=== PATIENT | male | born 1955 | race Hispanic/Latino ===

== ENCOUNTER 2020-07-12 16:39 | Inpatient (IN) | payer OTHER ==
--- OUTSIDE RECORDS SUMMARY | 2020-07-12 16:43 | XMS REPORT | Continuity of Care Document ---
:1955 Author Organization [facility] t Address [address] [place] [address] Care Team Providers Name Role Phone Unavailable Unavailable Unavailable Payers Payer Name Policy Type Policy Number Effective Date Expiration Date S ource Problems This patient has no known problems. Allergies, Adverse Reactions, Alerts Allergy Allergy Status Severity Reaction(s) Onset Inactive Treating Comm ents Source Name Type Date Date Clinician No Known DA Active U [facility] All[facility]ie 01-20 [place] 00:00: [address] Medications This patient has no known medications. Procedures This patient has no known procedures. Results Test Description Test Time Test Comments Results Result Comments Source GLUCOSE BEDSIDE TESTING 2020-02-08 11:55:00 Test Item Value Reference Range Interpretation Comme nts GLUCOSE BEDSIDE TESTING (test code = GLUBED) 137 MG/DL 60-99 H GLUCOSE BEDSIDE [id number] 08:08:00 Test Item Value Reference Range Interpretation Comments GLUCOSE BEDSIDE TESTING (test code 165 MG/DL 60-99 H = GLUBED) BASIC METABOLIC [id number] 06:52:00 Test Item Value Reference Range Interpretation Comments SODIUM (test code = 133 MMOL/L 137-145 L NA) POTASSIUM (test code = 4.7 MMOL/L 3.5-5.1 N K) CHLORIDE (test code = 99 MMOL/L 98-107 N CL) CARBON DIOXIDE (test 26 MMOL/L 22-30 N code = CO2) ANION GAP (test code = 13 MMOL/L 14-24 L GAP) GLUCOSE (test code = 166 MG/DL 74-106 H GLU) BLOOD UREA NITROGEN 21 MG/DL 9-20 H (test code = BUN) GLOMERULAR FILTRATION > 60 Report ing units: RATE (test code = GFR) ml/mi n/1.73 m2 (Modified MDRD Formula)Referen ce Range: > or = 6 0 ml/min/1.73 m2 CREATININE (test code 1.10 MG/DL 0.66-1.25 N = CREAT) CALCIUM (test code = 8.6 MG/DL 8.4-10.2 N CA) BASIC METABOLIC [id number] 06:50:00 Test Item Value Reference Range Interpretation Comments SODIUM (test code = 133 MMOL/L 137-145 L NA) POTASSIUM (test code = 4.7 MMOL/L 3.5-5.1 N K) CHLORIDE (test code = 99 MMOL/L 98-107 N CL) CARBON DIOXIDE (test MMOL/L 22-30 code = CO2) GLUCOSE (test code = MG/DL 74-106 GLU) BLOOD UREA NITROGEN MG/DL 9-20 (test code = BUN) GLOMERULAR FILTRATION > 60 Report ing units: RATE (test code = GFR) ml/mi n/1.73 m2 (Modified MDRD Formula)Referen ce Range: > or = 6 0 ml/min/1.73 m2 CREATININE (test code 1.10 MG/DL 0.66-1.25 N = CREAT) CALCIUM (test code = MG/DL 8.7-9.7 CA) BASIC METABOLIC [id number] 06:50:00 Test Item Value Reference Range Interpretation Comments SODIUM (test code = 133 MMOL/L 137-145 L NA) POTASSIUM (test code = 4.7 MMOL/L 3.5-5.1 N K) CHLORIDE (test code = 99 MMOL/L 98-107 N CL) CARBON DIOXIDE (test 26 MMOL/L 22-30 N code = CO2) ANION GAP (test code = 13 MMOL/L 14-24 L GAP) GLUCOSE (test code = MG/DL 74-106 GLU) BLOOD UREA NITROGEN MG/DL 9-20 (test code = BUN) GLOMERULAR FILTRATION > 60 Report ing units: RATE (test code = GFR) ml/mi n/1.73 m2 (Modified MDRD Formula)Referen ce Range: > or = 6 0 ml/min/1.73 m2 CREATININE (test code 1.10 MG/DL 0.66-1.25 N = CREAT) CALCIUM (test code = MG/DL 8.7-9.7 CA) BASIC METABOLIC [id number] 06:47:00 Test Item Value Reference Range Interpretation Comments SODIUM (test code = NA) 133 MMOL/L 137-145 L POTASSIUM (test code = K) 4.7 MMOL/L 3.5-5.1 N CHLORIDE (test code = CL) 99 MMOL/L 98-107 N CARBON DIOXIDE (test code = CO2) MMOL/L 22-30 GLUCOSE (test code = GLU) MG/DL 74-106 BLOOD UREA NITROGEN (test code = MG/DL 9-20 BUN) GLOMERULAR FILTRATION RATE (test code = GFR) CREATININE (test code = CREAT) MG/DL 0.66-1.25 CALCIUM (test code = CA) MG/DL 8.7-9.7 CBC W/AUTO [id number] 06:29:00 Test Item Value Reference Range Interpretation Comments WHITE BLOOD CELL (test code = 10.2 K/MM3 3.8-9.8 H WBC) RED BLOOD CELL (test code = 2.83 M/MM3 3.95-5.67 L RBC) HEMOGLOBIN (test code = HGB) 8.6 G/DL 12.4-16.7 L HEMATOCRIT (test code = HCT) 26.3 % 35.9-49.5 L MEAN CELL VOLUME (test code = 93 fL 81.7-96.1 N MCV) MEAN CELL HGB (test code = MCH) 30.4 pg 27.6-33.2 N MEAN CELL HGB CONCETRATION 32.7 % 32.9-35.5 L (test code = MCHC) RED CELL DISTRIBUTION WIDTH 13.5 % 12.1-15.2 N (test code = RDW) PLATELET COUNT (test code = 281 K/MM3 129-368 PLT) MEAN PLATELET VOLUME (test code 10.0 fl 7.4-10.4 N = MPV) NEUTROPHIL % (test code = NT%) 73.6 % 43-75 N IMMATURE GRANULOCYTE % (test 1.5 % 0.0-2.0 N code = IG%) LYMPHOCYTE % (test code = LY%) 9.6 % 14-44 L MONOCYTE % (test code = MO%) 13.2 % 4-13 H EOSINOPHIL % (test code = EO%) 1.7 % 0-6 N BASOPHIL % (test code = BA%) 0.4 % 0-2 N NUCLEATED RBC % (test code = 0.5 % 0-1.0 N NRBC%) NEUTROPHIL # (test code = NT#) 7.50 K/mm3 2.0-7.6 N IMMATURE GRANULOCYTE # (test 0.15 x10 3/uL 0-0.03 H code = IG#) LYMPHOCYTE # (test code = LY#) 0.98 K/mm3 1.0-3.8 L MONOCYTE # (test code = MO#) 1.34 K/mm3 0.1-0.8 H EOSINOPHIL # (test code = EO#) 0.17 K/mm3 0.0-0.2 N BASOPHIL # (test code = BA#) 0.04 K/mm3 0.0-0.2 N NUCLEATED RBC # (test code = 0.05 K/mm3 0.0-0.1 N NRBC#) GLUCOSE BEDSIDE [id number] 20:18:00 Test Item Value Reference Range Interpretation Comments GLUCOSE BEDSIDE TESTING (test code 149 MG/DL 60-99 H = GLUBED) GLUCOSE BEDSIDE [id number] 16:48:00 Test Item Value Reference Range Interpretation Comments GLUCOSE BEDSIDE TESTING (test code 164 MG/DL 60-99 H = GLUBED) CBC W/AUTO [id number] 15:10:00 Test Item Value Reference Range Interpretation Comments WHITE BLOOD CELL (test code = 8.6 K/MM3 3.8-9.8 N WBC) RED BLOOD CELL (test code = 2.56 M/MM3 3.95-5.67 L RBC) HEMOGLOBIN (test code = HGB) 7.8 G/DL 12.4-16.7 L HEMATOCRIT (test code = HCT) 23.2 % 35.9-49.5 L MEAN CELL VOLUME (test code = 91 fL 81.7-96.1 N MCV) MEAN CELL HGB (test code = MCH) 30.5 pg 27.6-33.2 N MEAN CELL HGB CONCETRATION 33.6 % 32.9-35.5 N (test code = MCHC) RED CELL DISTRIBUTION WIDTH 13.4 % 12.1-15.2 N (test code = RDW) PLATELET COUNT (test code = 217 K/MM3 129-368 PLT) MEAN PLATELET VOLUME (test code 10.0 fl 7.4-10.4 N = MPV) NEUTROPHIL % (test code = NT%) 67.2 % 43-75 N IMMATURE GRANULOCYTE % (test 1.3 % 0.0-2.0 N code = IG%) LYMPHOCYTE % (test code = LY%) 14.1 % 14-44 N MONOCYTE % (test code = MO%) 16.3 % 4-13 H EOSINOPHIL % (test code = EO%) 0.8 % 0-6 N BASOPHIL % (test code = BA%) 0.3 % 0-2 N NUCLEATED RBC % (test code = 0.5 % 0-1.0 N NRBC%) NEUTROPHIL # (test code = NT#) 5.80 K/mm3 2.0-7.6 N IMMATURE GRANULOCYTE # (test 0.11 x10 3/uL 0-0.03 H code = IG#) LYMPHOCYTE # (test code = LY#) 1.22 K/mm3 1.0-3.8 N MONOCYTE # (test code = MO#) 1.41 K/mm3 0.1-0.8 H EOSINOPHIL # (test code = EO#) 0.07 K/mm3 0.0-0.2 N BASOPHIL # (test code = BA#) 0.03 K/mm3 0.0-0.2 N NUCLEATED RBC # (test code = 0.04 K/mm3 0.0-0.1 N NRBC#) BASIC METABOLIC [id number] 13:50:00 Test Item Value Reference Range Interpretation Comments SODIUM (test code = 132 MMOL/L 137-145 L NA) POTASSIUM (test code = 4.0 MMOL/L 3.5-5.1 N K) CHLORIDE (test code = 98 MMOL/L 98-107 N CL) CARBON DIOXIDE (test 25 MMOL/L 22-30 N code = CO2) ANION GAP (test code = 13 MMOL/L 14-24 L GAP) GLUCOSE (test code = 138 MG/DL 74-106 H GLU) BLOOD UREA NITROGEN 21 MG/DL 9-20 H (test code = BUN) GLOMERULAR FILTRATION > 60 Report ing units: RATE (test code = GFR) ml/mi n/1.73 m2 (Modified MDRD Formula)Referen ce Range: > or = 6 0 ml/min/1.73 m2 CREATININE (test code 1.00 MG/DL 0.66-1.25 N = CREAT) CALCIUM (test code = 8.2 MG/DL 8.4-10.2 L CA) BASIC METABOLIC [id number] 13:48:00 Test Item Value Reference Range Interpretation Comments SODIUM (test code = 132 MMOL/L 137-145 L NA) POTASSIUM (test code = 4.0 MMOL/L 3.5-5.1 N K) CHLORIDE (test code = 98 MMOL/L 98-107 N CL) CARBON DIOXIDE (test MMOL/L 22-30 code = CO2) GLUCOSE (test code = MG/DL 74-106 GLU) BLOOD UREA NITROGEN MG/DL 9-20 (test code = BUN) GLOMERULAR FILTRATION > 60 Report ing units: RATE (test code = GFR) ml/mi n/1.73 m2 (Modified MDRD Formula)Referen ce Range: > or = 6 0 ml/min/1.73 m2 CREATININE (test code 1.00 MG/DL 0.66-1.25 N = CREAT) CALCIUM (test code = MG/DL 8.7-9.7 CA) BASIC METABOLIC [id number] 13:46:00 Test Item Value Reference Range Interpretation Comments SODIUM (test code = NA) 132 MMOL/L 137-145 L POTASSIUM (test code = K) 4.0 MMOL/L 3.5-5.1 N CHLORIDE (test code = CL) 98 MMOL/L 98-107 N CARBON DIOXIDE (test code = CO2) MMOL/L 22-30 GLUCOSE (test code = GLU) MG/DL 74-106 BLOOD UREA NITROGEN (test code = MG/DL 9-20 BUN) GLOMERULAR FILTRATION RATE (test code = GFR) CREATININE (test code = CREAT) MG/DL 0.66-1.25 CALCIUM (test code = CA) MG/DL 8.7-9.7 GLUCOSE BEDSIDE [id number] 09:47:00 Test Item Value Reference Range Interpretation Comments GLUCOSE BEDSIDE TESTING (test code 237 MG/DL 60-99 H = GLUBED) - XR CHEST [id number] 08:13:00 Patient Name: AKILAH ANDRES Unit No: [id number] EXAMS: CPT CODE: [id number] XR CHEST 1V [id number] EXAM: XR Chest 1 View INDICATION: S/P CABG LOCATION CODE: B2 COMPARISON: Chest radiograph dated 02/06/2020 TECHNIQUE: Frontal view of the chest was obtained. FINDINGS: Right subclavian central venous catheter has its tip at the mid superior vena cava. Pulmonary vascular congestion is unchanged from prior. There is no pleural effusion or pneumothorax. The cardiomediastinal silhouette is enlarged, but unchanged. No acute osseous abnormality is identified. IMPRESSION: No interval change from prior radiograph. at 08 Reported and signed by: Gloria Goss MD CC: Case Castellanos MD Technologist: Baylee Diego RT(R) Transcrpt Date/Tm/Trnsp: 02/07/2020 (812) [id number].[email or web address].[id number] Orig Print D/T: S: 02/07/2020 (817) [facility] NAME: AKILAH ANDRES [id number] PHYS: [place] [address] : 1955 AGE: 64 SEX: M LOC: Z.364 A PHONE #: [phone] EXAM DATE: 02/07/2020 STATUS: ADM IN FAX #: [phone] RADIOLOGY NO: PAGE 1 Signed ReportGLUCOSE BEDSIDE [id number] 08:07:00 Test Item Value Reference Range Interpretation Comments GLUCOSE BEDSIDE TESTING (test code 292 MG/DL 60-99 H = GLUBED) GLUCOSE BEDSIDE [id number] 03:04:00 Test Item Value Reference Range Interpretation Comments GLUCOSE BEDSIDE TESTING (test code 187 MG/DL 60-99 H = GLUBED) GLUCOSE BEDSIDE [id number] 19:58:00 Test Item Value Reference Range Interpretation Comments GLUCOSE BEDSIDE TESTING (test code 233 MG/DL 60-99 H = GLUBED) GLUCOSE BEDSIDE [id number] 14:17:00 Test Item Value Reference Range Interpretation Comments GLUCOSE BEDSIDE TESTING (test code 256 MG/DL 60-99 H = GLUBED) - XR CHEST [id number] 10:51:00 Patient Name: AKILAH ANDRES Unit No: [id number] EXAMS: CPT CODE: [id number] XR CHEST 1V [id number] Dictation location: U19. CHEST, FRONTAL VIEW HI STORY: post chest tube removal FINDINGS: Since 02/06/20, the left chest tubes and likely mediastinal drains have been removed. No pneumothorax. Continued cardiomegaly with mild central vascular congestion. Aorta is partially calcified. Sternotomy wires. Right subclavian line within the SVC. Degenerative changes affect the thoracic spine. IMPRESSION: Removal of the chest tubes. No pneumothorax. at 1051 Reported and signed by: Yina Barrios MD CC: Case Castellanos MD; Sara Dillon FLATBED DRIVER Technologist: [facility] STUDENT ; RT Carla(R) Transcrpt Date/Tm/Trnsp: 02/06/2020 (1051) [id number].SDR.SP17 Orig Print D/T: S: 02/06/2020 (2193) [facility] NAME: ANDRESAKILAH [address] PHYS: GABRIELE.Anjali [place] [address] : 1955 AGE: 64 SEX: M [facility] NO: [id number] LOC: Z.SI02 A PHONE #: [phone] EXAMDATE: 02/06/2020 STATUS: ADM IN FAX #: [phone] RADIOLOGY NO: PAGE1 Signed ReportGLUCOSE BEDSIDE [id number] 09:54:00 Test Item Value Reference Range Interpretation Comments GLUCOSE BEDSIDE TESTING (test code 222 MG/DL 60-99 H = GLUBED) GLUCOSE BEDSIDE [id number] 09:53:00 Test Item Value Reference Range Interpretation Comments GLUCOSE BEDSIDE TESTING (test code 162 MG/DL 60-99 H = GLUBED) GLUCOSE BEDSIDE [id number] 09:50:00 Test Item Value Reference Range Interpretation Comments GLUCOSE BEDSIDE TESTING (test code 135 MG/DL 60-99 H = GLUBED) GLUCOSE BEDSIDE [id number] 09:49:00 Test Item Value Reference Range Interpretation Comments GLUCOSE BEDSIDE TESTING (test code 180 MG/DL 60-99 H = GLUBED) GLUCOSE BEDSIDE [id number] 09:35:00 Test Item Value Reference Range Interpretation Comments GLUCOSE BEDSIDE TESTING (test code 231 MG/DL 60-99 H = GLUBED) - XR CHEST [id number] 07:52:00 Patient Name: AKILAH ANDRES Unit No: [id number] EXAMS: CPT CODE: [id number] XR CHEST 1V [id number] EXAM: XR Chest 1 View INDICATION: S/P CABG LOCATION CODE: B2 COMPARISON: Chest radiograph dated 02/05/2020 TECHNIQUE: Frontal view of the chest was obtained. FINDINGS: Life support lines and tubesare in unchanged position. Mild pulmonary vascular congestion is unchanged from prior. Thereis no pleural effusion or pneumothorax. The cardiomediastinal silhouette is enlarged, but unchanged. No acute osseous abnormality is identified. IMPRESSION: No interval change from prior radiograph. at 0752 Reported and signed by: Gloria Goss MD CC: Case Castellanos MD Technologist: Westley Granger, RT(R) Transcrpt Date/Tm/Trnsp: 02/06/2020 (075) [id number].[email or web address].[id number] Orig Print D/T: S: 02/06/2020 (0757) [facility] NAME: AKILAH ANDRES [address] PHYS: [place] [address] : 1955 AGE: 64 SEX: M LOC: Z.SI02 A PHONE #: [phone] EXAM DATE: 02/06/2020 STATUS: ADM IN FAX #: [phone] RADIOLOGY NO: PAGE 1 Signed ReportBASIC METABOLIC PANEL 2020-02-06 05:16:00 Test Item Value Reference Range Interpretation Comments SODIUM (test code = 132 MMOL/L 137-145 L NA) POTASSIUM (test code = 4.1 MMOL/L 3.5-5.1 N K) CHLORIDE (test code = 96 MMOL/L 98-107 L CL) CARBON DIOXIDE (test 26 MMOL/L 22-30 N code = CO2) GLUCOSE (test code = 256 MG/DL 74-106 H GLU) BLOOD UREA NITROGEN 25 MG/DL 9-20 H (test code = BUN) GLOMERULAR FILTRATION > 60 Report ing units: RATE (test code = GFR) ml/mi n/1.73 m2 (Modified MDRD Formula)Referen ce Range: > or = 6 0 ml/min/1.73 m2 CREATININE (test code 1.00 MG/DL 0.66-1.25 N = CREAT) CALCIUM (test code = 8.4 MG/DL 8.4-10.2 N CA) [id number] 05:16:00 Test Item Value Reference Range Interpretation Comments MAGNESIUM (test code = MAG) 1.9 MG/DL 1.6-2.3 N BASIC METABOLIC [id number] 05:14:00 Test Item Value Reference Range Interpretation Comments SODIUM (test code = 132 MMOL/L 137-145 L NA) POTASSIUM (test code = 4.1 MMOL/L 3.5-5.1 N K) CHLORIDE (test code = 96 MMOL/L 98-107 L CL) CARBON DIOXIDE (test MMOL/L 22-30 code = CO2) GLUCOSE (test code = MG/DL 74-106 GLU) BLOOD UREA NITROGEN MG/DL 9-20 (test code = BUN) GLOMERULAR FILTRATION > 60 Report ing units: RATE (test code = GFR) ml/mi n/1.73 m2 (Modified MDRD Formula)Referen ce Range: > or = 6 0 ml/min/1.73 m2 CREATININE (test code 1.00 MG/DL 0.66-1.25 N = CREAT) CALCIUM (test code = MG/DL 8.7-9.7 CA) [id number] 05:14:00 Test Item Value Reference Range Interpretation Comments MAGNESIUM (test code = MAG) MG/DL 1.6-2.3 BASIC METABOLIC [id number] 05:13:00 Test Item Value Reference Range Interpretation Comments SODIUM (test code = NA) 132 MMOL/L 137-145 L POTASSIUM (test code = K) 4.1 MMOL/L 3.5-5.1 N CHLORIDE (test code = CL) 96 MMOL/L 98-107 L CARBON DIOXIDE (test code = CO2) MMOL/L 22-30 GLUCOSE (test code = GLU) MG/DL 74-106 BLOOD UREA NITROGEN (test code = MG/DL 9-20 BUN) GLOMERULAR FILTRATION RATE (test code = GFR) CREATININE (test code = CREAT) MG/DL 0.66-1.25 CALCIUM (test code = CA) MG/DL 8.7-9.7 [id number] 05:13:00 Test Item Value Reference Range Interpretation Comments MAGNESIUM (test code = MAG) MG/DL 1.6-2.3 BASIC METABOLIC [id number] 05:12:00 Test Item Value Reference Range Interpretation Comments SODIUM (test code = NA) 132 MMOL/L 137-145 L POTASSIUM (test code = K) MMOL/L 3.5-5.1 CHLORIDE (test code = CL) 96 MMOL/L 98-107 L CARBON DIOXIDE (test code = CO2) MMOL/L 22-30 GLUCOSE (test code = GLU) MG/DL 74-106 BLOOD UREA NITROGEN (test code = MG/DL 9-20 BUN) GLOMERULAR FILTRATION RATE (test code = GFR) CREATININE (test code = CREAT) MG/DL 0.66-1.25 CALCIUM (test code = CA) MG/DL 8.7-9.7 [id number] 05:12:00 Test Item Value Reference Range Interpretation Comments MAGNESIUM (test code = MAG) MG/DL 1.6-2.3 PROTHROMBIN [id number] 05:04:00 Test Item Value Reference Range Interpretation Comments PROTHROMBIN TIME 13.0 SECONDS 9.4-12.5 H PATIENT (test code = PTP) INTERNATIONAL NORMAL 1.2 The INR is to be RATIO (test code = used only for INR) monitoring oral anticoagulantth erap y. INDICATION I NR VALUE ---- ---- ---- -------1. Prophylaxis, de ep venous thrombos is, including hig h risk surgery. 2.0 - 3.0 2. Prophylaxis, de ep venous thrombos is, hip surgery, treatment for d eep venous thrombosis or pulmonary prevention of systemic emboli sm in patients wit h valvular heart disease, atrial fibrillation, tissue heart va lve, or acute myocar dial infarction. 2.0 - 3 .0 3. Mechanical prosthesis hear t valves, recurrent syste agustin embolism. 3.0 - 4.5 PTT [id number] 05:04:00 Test Item Value Reference Range Interpretation Comments PTT ACTIVATED (test code = APTT) 23.7 SECONDS 25.1-36.5 L CBC W/AUTO [id number] 04:58:00 Test Item Value Reference Range Interpretation Comments WHITE BLOOD CELL (test code = 10.8 K/MM3 3.8-9.8 H WBC) RED BLOOD CELL (test code = 2.68 M/MM3 3.95-5.67 L RBC) HEMOGLOBIN (test code = HGB) 8.3 G/DL 12.4-16.7 L HEMATOCRIT (test code = HCT) 24.3 % 35.9-49.5 L MEAN CELL VOLUME (test code = 91 fL 81.7-96.1 N MCV) MEAN CELL HGB (test code = MCH) 31.0 pg 27.6-33.2 N MEAN CELL HGB CONCETRATION 34.2 % 32.9-35.5 N (test code = MCHC) RED CELL DISTRIBUTION WIDTH 13.4 % 12.1-15.2 N (test code = RDW) PLATELET COUNT (test code = 166 K/MM3 129-368 PLT) MEAN PLATELET VOLUME (test code 9.6 fl 7.4-10.4 N = MPV) NEUTROPHIL % (test code = NT%) 74.6 % 43-75 N IMMATURE GRANULOCYTE % (test 1.2 % 0.0-2.0 N code = IG%) LYMPHOCYTE % (test code = LY%) 12.6 % 14-44 L MONOCYTE % (test code = MO%) 10.8 % 4-13 N EOSINOPHIL % (test code = EO%) 0.5 % 0-6 N BASOPHIL % (test code = BA%) 0.3 % 0-2 N NUCLEATED RBC % (test code = 0.0 % 0-1.0 N NRBC%) NEUTROPHIL # (test code = NT#) 8.09 K/mm3 2.0-7.6 H IMMATURE GRANULOCYTE # (test 0.13 x10 3/uL 0-0.03 H code = IG#) LYMPHOCYTE # (test code = LY#) 1.37 K/mm3 1.0-3.8 N MONOCYTE # (test code = MO#) 1.17 K/mm3 0.1-0.8 H EOSINOPHIL # (test code = EO#) 0.05 K/mm3 0.0-0.2 N BASOPHIL # (test code = BA#) 0.03 K/mm3 0.0-0.2 N NUCLEATED RBC # (test code = 0.00 K/mm3 0.0-0.1 N NRBC#) GLUCOSE BEDSIDE [id number] 17:06:00 Test Item Value Reference Range Interpretation Comments GLUCOSE BEDSIDE TESTING 385 MG/DL 60-99 HH Noti fied Physician~ (test code = GLUBED) GLUCOSE BEDSIDE [id number] 12:54:00 Test Item Value Reference Range Interpretation Comments GLUCOSE BEDSIDE TESTING 357 MG/DL 60-99 HH Noti fied Physician~ (test code = GLUBED) - XR CHEST [id number] 08:06:00 Patient Name: AKILAH ANDRES Unit No: [id number] EXAMS: CPT CODE: [id number] XR CHEST 1V [id number] EXAM: CHEST ONE VIEW INDICATION: S/P CABG LOCATION: B2 COMPARISON: February 04, 2020 TECHNIQUE: AP view of the chest FINDINGS: Right central venous catheter tip overlies the atriocaval junction. The heart size is enlarged. There is evidence of prior thoracic surgery. Mild congestive changes bilaterally. No pneumothorax or pleural effusion is identified. The osseous structures are normal. IMPRESSION: Cardiomegaly with mild congestive changes. at 0806 Reported and signed by: Flakita Zamora MD CC: Case Castellanos MDTechnologist: Westley Granger, RT(R) Transcrpt Date/Tm/Trnsp: 02/05/2020 (805) 16 Orig Print D/T: S: 02/05/2020 (808) [facility] NAME: AKILAH ANDRES [address] PHYS: [place] [address] : 1955 AGE: 64 SEX: M LOC: [id number].[id number] APHONE #: [phone] EXAM DATE: 02/05/2020 STATUS: ADM IN FAX #: [phone] RADIOLOGY NO: PAGE 1 Signed ReportBASIC METABOLIC [id number] 05:34:00 Test Item Value Reference Range Interpretation Comments SODIUM (test code = 134 MMOL/L 137-145 L NA) POTASSIUM (test code = 4.6 MMOL/L 3.5-5.1 N K) CHLORIDE (test code = 97 MMOL/L 98-107 L CL) CARBON DIOXIDE (test 26 MMOL/L 22-30 N code = CO2) GLUCOSE (test code = 253 MG/DL 74-106 H GLU) BLOOD UREA NITROGEN 23 MG/DL 9-20 H (test code = BUN) GLOMERULAR FILTRATION > 60 Report ing units: RATE (test code = GFR) ml/mi n/1.73 m2 (Modified MDRD Formula)Referen ce Range: > or = 6 0 ml/min/1.73 m2 CREATININE (test code 1.10 MG/DL 0.66-1.25 N = CREAT) CALCIUM (test code = 8.1 MG/DL 8.4-10.2 L CA) [id number] 05:34:00 Test Item Value Reference Range Interpretation Comments MAGNESIUM (test code = MAG) 1.9 MG/DL 1.6-2.3 N BASIC METABOLIC [id number] 05:33:00 Test Item Value Reference Range Interpretation Comments SODIUM (test code = 134 MMOL/L 137-145 L NA) POTASSIUM (test code = 4.6 MMOL/L 3.5-5.1 N K) CHLORIDE (test code = 97 MMOL/L 98-107 L CL) CARBON DIOXIDE (test 26 MMOL/L 22-30 N code = CO2) GLUCOSE (test code = 253 MG/DL 74-106 H GLU) BLOOD UREA NITROGEN 23 MG/DL 9-20 H (test code = BUN) GLOMERULAR FILTRATION > 60 Report ing units: RATE (test code = GFR) ml/mi n/1.73 m2 (Modified MDRD Formula)Referen ce Range: > or = 6 0 ml/min/1.73 m2 CREATININE (test code 1.10 MG/DL 0.66-1.25 N = CREAT) CALCIUM (test code = 8.1 MG/DL 8.4-10.2 L CA) [id number] 05:33:00 Test Item Value Reference Range Interpretation Comments MAGNESIUM (test code = MAG) MG/DL 1.6-2.3 BASIC METABOLIC [id number] 05:32:00 Test Item Value Reference Range Interpretation Comments SODIUM (test code = 134 MMOL/L 137-145 L NA) POTASSIUM (test code = 4.6 MMOL/L 3.5-5.1 N K) CHLORIDE (test code = 97 MMOL/L 98-107 L CL) CARBON DIOXIDE (test MMOL/L 22-30 code = CO2) GLUCOSE (test code = MG/DL 74-106 GLU) BLOOD UREA NITROGEN MG/DL 9-20 (test code = BUN) GLOMERULAR FILTRATION > 60 Report ing units: RATE (test code = GFR) ml/mi n/1.73 m2 (Modified MDRD Formula)Referen ce Range: > or = 6 0 ml/min/1.73 m2 CREATININE (test code 1.10 MG/DL 0.66-1.25 N = CREAT) CALCIUM (test code = MG/DL 8.7-9.7 CA) [id number] 05:32:00 Test Item Value Reference Range Interpretation Comments MAGNESIUM (test code = MAG) MG/DL 1.6-2.3 BASIC METABOLIC [id number] 05:30:00 Test Item Value Reference Range Interpretation Comments SODIUM (test code = NA) 134 MMOL/L 137-145 L POTASSIUM (test code = K) 4.6 MMOL/L 3.5-5.1 N CHLORIDE (test code = CL) 97 MMOL/L 98-107 L CARBON DIOXIDE (test code = CO2) MMOL/L 22-30 GLUCOSE (test code = GLU) MG/DL 74-106 BLOOD UREA NITROGEN (test code = MG/DL 9-20 BUN) GLOMERULAR FILTRATION RATE (test code = GFR) CREATININE (test code = CREAT) MG/DL 0.66-1.25 CALCIUM (test code = CA) MG/DL 8.7-9.7 [id number] 05:30:00 Test Item Value Reference Range Interpretation Comments MAGNESIUM (test code = MAG) MG/DL 1.6-2.3 PROTHROMBIN [id number] 05:25:00 Test Item Value Reference Range Interpretation Comments PROTHROMBIN TIME 13.0 SECONDS 9.4-12.5 H PATIENT (test code = PTP) INTERNATIONAL NORMAL 1.2 The INR is to be RATIO (test code = used only for INR) monitoring oral anticoagulantth erap y. INDICATION I NR VALUE ---- ---- ---- -------1. Prophylaxis, de ep venous thrombos is, including hig h risk surgery. 2.0 - 3.0 2. Prophylaxis, de ep venous thrombos is, hip surgery, treatment for d eep venous thrombosis or pulmonary prevention of systemic emboli sm in patients wit h valvular heart disease, atrial fibrillation, tissue heart va lve, or acute myocar dial infarction. 2.0 - 3 .0 3. Mechanical prosthesis hear t valves, recurrent syste agustin embolism. 3.0 - 4.5 PTT [id number] 05:25:00 Test Item Value Reference Range Interpretation Comments PTT ACTIVATED (test code = APTT) 23.5 SECONDS 25.1-36.5 L CBC W/AUTO [id number] 05:12:00 Test Item Value Reference Range Interpretation Comments WHITE BLOOD CELL (test code = 12.7 K/MM3 3.8-9.8 H WBC) RED BLOOD CELL (test code = 2.42 M/MM3 3.95-5.67 L RBC) HEMOGLOBIN (test code = HGB) 7.4 G/DL 12.4-16.7 L HEMATOCRIT (test code = HCT) 22.1 % 35.9-49.5 L MEAN CELL VOLUME (test code = 91 fL 81.7-96.1 N MCV) MEAN CELL HGB (test code = MCH) 30.6 pg 27.6-33.2 N MEAN CELL HGB CONCETRATION 33.5 % 32.9-35.5 N (test code = MCHC) RED CELL DISTRIBUTION WIDTH 13.2 % 12.1-15.2 N (test code = RDW) PLATELET COUNT (test code = 128 K/MM3 129-368 L PLT) MEAN PLATELET VOLUME (test code 9.6 fl 7.4-10.4 N = MPV) NEUTROPHIL % (test code = NT%) 80.7 % 43-75 H IMMATURE GRANULOCYTE % (test 0.8 % 0.0-2.0 N code = IG%) LYMPHOCYTE % (test code = LY%) 9.1 % 14-44 L MONOCYTE % (test code = MO%) 9.1 % 4-13 N EOSINOPHIL % (test code = EO%) 0.1 % 0-6 N BASOPHIL % (test code = BA%) 0.2 % 0-2 N NUCLEATED RBC % (test code = 0.0 % 0-1.0 N NRBC%) NEUTROPHIL # (test code = NT#) 10.24 K/mm3 2.0-7.6 H IMMATURE GRANULOCYTE # (test 0.10 x10 3/uL 0-0.03 H code = IG#) LYMPHOCYTE # (test code = LY#) 1.16 K/mm3 1.0-3.8 N MONOCYTE # (test code = MO#) 1.15 K/mm3 0.1-0.8 H EOSINOPHIL # (test code = EO#) 0.01 K/mm3 0.0-0.2 N BASOPHIL # (test code = BA#) 0.03 K/mm3 0.0-0.2 N NUCLEATED RBC # (test code = 0.00 K/mm3 0.0-0.1 N NRBC#) GLUCOSE BEDSIDE [id number] 21:57:00 Test Item Value Reference Range Interpretation Comments GLUCOSE BEDSIDE TESTING (test code 169 MG/DL 60-99 H = GLUBED) GLUCOSE BEDSIDE [id number] 19:33:00 Test Item Value Reference Range Interpretation Comments GLUCOSE BEDSIDE TESTING (test code 109 MG/DL 60-99 H = GLUBED) GLUCOSE BEDSIDE [id number] 18:09:00 Test Item Value Reference Range Interpretation Comments GLUCOSE BEDSIDE TESTING (test code 159 MG/DL 60-99 H = GLUBED) GLUCOSE BEDSIDE [id number] 17:26:00 Test Item Value Reference Range Interpretation Comments GLUCOSE BEDSIDE TESTING (test code 187 MG/DL 60-99 H = GLUBED) GLUCOSE BEDSIDE [id number] 17:26:00 Test Item Value Reference Range Interpretation Comments GLUCOSE BEDSIDE TESTING (test code 182 MG/DL 60-99 H = GLUBED) GLUCOSE BEDSIDE [id number] 15:47:00 Test Item Value Reference Range Interpretation Comments GLUCOSE BEDSIDE TESTING (test code 202 MG/DL 60-99 H = GLUBED) GLUCOSE BEDSIDE [id number] 14:50:00 Test Item Value Reference Range Interpretation Comments GLUCOSE BEDSIDE TESTING (test code 219 MG/DL 60-99 H = GLUBED) GLUCOSE BEDSIDE [id number] 14:50:00 Test Item Value Reference Range Interpretation Comments GLUCOSE BEDSIDE TESTING (test code 206 MG/DL 60-99 H = GLUBED) GLUCOSE BEDSIDE [id number] 12:30:00 Test Item Value Reference Range Interpretation Comments GLUCOSE BEDSIDE TESTING (test code 228 MG/DL 60-99 H = GLUBED) GLUCOSE BEDSIDE [id number] 10:07:00 Test Item Value Reference Range Interpretation Comments GLUCOSE BEDSIDE TESTING (test code 155 MG/DL 60-99 H = GLUBED) GLUCOSE BEDSIDE [id number] 09:10:00 Test Item Value Reference Range Interpretation Comments GLUCOSE BEDSIDE TESTING (test code 173 MG/DL 60-99 H = GLUBED) GLUCOSE BEDSIDE [id number] 07:43:00 Test Item Value Reference Range Interpretation Comments GLUCOSE BEDSIDE TESTING (test code 162 MG/DL 60-99 H = GLUBED) - XR CHEST [id number] 07:38:00 Patient Name: AKILAH ANDRES Unit No: [id number] EXAMS: CPT CODE: [id number] XR CHEST 1V 46631 R16 EXAM: - XR CHEST 1V HISTORY: S/P CABG COMPARISON: 02/03/2020 FINDINGS: Interval removal of endotracheal tube. [place] catheter and right subclavian central line in unchanged position. Pleural and pericardial drains are also unchanged. Median sternotomy wires again noted. Patchy bibasilar airspace opacities are decreased compared to the prior exam. No pleural effusion or pneumothorax. The cardiac silhouette is within normal limits. No acute osseous abnormalities. IMPRESSION: Improved aeration with decreased bibasilar atelectasis and/or pulmonary edema. at 0738 Reported and signed by: Luis Alfredo Atkins MD CC: Case Castellanos MD Technologist: Westley Granger, RT(R) Transcrpt Date/Tm/Trnsp: 02/04/2020 (737) [id number] Orig Print D/T: S: 02/04/2020 (740) [facility] NAME: AKILAH ANDRES [id number] PHYS: [place] [address] : 1955 AGE: 64 SEX: M LOC: [id number].[id number] PHONE #: [phone] EXAM DATE: 02/04/2020 STATUS: ADM IN FAX #: [phone] RADIOLOGY NO: PAGE 1 Signed ReportGLUCOSE BEDSIDE [id number] 06:44:00 Test Item Value Reference Range Interpretation Comments GLUCOSE BEDSIDE TESTING (test code 160 MG/DL 60-99 H = GLUBED) GLUCOSE BEDSIDE [id number] 06:44:00 Test Item Value Reference Range Interpretation Comments GLUCOSE BEDSIDE TESTING (test code 151 MG/DL 60-99 H = GLUBED) GLUCOSE BEDSIDE [id number] 06:44:00 Test Item Value Reference Range Interpretation Comments GLUCOSE BEDSIDE TESTING (test code 162 MG/DL 60-99 H = GLUBED) GLUCOSE BEDSIDE [id number] 06:44:00 Test Item Value Reference Range Interpretation Comments GLUCOSE BEDSIDE TESTING (test code 201 MG/DL 60-99 H = GLUBED) GLUCOSE BEDSIDE [id number] 06:44:00 Test Item Value Reference Range Interpretation Comments GLUCOSE BEDSIDE TESTING (test code 212 MG/DL 60-99 H = GLUBED) GLUCOSE BEDSIDE [id number] 06:44:00 Test Item Value Reference Range Interpretation Comments GLUCOSE BEDSIDE TESTING (test code 168 MG/DL 60-99 H = GLUBED) GLUCOSE BEDSIDE [id number] 06:44:00 Test Item Value Reference Range Interpretation Comments GLUCOSE BEDSIDE TESTING (test code 161 MG/DL 60-99 H = GLUBED) BASIC METABOLIC [id number] 04:38:00 Test Item Value Reference Range Interpretation Comments SODIUM (test code = 140 MMOL/L 137-145 N NA) POTASSIUM (test code = 4.1 MMOL/L 3.5-5.1 N K) CHLORIDE (test code = 103 MMOL/L 98-107 N CL) CARBON DIOXIDE (test 31 MMOL/L 22-30 H code = CO2) ANION GAP (test code = 10 MMOL/L 14-24 L GAP) GLUCOSE (test code = 181 MG/DL 74-106 H GLU) BLOOD UREA NITROGEN 23 MG/DL 9-20 H (test code = BUN) GLOMERULAR FILTRATION > 60 Report ing units: RATE (test code = GFR) ml/mi n/1.73 m2 (Modified MDRD Formula)Referen ce Range: > or = 6 0 ml/min/1.73 m2 CREATININE (test code 1.20 MG/DL 0.66-1.25 N = CREAT) CALCIUM (test code = 8.6 MG/DL 8.4-10.2 N CA) [id number] 04:38:00 Test Item Value Reference Range Interpretation Comments MAGNESIUM (test code = MAG) 2.1 MG/DL 1.6-2.3 PROTHROMBIN [id number] 04:34:00 Test Item Value Reference Range Interpretation Comments PROTHROMBIN TIME 13.2 SECONDS 9.4-12.5 H PATIENT (test code = PTP) INTERNATIONAL NORMAL 1.2 The INR is to be RATIO (test code = used only for INR) monitoring oral anticoagulantth erap y. INDICATION I NR VALUE ---- ---- ---- -------1. Prophylaxis, de ep venous thrombos is, including hig h risk surgery. 2.0 - 3.0 2. Prophylaxis, de ep venous thrombos is, hip surgery, treatment for d eep venous thrombosis or pulmonary prevention of systemic emboli sm in patients wit h valvular heart disease, atrial fibrillation, tissue heart va lve, or acute myocar dial infarction. 2.0 - 3 .0 3. Mechanical prosthesis hear t valves, recurrent syste agustin embolism. 3.0 - 4.5 PTT [id number] 04:34:00 Test Item Value Reference Range Interpretation Comments PTT ACTIVATED (test code = APTT) 23.3 SECONDS 25.1-36.5 L BASIC METABOLIC [id number] 04:34:00 Test Item Value Reference Range Interpretation Comments SODIUM (test code = NA) 140 MMOL/L 137-145 N POTASSIUM (test code = K) 4.1 MMOL/L 3.5-5.1 N CHLORIDE (test code = CL) 103 MMOL/L 98-107 N CARBON DIOXIDE (test code = CO2) MMOL/L 22-30 GLUCOSE (test code = GLU) MG/DL 74-106 BLOOD UREA NITROGEN (test code = MG/DL 9-20 BUN) GLOMERULAR FILTRATION RATE (test code = GFR) CREATININE (test code = CREAT) MG/DL 0.66-1.25 CALCIUM (test code = CA) MG/DL 8.7-9.7 [id number] 04:34:00 Test Item Value Reference Range Interpretation Comments MAGNESIUM (test code = MAG) MG/DL 1.6-2.3 CBC W/AUTO [id number] 04:22:00 Test Item Value Reference Range Interpretation Comments WHITE BLOOD CELL (test code = 10.1 K/MM3 3.8-9.8 H WBC) RED BLOOD CELL (test code = 2.76 M/MM3 3.95-5.67 L RBC) HEMOGLOBIN (test code = HGB) 8.4 G/DL 12.4-16.7 L HEMATOCRIT (test code = HCT) 24.9 % 35.9-49.5 L MEAN CELL VOLUME (test code = 90 fL 81.7-96.1 N MCV) MEAN CELL HGB (test code = MCH) 30.4 pg 27.6-33.2 N MEAN CELL HGB CONCETRATION 33.7 % 32.9-35.5 N (test code = MCHC) RED CELL DISTRIBUTION WIDTH 13.2 % 12.1-15.2 N (test code = RDW) PLATELET COUNT (test code = 150 K/MM3 129-368 N PLT) MEAN PLATELET VOLUME (test code 9.4 fl 7.4-10.4 N = MPV) NEUTROPHIL % (test code = NT%) 82.6 % 43-75 H IMMATURE GRANULOCYTE % (test 0.5 % 0.0-2.0 N code = IG%) LYMPHOCYTE % (test code = LY%) 8.4 % 14-44 L MONOCYTE % (test code = MO%) 8.4 % 4-13 N EOSINOPHIL % (test code = EO%) 0.0 % 0-6 N BASOPHIL % (test code = BA%) 0.1 % 0-2 N NUCLEATED RBC % (test code = 0.0 % 0-1.0 N NRBC%) NEUTROPHIL # (test code = NT#) 8.31 K/mm3 2.0-7.6 H IMMATURE GRANULOCYTE # (test 0.05 x10 3/uL 0-0.03 H code = IG#) LYMPHOCYTE # (test code = LY#) 0.85 K/mm3 1.0-3.8 L MONOCYTE # (test code = MO#) 0.85 K/mm3 0.1-0.8 H EOSINOPHIL # (test code = EO#) 0.00 K/mm3 0.0-0.2 N BASOPHIL # (test code = BA#) 0.01 K/mm3 0.0-0.2 N NUCLEATED RBC # (test code = 0.00 K/mm3 0.0-0.1 N NRBC#) - XR CHEST [id number] 18:08:00 Patient Name: AKILAH ANDRES Unit No: [id number] EXAMS: CPT CODE: [id number] XR CHEST 1V 07114 Site ID: [id number] HISTORY: Status post CABG COMPARISON: Chest x-ray of the prior day FINDINGS: Endotracheal tube terminates appropriately, approximately 4.5 cm above the michelle. Right subclavian line is at the SVC, [place] at the right main pulmonary artery. The cardiomediastinal silhouette is moderately enlarged, with mediastinal drains in place. Central pulmonary vascular engorgement and mild basilar atelectasis are demonstrated, with small left pleural effusion. No pneumothorax. IMPRESSION: Various lines and tubes are appropriately positioned. Central pulmonary vascular engorgement and mild basilar atelectasis are demonstrated, with small left pleural effusion. No pneumothorax. at 1808 Reported and signed by: Cedrick Brandt MD CC: Case Castellanos MD Technologist: Sugar Anders, RT(R) Transcrpt Date/Tm/Trnsp: 02/03/2020 (1808) [email or web address] [facility] NAME: AKILAH ANDRES [id number] PHYS: [place] [address] : 1955 AGE: 64 SEX: M LOC: [id number].[id number] A PHONE #: [phone] EXAM DATE: 02/03/2020 STATUS: ADM IN FAX #: [phone] RADIOLOGY NO: PAGE 1 Signed ReportBASIC METABOLIC [id number] 17:14:00 Test Item Value Reference Range Interpretation Comments SODIUM (test code = 142 MMOL/L 137-145 N NA) POTASSIUM (test code = 4.3 MMOL/L 3.5-5.1 N K) CHLORIDE (test code = 105 MMOL/L 98-107 N CL) CARBON DIOXIDE (test 29 MMOL/L 22-30 N code = CO2) GLUCOSE (test code = 225 MG/DL 74-106 H GLU) BLOOD UREA NITROGEN 26 MG/DL 9-20 H (test code = BUN) GLOMERULAR FILTRATION > 60 Report ing units: RATE (test code = GFR) ml/mi n/1.73 m2 (Modified MDRD Formula)Referen ce Range: > or = 6 0 ml/min/1.73 m2 CREATININE (test code 1.20 MG/DL 0.66-1.25 N = CREAT) CALCIUM (test code = 8.6 MG/DL 8.4-10.2 N CA) [id number] 17:14:00 Test Item Value Reference Range Interpretation Comments MAGNESIUM (test code = MAG) 2.7 MG/DL 1.6-2.3 H BASIC METABOLIC [id number] 17:11:00 Test Item Value Reference Range Interpretation Comments SODIUM (test code = 142 MMOL/L 137-145 N NA) POTASSIUM (test code = 4.3 MMOL/L 3.5-5.1 N K) CHLORIDE (test code = 105 MMOL/L 98-107 N CL) CARBON DIOXIDE (test 29 MMOL/L 22-30 N code = CO2) GLUCOSE (test code = MG/DL 74-106 GLU) BLOOD UREA NITROGEN 26 MG/DL 9-20 H (test code = BUN) GLOMERULAR FILTRATION > 60 Report ing units: RATE (test code = GFR) ml/mi n/1.73 m2 (Modified MDRD Formula)Referen ce Range: > or = 6 0 ml/min/1.73 m2 CREATININE (test code 1.20 MG/DL 0.66-1.25 N = CREAT) CALCIUM (test code = MG/DL 8.7-9.7 CA) [id number] 17:11:00 Test Item Value Reference Range Interpretation Comments MAGNESIUM (test code = MAG) MG/DL 1.6-2.3 BASIC METABOLIC [id number] 17:08:00 Test Item Value Reference Range Interpretation Comments SODIUM (test code = NA) 142 MMOL/L 137-145 N POTASSIUM (test code = K) 4.3 MMOL/L 3.5-5.1 N CHLORIDE (test code = CL) 105 MMOL/L 98-107 N CARBON DIOXIDE (test code = CO2) MMOL/L 22-30 GLUCOSE (test code = GLU) MG/DL 74-106 BLOOD UREA NITROGEN (test code = MG/DL 9-20 BUN) GLOMERULAR FILTRATION RATE (test code = GFR) CREATININE (test code = CREAT) MG/DL 0.66-1.25 CALCIUM (test code = CA) MG/DL 8.7-9.7 [id number] 17:08:00 Test Item Value Reference Range Interpretation Comments MAGNESIUM (test code = MAG) MG/DL 1.6-2.3 PROTHROMBIN [id number] 17:05:00 Test Item Value Reference Range Interpretation Comments PROTHROMBIN TIME 15.8 SECONDS 9.4-12.5 H PATIENT (test code = PTP) INTERNATIONAL NORMAL 1.4 The INR is to be RATIO (test code = used only for INR) monitoring oral anticoagulantth erap y. INDICATION I NR VALUE ---- ---- ---- -------1. Prophylaxis, de ep venous thrombos is, including hig h risk surgery. 2.0 - 3.0 2. Prophylaxis, de ep venous thrombos is, hip surgery, treatment for d eep venous thrombosis or pulmonary prevention of systemic emboli sm in patients wit h valvular heart disease, atrial fibrillation, tissue heart va lve, or acute myocar dial infarction. 2.0 - 3 .0 3. Mechanical prosthesis hear t valves, recurrent syste agustin embolism. 3.0 - 4.5 PTT [id number] 17:05:00 Test Item Value Reference Range Interpretation Comments PTT ACTIVATED (test code = APTT) 28.8 SECONDS 25.1-36.5 N CBC W/AUTO [id number] 16:58:00 Test Item Value Reference Range Interpretation Comments WHITE BLOOD CELL (test code = 12.9 K/MM3 3.8-9.8 H WBC) RED BLOOD CELL (test code = 2.87 M/MM3 3.95-5.67 L RBC) HEMOGLOBIN (test code = HGB) 8.8 G/DL 12.4-16.7 L HEMATOCRIT (test code = HCT) 25.7 % 35.9-49.5 L MEAN CELL VOLUME (test code = 90 fL 81.7-96.1 N MCV) MEAN CELL HGB (test code = MCH) 30.7 pg 27.6-33.2 N MEAN CELL HGB CONCETRATION 34.2 % 32.9-35.5 N (test code = MCHC) RED CELL DISTRIBUTION WIDTH 12.8 % 12.1-15.2 N (test code = RDW) PLATELET COUNT (test code = 147 K/MM3 129-368 N PLT) MEAN PLATELET VOLUME (test code 9.0 fl 7.4-10.4 N = MPV) NEUTROPHIL % (test code = NT%) 86.8 % 43-75 H IMMATURE GRANULOCYTE % (test 0.7 % 0.0-2.0 N code = IG%) LYMPHOCYTE % (test code = LY%) 7.5 % 14-44 L MONOCYTE % (test code = MO%) 4.4 % 4-13 N EOSINOPHIL % (test code = EO%) 0.3 % 0-6 N BASOPHIL % (test code = BA%) 0.3 % 0-2 N NUCLEATED RBC % (test code = 0.0 % 0-1.0 N NRBC%) NEUTROPHIL # (test code = NT#) 11.15 K/mm3 2.0-7.6 H IMMATURE GRANULOCYTE # (test 0.09 x10 3/uL 0-0.03 H code = IG#) LYMPHOCYTE # (test code = LY#) 0.97 K/mm3 1.0-3.8 L MONOCYTE # (test code = MO#) 0.56 K/mm3 0.1-0.8 N EOSINOPHIL # (test code = EO#) 0.04 K/mm3 0.0-0.2 N BASOPHIL # (test code = BA#) 0.04 K/mm3 0.0-0.2 N NUCLEATED RBC # (test code = 0.00 K/mm3 0.0-0.1 N NRBC#) ARTERIAL BLOOD [id number] 16:54:00 Test Item Value Reference Range Interpretation Comments ARTERIAL BLOOD GAS PH (test code 7.34 mmHg 7.35-7.45 L = PHA) ARTERIAL BLOOD GAS PCO2 (test 41.1 mmHg 35.0-45.0 N code = PCO2A) ARTERIAL BLOOD GAS PO2 (test 172.9 mmol/L 80.0-100.0 H code = PO2A) BICARBONATE TOTAL HCO3 (test 21.6 mmol/L 20.0-26.0 N code = HCO3) BASE EXCESS (test code = CODEY) -3.9 mmol/L -3.0-3.0 L ABG O2 SATURATION (test code = 99.1 % 95.0-100.0 N SATA) ABG DELIVERY (test code = ZEB) VENT ABG VENT MODE (test code = A/C MODEA) ABG VENT RESP RATE (test code = 12.0 /MIN RRA) ABG TIDAL VOLUME (test code = 500 ml TVA) ABG PEEP (test code = PEEPA) 5.0 cmH2O ABG TEMPERATURE (test code = 37.0 C >37 TEMPA) ABG SITE (test code = SITEA) AL ALLENS TEST (test code = ALLENS) NA CHECK FIO2 (test code = COHBGFFIO2) 100 % GLUCOSE BEDSIDE [id number] 16:50:00 Test Item Value Reference Range Interpretation Comments GLUCOSE BEDSIDE TESTING (test code 198 MG/DL 60-99 H = GLUBED) BASIC METABOLIC [id number] 15:44:00 Test Item Value Reference Range Interpretation Comments SODIUM (test code = 137 MMOL/L 137-145 N NA) POTASSIUM (test code = 4.6 MMOL/L 3.5-5.1 N K) CHLORIDE (test code = 107 MMOL/L 98-107 N CL) CARBON DIOXIDE (test 24 MMOL/L 22-30 N code = CO2) GLUCOSE (test code = 263 MG/DL 74-106 H GLU) BLOOD UREA NITROGEN 27 MG/DL 9-20 H (test code = BUN) GLOMERULAR FILTRATION > 60 Report ing units: RATE (test code = GFR) ml/mi n/1.73 m2 (Modified MDRD Formula)Referen ce Range: > or = 6 0 ml/min/1.73 m2 CREATININE (test code 1.10 MG/DL 0.66-1.25 N = CREAT) CALCIUM (test code = 9.1 MG/DL 8.4-10.2 CA) BASIC METABOLIC [id number] 15:42:00 Test Item Value Reference Range Interpretation Comments SODIUM (test code = 137 MMOL/L 137-145 N NA) POTASSIUM (test code = 4.6 MMOL/L 3.5-5.1 N K) CHLORIDE (test code = 107 MMOL/L 98-107 N CL) CARBON DIOXIDE (test 24 MMOL/L 22-30 N code = CO2) GLUCOSE (test code = MG/DL 74-106 GLU) BLOOD UREA NITROGEN 27 MG/DL 9-20 H (test code = BUN) GLOMERULAR FILTRATION > 60 Report ing units: RATE (test code = GFR) ml/mi n/1.73 m2 (Modified MDRD Formula)Referen ce Range: > or = 6 0 ml/min/1.73 m2 CREATININE (test code 1.10 MG/DL 0.66-1.25 N = CREAT) CALCIUM (test code = MG/DL 8.7-9.7 CA) PROTHROMBIN [id number] 15:40:00 Test Item Value Reference Range Interpretation Comments PROTHROMBIN TIME 15.6 SECONDS 9.4-12.5 H PATIENT (test code = PTP) INTERNATIONAL NORMAL 1.4 The INR is to be RATIO (test code = used only for INR) monitoring oral anticoagulantth erap y. INDICATION I NR VALUE ---- ---- ---- -------1. Prophylaxis, de ep venous thrombos is, including hig h risk surgery. 2.0 - 3.0 2. Prophylaxis, de ep venous thrombos is, hip surgery, treatment for d eep venous thrombosis or pulmonary prevention of systemic emboli sm in patients wit h valvular heart disease, atrial fibrillation, tissue heart va lve, or acute myocar dial infarction. 2.0 - 3 .0 3. Mechanical prosthesis hear t valves, recurrent syste agustin embolism. 3.0 - 4.5 PTT [id number] 15:40:00 Test Item Value Reference Range Interpretation Comments PTT ACTIVATED (test code = APTT) 27.0 SECONDS 25.1-36.5 N BASIC METABOLIC [id number] 15:39:00 Test Item Value Reference Range Interpretation Comments SODIUM (test code = NA) MMOL/L 137-145 POTASSIUM (test code = K) MMOL/L 3.5-5.1 CHLORIDE (test code = CL) 107 MMOL/L 98-107 N CARBON DIOXIDE (test code = CO2) MMOL/L 22-30 GLUCOSE (test code = GLU) MG/DL 74-106 BLOOD UREA NITROGEN (test code = MG/DL 9-20 BUN) GLOMERULAR FILTRATION RATE (test code = GFR) CREATININE (test code = CREAT) MG/DL 0.66-1.25 CALCIUM (test code = CA) MG/DL 8.7-9.7 BASIC METABOLIC [id number] 15:39:00 Test Item Value Reference Range Interpretation Comments SODIUM (test code = NA) 137 MMOL/L 137-145 N POTASSIUM (test code = K) MMOL/L 3.5-5.1 CHLORIDE (test code = CL) 107 MMOL/L 98-107 N CARBON DIOXIDE (test code = CO2) MMOL/L 22-30 GLUCOSE (test code = GLU) MG/DL 74-106 BLOOD UREA NITROGEN (test code = MG/DL 9-20 BUN) GLOMERULAR FILTRATION RATE (test code = GFR) CREATININE (test code = CREAT) MG/DL 0.66-1.25 CALCIUM (test code = CA) MG/DL 8.7-9.7 BASIC METABOLIC [id number] 15:39:00 Test Item Value Reference Range Interpretation Comments SODIUM (test code = NA) 137 MMOL/L 137-145 N POTASSIUM (test code = K) 4.6 MMOL/L 3.5-5.1 N CHLORIDE (test code = CL) 107 MMOL/L 98-107 N CARBON DIOXIDE (test code = CO2) MMOL/L 22-30 GLUCOSE (test code = GLU) MG/DL 74-106 BLOOD UREA NITROGEN (test code = MG/DL 9-20 BUN) GLOMERULAR FILTRATION RATE (test code = GFR) CREATININE (test code = CREAT) MG/DL 0.66-1.25 CALCIUM (test code = CA) MG/DL 8.7-9.7 CBC W/AUTO [id number] 15:33:00 Test Item Value Reference Range Interpretation Comments WHITE BLOOD CELL (test code = 17.2 K/MM3 3.8-9.8 H WBC) RED BLOOD CELL (test code = 3.34 M/MM3 3.95-5.67 L RBC) HEMOGLOBIN (test code = HGB) 10.3 G/DL 12.4-16.7 L HEMATOCRIT (test code = HCT) 29.8 % 35.9-49.5 L MEAN CELL VOLUME (test code = 89 fL 81.7-96.1 N MCV) MEAN CELL HGB (test code = MCH) 30.8 pg 27.6-33.2 N MEAN CELL HGB CONCETRATION 34.6 % 32.9-35.5 N (test code = MCHC) RED CELL DISTRIBUTION WIDTH 12.7 % 12.1-15.2 N (test code = RDW) PLATELET COUNT (test code = 158 K/MM3 129-368 PLT) MEAN PLATELET VOLUME (test code 9.6 fl 7.4-10.4 N = MPV) NEUTROPHIL % (test code = NT%) 82.3 % 43-75 H IMMATURE GRANULOCYTE % (test 1.0 % 0.0-2.0 N code = IG%) LYMPHOCYTE % (test code = LY%) 13.2 % 14-44 L MONOCYTE % (test code = MO%) 2.4 % 4-13 L EOSINOPHIL % (test code = EO%) 0.8 % 0-6 N BASOPHIL % (test code = BA%) 0.3 % 0-2 N NUCLEATED RBC % (test code = 0.0 % 0-1.0 N NRBC%) NEUTROPHIL # (test code = NT#) 14.14 K/mm3 2.0-7.6 H IMMATURE GRANULOCYTE # (test 0.18 x10 3/uL 0-0.03 H code = IG#) LYMPHOCYTE # (test code = LY#) 2.28 K/mm3 1.0-3.8 N MONOCYTE # (test code = MO#) 0.42 K/mm3 0.1-0.8 N EOSINOPHIL # (test code = EO#) 0.14 K/mm3 0.0-0.2 N BASOPHIL # (test code = BA#) 0.06 K/mm3 0.0-0.2 N NUCLEATED RBC # (test code = 0.00 K/mm3 0.0-0.1 N NRBC#) BASIC METABOLIC [id number] 14:44:00 Test Item Value Reference Range Interpretation Comments SODIUM (test code = 137 MMOL/L 137-145 N NA) POTASSIUM (test code = 5.6 MMOL/L 3.5-5.1 H K) CHLORIDE (test code = 107 MMOL/L 98-107 N CL) CARBON DIOXIDE (test 21 MMOL/L 22-30 L code = CO2) ANION GAP (test code = 15 MMOL/L 14-24 N GAP) GLUCOSE (test code = 300 MG/DL 74-106 HH CALLED TO ROBBIN.D& GLU) READBACK ON 05/19 AT 1443 BY Delmar Moreno BLOOD UREA NITROGEN 30 MG/DL 9-20 H (test code = BUN) GLOMERULAR FILTRATION > 60 Report ing units: RATE (test code = GFR) ml/mi n/1.73 m2 (Modified MDRD Formula)Referen ce Range: > or = 6 0 ml/min/1.73 m2 CREATININE (test code 1.20 MG/DL 0.66-1.25 = CREAT) CALCIUM (test code = 7.1 MG/DL 8.4-10.2 L CA) OR 5BASIC METABOLIC [id number] 14:40:00 Test Item Value Reference Range Interpretation Comments SODIUM (test code = NA) 137 MMOL/L 137-145 N POTASSIUM (test code = K) 5.6 MMOL/L 3.5-5.1 H CHLORIDE (test code = CL) 107 MMOL/L 98-107 N CARBON DIOXIDE (test code = CO2) MMOL/L 22-30 GLUCOSE (test code = GLU) MG/DL 74-106 BLOOD UREA NITROGEN (test code = MG/DL 9-20 BUN) GLOMERULAR FILTRATION RATE (test code = GFR) CREATININE (test code = CREAT) MG/DL 0.66-1.25 CALCIUM (test code = CA) MG/DL 8.7-9.7 OR 5BASIC METABOLIC [id number] 14:39:00 Test Item Value Reference Range Interpretation Comments SODIUM (test code = NA) MMOL/L 137-145 POTASSIUM (test code = K) MMOL/L 3.5-5.1 CHLORIDE (test code = CL) 107 MMOL/L 98-107 N CARBON DIOXIDE (test code = CO2) MMOL/L 22-30 GLUCOSE (test code = GLU) MG/DL 74-106 BLOOD UREA NITROGEN (test code = MG/DL 9-20 BUN) GLOMERULAR FILTRATION RATE (test code = GFR) CREATININE (test code = CREAT) MG/DL 0.66-1.25 CALCIUM (test code = CA) MG/DL 8.7-9.7 OR 5CBC W/AUTO [id number] 14:23:00 Test Item Value Reference Range Interpretation Comments WHITE BLOOD CELL (test code = 11.0 K/MM3 3.8-9.8 H WBC) RED BLOOD CELL (test code = 2.90 M/MM3 3.95-5.67 L RBC) HEMOGLOBIN (test code = HGB) 8.8 G/DL 12.4-16.7 L HEMATOCRIT (test code = HCT) 26.0 % 35.9-49.5 L MEAN CELL VOLUME (test code = 90 fL 81.7-96.1 N MCV) MEAN CELL HGB (test code = MCH) 30.3 pg 27.6-33.2 N MEAN CELL HGB CONCETRATION 33.8 % 32.9-35.5 N (test code = MCHC) RED CELL DISTRIBUTION WIDTH 12.8 % 12.1-15.2 N (test code = RDW) PLATELET COUNT (test code = 214 K/MM3 129-368 N PLT) MEAN PLATELET VOLUME (test code 9.5 fl 7.4-10.4 N = MPV) NEUTROPHIL % (test code = NT%) 76.1 % 43-75 H IMMATURE GRANULOCYTE % (test 0.8 % 0.0-2.0 N code = IG%) LYMPHOCYTE % (test code = LY%) 16.9 % 14-44 N MONOCYTE % (test code = MO%) 4.2 % 4-13 N EOSINOPHIL % (test code = EO%) 1.5 % 0-6 N BASOPHIL % (test code = BA%) 0.5 % 0-2 N NUCLEATED RBC % (test code = 0.0 % 0-1.0 N NRBC%) NEUTROPHIL # (test code = NT#) 8.35 K/mm3 2.0-7.6 H IMMATURE GRANULOCYTE # (test 0.09 x10 3/uL 0-0.03 H code = IG#) LYMPHOCYTE # (test code = LY#) 1.85 K/mm3 1.0-3.8 N MONOCYTE # (test code = MO#) 0.46 K/mm3 0.1-0.8 N EOSINOPHIL # (test code = EO#) 0.17 K/mm3 0.0-0.2 N BASOPHIL # (test code = BA#) 0.05 K/mm3 0.0-0.2 N NUCLEATED RBC # (test code = 0.00 K/mm3 0.0-0.1 N NRBC#) OR [id number] 12:48:00 Test Item Value Reference Range Interpretation Comments POTASSIUM (test code = K) 4.6 MMOL/L 3.5-5.1 N CALL RESULTS TO EXT 8482 [id number] 12:48:00 Test Item Value Reference Range Interpretation Comments GLUCOSE (test code = 334 MG/DL 74-106 HH CALLED TO ROBBIN.D& GLU) READBACK ON 05/19 AT 1248 BY Delmar Moreno CALL RESULTS TO EXT 8482 [id number] 12:41:00 Test Item Value Reference Range Interpretation Comments POTASSIUM (test code = K) 4.6 MMOL/L 3.5-5.1 N CALL RESULTS TO EXT 8482 [id number] 12:41:00 Test Item Value Reference Range Interpretation Comments GLUCOSE (test code = GLU) MG/DL 74-106 CALL RESULTS TO EXT 8482 HGB [id number] 12:27:00 Test Item Value Reference Range Interpretation Comments HEMOGLOBIN (test code = HGB) 11.5 G/DL 12.4-16.7 L HEMATOCRIT (test code = HCT) 32.1 % 35.9-49.5 L CBC W/AUTO [id number] 10:47:00 Test Item Value Reference Range Interpretation Comments WHITE BLOOD CELL (test code = 7.6 K/MM3 3.8-9.8 N WBC) RED BLOOD CELL (test code = 3.83 M/MM3 3.95-5.67 L RBC) HEMOGLOBIN (test code = HGB) 11.7 G/DL 12.4-16.7 L HEMATOCRIT (test code = HCT) 34.0 % 35.9-49.5 L MEAN CELL VOLUME (test code = 89 fL 81.7-96.1 N MCV) MEAN CELL HGB (test code = MCH) 30.5 pg 27.6-33.2 N MEAN CELL HGB CONCETRATION 34.4 % 32.9-35.5 N (test code = MCHC) RED CELL DISTRIBUTION WIDTH 12.7 % 12.1-15.2 N (test code = RDW) PLATELET COUNT (test code = 223 K/MM3 129-368 PLT) MEAN PLATELET VOLUME (test code 9.3 fl 7.4-10.4 N = MPV) NEUTROPHIL % (test code = NT%) 58.2 % 43-75 N IMMATURE GRANULOCYTE % (test 0.5 % 0.0-2.0 N code = IG%) LYMPHOCYTE % (test code = LY%) 29.5 % 14-44 N MONOCYTE % (test code = MO%) 8.5 % 4-13 N EOSINOPHIL % (test code = EO%) 2.8 % 0-6 N BASOPHIL % (test code = BA%) 0.5 % 0-2 N NUCLEATED RBC % (test code = 0.0 % 0-1.0 N NRBC%) NEUTROPHIL # (test code = NT#) 4.43 K/mm3 2.0-7.6 N IMMATURE GRANULOCYTE # (test 0.04 x10 3/uL 0-0.03 H code = IG#) LYMPHOCYTE # (test code = LY#) 2.25 K/mm3 1.0-3.8 N MONOCYTE # (test code = MO#) 0.65 K/mm3 0.1-0.8 N EOSINOPHIL # (test code = EO#) 0.21 K/mm3 0.0-0.2 H BASOPHIL # (test code = BA#) 0.04 K/mm3 0.0-0.2 N NUCLEATED RBC # (test code = 0.00 K/mm3 0.0-0.1 N NRBC#) CALL *[id number] METABOLIC [id number] 10:47:00 Test Item Value Reference Range Interpretation Comments SODIUM (test code = 136 MMOL/L 137-145 L NA) POTASSIUM (test code = 4.4 MMOL/L 3.5-5.1 N K) CHLORIDE (test code = 103 MMOL/L 98-107 N CL) CARBON DIOXIDE (test 23 MMOL/L 22-30 N code = CO2) ANION GAP (test code = 14 MMOL/L 14-24 N GAP) GLUCOSE (test code = 266 MG/DL 74-106 H GLU) BLOOD UREA NITROGEN 37 MG/DL 9-20 H (test code = BUN) GLOMERULAR FILTRATION 47 Report ing units: RATE (test code = GFR) ml/mi n/1.73 m2 (Modified MDRD Formula)Referen ce Range: > or = 6 0 ml/min/1.73 m2 CREATININE (test code 1.50 MG/DL 0.66-1.25 H = CREAT) CALCIUM (test code = 8.5 MG/DL 8.4-10.2 N CA) GLUCOSE BEDSIDE [id number] 09:17:00 Test Item Value Reference Range Interpretation Comments GLUCOSE BEDSIDE TESTING (test code 279 MG/DL 60-99 H = GLUBED) BASIC METABOLIC [id number] 08:14:00 Test Item Value Reference Range Interpretation Comments SODIUM (test code = 136 MMOL/L 137-145 L NA) POTASSIUM (test code = 4.5 MMOL/L 3.5-5.1 N K) CHLORIDE (test code = 101 MMOL/L 98-107 N CL) CARBON DIOXIDE (test 22 MMOL/L 22-30 N code = CO2) ANION GAP (test code = 18 MMOL/L 14-24 N GAP) GLUCOSE (test code = 339 MG/DL 74-106 HH CALLED TO GERARDO.L& GLU) READBACK ON 05/19 AT 0814 BY Delmar Moreno BLOOD UREA NITROGEN 40 MG/DL 9-20 H (test code = BUN) GLOMERULAR FILTRATION 38 Report ing units: RATE (test code = GFR) ml/mi n/1.73 m2 (Modified MDRD Formula)Referen ce Range: > or = 6 0 ml/min/1.73 m2 CREATININE (test code 1.80 MG/DL 0.66-1.25 H = CREAT) CALCIUM (test code = 9.5 MG/DL 8.4-10.2 N CA) ARTERIAL BLOOD [id number] 08:08:00 Test Item Value Reference Range Interpretation Comments ARTERIAL BLOOD GAS PH (test code 7.41 mmHg 7.35-7.45 N = PHA) ARTERIAL BLOOD GAS PCO2 (test 33.3 mmHg 35.0-45.0 L code = PCO2A) ARTERIAL BLOOD GAS PO2 (test code 85.5 mmol/L 80.0-100.0 N = PO2A) BICARBONATE TOTAL HCO3 (test code 20.5 mmol/L 20.0-26.0 N = HCO3) BASE EXCESS (test code = CODEY) -3.2 mmol/L -3.0-3.0 L ABG O2 SATURATION (test code = 96.6 % 95.0-100.0 N SATA) ABG DELIVERY (test code = ZEB) RM AIR ABG TEMPERATURE (test code = 37.0 C >37 TEMPA) ABG SITE (test code = SITEA) AL ALLENS TEST (test code = ALLENS) N CHECK FIO2 (test code = COHBGFFIO2) 21 % BASIC METABOLIC [id number] 08:01:00 Test Item Value Reference Range Interpretation Comments SODIUM (test code = 136 MMOL/L 137-145 L NA) POTASSIUM (test code = 4.5 MMOL/L 3.5-5.1 N K) CHLORIDE (test code = 101 MMOL/L 98-107 N CL) CARBON DIOXIDE (test MMOL/L 22-30 code = CO2) GLUCOSE (test code = MG/DL 74-106 GLU) BLOOD UREA NITROGEN MG/DL 9-20 (test code = BUN) GLOMERULAR FILTRATION 38 Report ing units: RATE (test code = GFR) ml/mi n/1.73 m2 (Modified MDRD Formula)Referen ce Range: > or = 6 0 ml/min/1.73 m2 CREATININE (test code 1.80 MG/DL 0.66-1.25 H = CREAT) CALCIUM (test code = MG/DL 8.7-9.7 CA) BASIC METABOLIC [id number] 07:59:00 Test Item Value Reference Range Interpretation Comments SODIUM (test code = NA) 136 MMOL/L 137-145 L POTASSIUM (test code = K) 4.5 MMOL/L 3.5-5.1 N CHLORIDE (test code = CL) 101 MMOL/L 98-107 N CARBON DIOXIDE (test code = CO2) MMOL/L 22-30 GLUCOSE (test code = GLU) MG/DL 74-106 BLOOD UREA NITROGEN (test code = MG/DL 9-20 BUN) GLOMERULAR FILTRATION RATE (test code = GFR) CREATININE (test code = CREAT) MG/DL 0.66-1.25 CALCIUM (test code = CA) MG/DL 8.7-9.7 BASIC METABOLIC [id number] 07:58:00 Test Item Value Reference Range Interpretation Comments SODIUM (test code = NA) MMOL/L 137-145 POTASSIUM (test code = K) MMOL/L 3.5-5.1 CHLORIDE (test code = CL) 101 MMOL/L 98-107 N CARBON DIOXIDE (test code = CO2) MMOL/L 22-30 GLUCOSE (test code = GLU) MG/DL 74-106 BLOOD UREA NITROGEN (test code = MG/DL 9-20 BUN) GLOMERULAR FILTRATION RATE (test code = GFR) CREATININE (test code = CREAT) MG/DL 0.66-1.25 CALCIUM (test code = CA) MG/DL 8.7-9.7 GLYCOSYLATED HEMOGLOBIN [id number] 17:47:00 Test Item Value Reference Range Interpretation Comments GLYCOSYLATED 9.3 % 4.8-5.9 H Any condition t hat HEMOGLOBIN (HA1C) shortens e rythocyte (test code = survival or dec reasesmean GLYHGB) erythrocyte age (e.g., recovery from a cute blood loss,hemolytic anemia) will falsely lo wer HGBA1c resultsregardle ss of the method used. H GBA1c results from makayla katz HbSS, HbCC, and HbSc must be interpreted with cautiongiven th e pathological pr ocesses, including anemia,increase d red cell turnover, trans fusion requirements, thatadversely i mpact HGBA1c as a mar ker of long-term glycemiccontrol . Alternative for ms of testing such as fructosaminesho uld be considered for these patients. MEAN BLOOD GLUCOSE 220 MG/DL 70-110 H (test code = MBG) HIV 12 AB [id number] 17:35:00 Test Item Value Reference Range Interpretation Comments HIV 1 2 COMBO AG/AB SCREEN AB/AG NON REACTIVE NONREACTIVE (test code = [id number]) - CT CHEST W/O [id number] 17:16:00 Patient Name: AKILAH ANDRES Unit No: [id number] EXAMS: CPT CODE: [id number] CT CHEST W/O CONTRAST 11933 EXAM: - CT CHEST W/O CONTRAST HISTORY: CAD Location code:B2 TECHNIQUE: Axial tomograms through the chest were obtained without intravenous contrast. Coronal and sagittal reformatted images are provided. Automated exposure reduction (Auto mA/Smart mA) was utilized in compliance with ACR Image [employer] with DLP of 535 mGy-cm. COMPARISON: Same day chest radiograph. FINDINGS: LUNGS: 5 mm nodule present in the right upper lobe (image 27, series 4) near the fissure, either pulmonary nodule or interfissural node. No other focal pulmonary nodules or masses seen. No focal consolidation. PLEURA: No pleural effusion or pneumothorax. CARDIAC: Normal cardiac size. No pericardial effusion. Severe, triple-vessel coronary artery calcifications and/or stents are present, most pronounced along the LAD. Scattered mitral and aortic valve calcifications are also present. VASCULATURE: Vascular calcifications involve theaortic arch without thoracic aortic aneurysm. TRACHEOBRONCHIAL TREE: The trach ea and lobar bronchi are unremarkable. LYMPHATICS: There is no gross adenopathy accounting for lack of intravenous contrast. VISUALIZED ABDOMEN: Diffuse hepatic steatosis. Small hiatal hernia. Otherwise, the visualized upper abdominal organs are unremarkable BONES: No acute osseous findings. Multilevel degenerative changes of the spine. No destructive osseous lesion. SOFT TISSUES: Median sternotomy wires noted along the anterior chest wall IMPRESSION: 1. Status post prior CABG with marked triple- vessel calcifications and/or stents present. The heart is normal in size. There is no pericardial effusion. 2. 5 mm right upper lobe pulmonary nodule or prominent fissural node. Fleischner Criteria for Pulmonary Nodule Follow-up "Guidelines for Management of Incidental Pulmonary Nodules Detected on [facility] NAME: AKILAH ANDRES [id number] PHYS: [place] [address] : 1955 AGE: 64 SEX: M [facility] [id number] LOC: Z.NVL PHONE #: [phone] EXAM DATE: 02/02/2020 STATUS: REG CLI FAX #: [phone] RAD #: D/C DT PAGE 1 Signed Report (CONTINUED) Patient Name: AKILAH ANDRES Unit No: [id number] EXAMS: CPT CODE: [id number] CT CHEST W/O CONTRAST 15117 <Continued> CT Images: From the Fleischner Society 2017." Radiology 2017. Note: Low Risk Patient: minimal or absent history of smoking and/or other risk factors High Risk Patient: history of smoking or of other known risk factors (e.g. first degree relative with lung cancer, or exposure to asbestos, radon, uranium) Low Risk No follow-up needed. High Risk Optional CT at 12 months Part solid < 6mm No routine follow up at 1716 Reported and signed by: Mechelle Geronimo MD CC: Technologist: Virginie CC STUDENT ; Haroldo RITCHIE CTDI: DLP: Trnscrpt: 02/02/2020 (171) [email or web address] [facility] [place] NAME: AKILAH ANDRES [id number] PHYS: Tarun Prasad MD [place] [id number] : 1955 AGE: 64 SEX: M LOC: [employer] PHONE #: [phone] EXAM DATE: 02/02/2020 STATUS: REG CLI FAX#: [phone] RAD #: D/C DT PAGE 2Signed Report Patient Name: AKILAH ANDRES Unit No: [id number] EXAMS: CPT CODE: [id number] CT CHEST W/O CONTRAST 54839 <Continued> Orig Print D/T: S: 02/02/2020 (1718) [facility] [place] NAME: AKILAH ANDRES [address] PHYS: Tarun Prasad MD [place] [id number] : 1955 AGE: 64 SEX: M LOC: [employer] PHONE #: [phone] EXAM DATE: 02/02/2020 STATUS: REG CLI FAX #: [phone] RAD #: D/C DT PAGE 3 Signed Report PROTHROMBIN [id number] 16:33:00 Test Item Value Reference Range Interpretation Comments PROTHROMBIN TIME 12.2 SECONDS 9.4-12.5 N PATIENT (test code = PTP) INTERNATIONAL NORMAL 1.1 The INR is to be RATIO (test code = used only for INR) monitoring oral anticoagulantth erap y. INDICATION I NR VALUE ---- ---- ---- -------1. Prophylaxis, de ep venous thrombos is, including hig h risk surgery. 2.0 - 3.0 2. Prophylaxis, de ep venous thrombos is, hip surgery, treatment for d eep venous thrombosis or pulmonary prevention of systemic emboli sm in patients wit h valvular heart disease, atrial fibrillation, tissue heart va lve, or acute myocar dial infarction. 2.0 - 3 .0 3. Mechanical prosthesis hear t valves, recurrent syste agustin embolism. 3.0 - 4.5 IS PATIENT ON ANTICOAGULANTS: YLIST ANTICOAGULANTS: PlavixPTT ACTIVATED 2020-02-02 16:33:00 Test Item Value Reference Range Interpretation Comments PTT ACTIVATED (test code = APTT) 31.5 SECONDS 25.1-36.5 N IS PATIENT ON ANTICOAGULANTS: YLIST ANTICOAGULANTS: PlavixPLT RESPONSE TO PLAVIX 2020-02-02 16:33:00 Test Item Value Reference Range Interpretation Comments PLT RESPONSE TO 229 PRU 194-418 N P2Y12 Result s PLAVIX (test code = Interpre tation: Test PLAVRES) results are in P2Y12 Reaction Units (PRU). Pre-Drug Refe rence Range is 194-41 8. Pre-drug platel et function estima lilian the total possible platelet aggregation independent of P2Y12 inhibitor drugs . Values <194 cou ld be due to low HCT, low platelet count, or p resence of IIb/IIIa inhibi tors. Post-Drug Resu lts: Lower PRU levels are associated with expec aguila antiplatelet ef fect. Values may be b elow the stated refe rence range. Studies show that patients wi th <230 PRU had fewer a dverse events. IS PATIENT ON ANTICOAGULANTS: YLIST ANTICOAGULANTS: PlavixCOMPREHENSIVE METABOLIC [id number] 16:32:00 Test Item Value Reference Range Interpretation Comments SODIUM (test code = NA) 136 MMOL/L 137-145 L POTASSIUM (test code = 5.5 MMOL/L 3.5-5.1 H K) CHLORIDE (test code = 101 MMOL/L 98-107 N CL) CARBON DIOXIDE (test 16 MMOL/L 22-30 L code = CO2) GLUCOSE (test code = 355 MG/DL 74-106 HH CALLED TO MAGALYS Siegel& GLU) READBACK ON 04/18 AT 1632 BY Garima Gomez BLOOD UREA NITROGEN 28 MG/DL 9-20 H (test code = BUN) GLOMERULAR FILTRATION 38 Report ing units: RATE (test code = GFR) ml/mi n/1.73 m2 (Modified MDRD Formula)Referen ce Range: > or = 6 0 ml/min/1.73 m2 CREATININE (test code = 1.80 MG/DL 0.66-1.25 H CREAT) TOTAL PROTEIN (test 9.2 G/DL 6.2-7.6 H code = PROT) ALBUMIN (test code = 4.6 G/DL 3.5-5.0 N ALB) CALCIUM (test code = 9.6 MG/DL 8.4-10.2 N CA) BILIRUBIN TOTAL (test 1.2 MG/DL 0.2-1.3 N code = BILT) SGOT/AST (test code = 70 UNITS/L 17-59 H AST) SGPT/ALT (test code = 51 UNITS/L <50 ALT) ALKALINE PHOSPHATASE 81 UNITS/L 38-126 N (test code = ALKP) COMPREHENSIVE METABOLIC [id number] 16:10:00 Test Item Value Reference Range Interpretation Comments SODIUM (test code = NA) 136 MMOL/L 137-145 L POTASSIUM (test code = 5.5 MMOL/L 3.5-5.1 H K) CHLORIDE (test code = 101 MMOL/L 98-107 N CL) CARBON DIOXIDE (test 16 MMOL/L 22-30 L code = CO2) GLUCOSE (test code = MG/DL 74-106 GLU) BLOOD UREA NITROGEN MG/DL 9-20 (test code = BUN) GLOMERULAR FILTRATION 38 Report ing units: RATE (test code = GFR) ml/mi n/1.73 m2 (Modified MDRD Formula)Referen ce Range: > or = 6 0 ml/min/1.73 m2 CREATININE (test code = 1.80 MG/DL 0.66-1.25 H CREAT) TOTAL PROTEIN (test 9.2 G/DL 6.2-7.6 H code = PROT) ALBUMIN (test code = 4.6 G/DL 3.5-5.0 N ALB) CALCIUM (test code = MG/DL 8.7-9.7 CA) BILIRUBIN TOTAL (test 1.2 MG/DL 0.2-1.3 N code = BILT) SGOT/AST (test code = 70 UNITS/L 17-59 H AST) SGPT/ALT (test code = UNITS/L <50 ALT) ALKALINE PHOSPHATASE UNITS/L 38-126 (test code = ALKP) - XR CHEST 2 [id number] 16:10:00 Patient Name: AKILAH ANDRES Unit No: [id number] EXAMS: CPT CODE: [id number] XR CHEST 2 V 94855 LOCATION: T18 EXAM: CHEST 2 VIEWS INDICATION: , SD EOP COMPARISON: None. TECHNIQUE: PA and lateral chest radiographs. FINDINGS: Lungs are clear bilaterally without effusion. Heart and mediastinum are normal in size and contour. Patient status post median sternotomy. Bones and peripheral soft tissues are unremarkable. IMPRESSION: Lungs are clear. No acute abnormality. at 1610 Reported and signed by: Dane Metzger MD CC: Case Castellanos MD Technologist: Socorro Page RT(R) Transcrpt Date/Tm/Trnsp: 02/02/2020(1610) [id number] Orig Print D/T: S: 02/02/2020 (1613) [facility] NAME: AKILAH ANDRES [id number] PHYS: [place] [address] : 1955 AGE: 64 SEX: M LOC: Z.SRG PHONE #: [phone] EXAM DATE: 02/02/2020 STATUS: PRE [facility] [place] #: [phone] RADIOLOGY NO: PAGE 1 Signed ReportPROTHROMBIN [id number] 16:09:00 Test Item Value Reference Range Interpretation Comments PROTHROMBIN TIME 12.2 SECONDS 9.4-12.5 N PATIENT (test code = PTP) INTERNATIONAL NORMAL 1.1 The INR is to be RATIO (test code = used only for INR) monitoring oral anticoagulantth erap y. INDICATION I NR VALUE ---- ---- ---- -------1. Prophylaxis, de ep venous thrombos is, including hig h risk surgery. 2.0 - 3.0 2. Prophylaxis, de ep venous thrombos is, hip surgery, treatment for d eep venous thrombosis or pulmonary prevention of systemic emboli sm in patients wit h valvular heart disease, atrial fibrillation, tissue heart va lve, or acute myocar dial infarction. 2.0 - 3 .0 3. Mechanical prosthesis hear t valves, recurrent syste agustin embolism. 3.0 - 4.5 IS PATIENT ON ANTICOAGULANTS: IST ANTICOAGULANTS: PlavixPTT ACTIVATED 2020-02-02 16:09:00 Test Item Value Reference Range Interpretation Comments PTT ACTIVATED (test code = APTT) 31.5 SECONDS 25.1-36.5 N IS PATIENT ON ANTICOAGULANTS: [facility] ANTICOAGULANTS: PlavixPLT RESPONSE TO PLAVIX 2020-02-02 16:09:00 Test Item Value Reference Range Interpretation Comments PLT RESPONSE TO PLAVIX (test code = PRU 194-418 PLAVRES) IS PATIENT ON ANTICOAGULANTS: IST ANTICOAGULANTS: PlavixCOMPREHENSIVE METABOLIC [id number] 16:08:00 Test Item Value Reference Range Interpretation Comments SODIUM (test code = NA) 136 MMOL/L 137-145 L POTASSIUM (test code = K) 5.5 MMOL/L 3.5-5.1 H CHLORIDE (test code = CL) 101 MMOL/L 98-107 N CARBON DIOXIDE (test code = CO2) MMOL/L 22-30 GLUCOSE (test code = GLU) MG/DL 74-106 BLOOD UREA NITROGEN (test code = MG/DL 9-20 BUN) GLOMERULAR FILTRATION RATE (test code = GFR) CREATININE (test code = CREAT) MG/DL 0.66-1.25 TOTAL PROTEIN (test code = PROT) G/DL 6.2-7.6 ALBUMIN (test code = ALB) 4.6 G/DL 3.5-5.0 N CALCIUM (test code = CA) MG/DL 8.7-9.7 BILIRUBIN TOTAL (test code = BILT) MG/DL 0.2-1.3 SGOT/AST (test code = AST) UNITS/L 15-37 SGPT/ALT (test code = ALT) UNITS/L <50 ALKALINE PHOSPHATASE (test code = UNITS/L 38-126 ALKP) COMPREHENSIVE METABOLIC [id number] 16:07:00 Test Item Value Reference Range Interpretation Comments SODIUM (test code = NA) MMOL/L 137-145 POTASSIUM (test code = K) MMOL/L 3.5-5.1 CHLORIDE (test code = CL) 101 MMOL/L 98-107 N CARBON DIOXIDE (test code = CO2) MMOL/L 22-30 GLUCOSE (test code = GLU) MG/DL 74-106 BLOOD UREA NITROGEN (test code = MG/DL 9-20 BUN) GLOMERULAR FILTRATION RATE (test code = GFR) CREATININE (test code = CREAT) MG/DL 0.66-1.25 TOTAL PROTEIN (test code = PROT) G/DL 6.2-7.6 ALBUMIN (test code = ALB) 4.6 G/DL 3.5-5.0 N CALCIUM (test code = CA) MG/DL 8.7-9.7 BILIRUBIN TOTAL (test code = BILT) MG/DL 0.2-1.3 SGOT/AST (test code = AST) UNITS/L 15-37 SGPT/ALT (test code = ALT) UNITS/L <50 ALKALINE PHOSPHATASE (test code = UNITS/L 38-126 ALKP) CBC W/AUTO [id number] 15:52:00 Test Item Value Reference Range Interpretation Comments WHITE BLOOD CELL (test code = 8.9 K/MM3 3.8-9.8 N WBC) RED BLOOD CELL (test code = 4.78 M/MM3 3.95-5.67 N RBC) HEMOGLOBIN (test code = HGB) 14.6 G/DL 12.4-16.7 N HEMATOCRIT (test code = HCT) 41.5 % 35.9-49.5 N MEAN CELL VOLUME (test code = 87 fL 81.7-96.1 N MCV) MEAN CELL HGB (test code = MCH) 30.5 pg 27.6-33.2 N MEAN CELL HGB CONCETRATION 35.2 % 32.9-35.5 N (test code = MCHC) RED CELL DISTRIBUTION WIDTH 12.8 % 12.1-15.2 N (test code = RDW) PLATELET COUNT (test code = 299 K/MM3 129-368 N PLT) MEAN PLATELET VOLUME (test code 9.2 fl 7.4-10.4 N = MPV) NEUTROPHIL % (test code = NT%) 68.1 % 43-75 N IMMATURE GRANULOCYTE % (test 0.8 % 0.0-2.0 N code = IG%) LYMPHOCYTE % (test code = LY%) 20.9 % 14-44 N MONOCYTE % (test code = MO%) 7.8 % 4-13 N EOSINOPHIL % (test code = EO%) 1.7 % 0-6 N BASOPHIL % (test code = BA%) 0.7 % 0-2 N NUCLEATED RBC % (test code = 0.0 % 0-1.0 N NRBC%) NEUTROPHIL # (test code = NT#) 6.04 K/mm3 2.0-7.6 N IMMATURE GRANULOCYTE # (test 0.07 x10 3/uL 0-0.03 H code = IG#) LYMPHOCYTE # (test code = LY#) 1.85 K/mm3 1.0-3.8 N MONOCYTE # (test code = MO#) 0.69 K/mm3 0.1-0.8 N EOSINOPHIL # (test code = EO#) 0.15 K/mm3 0.0-0.2 N BASOPHIL # (test code = BA#) 0.06 K/mm3 0.0-0.2 N NUCLEATED RBC # (test code = 0.00 K/mm3 0.0-0.1 N NRBC#) GLUCOSE BEDSIDE [id number] 10:33:00 Test Item Value Reference Range Interpretation Comments GLUCOSE BEDSIDE TESTING 330 MG/DL 60-99 Noti fied Physician~ (test code = GLUBED) BASIC METABOLIC [id number] 05:51:00 Test Item Value Reference Range Interpretation Comments SODIUM (test code = 138 MMOL/L 137-145 N NA) POTASSIUM (test code = 4.8 MMOL/L 3.5-5.1 N K) CHLORIDE (test code = 102 MMOL/L 98-107 N CL) CARBON DIOXIDE (test 25 MMOL/L 22-30 N code = CO2) ANION GAP (test code = 16 MMOL/L 14-24 N GAP) GLUCOSE (test code = 340 MG/DL 74-106 HH CALLED TO MARIANA Purdy.& READBACK ON 01/21/20 AT 054 2 BY Stuart Kim BLOOD UREA NITROGEN 26 MG/DL 9-20 H (test code = BUN) GLOMERULAR FILTRATION > 60 Report ing units: RATE (test code = GFR) ml/mi n/1.73 m2 (Modified MDRD Formula)Referen ce Range: > or = 6 0 ml/min/1.73 m2 CREATININE (test code 1.20 MG/DL 0.66-1.25 N = CREAT) CALCIUM (test code = 9.4 MG/DL 8.4-10.2 N CA) LIPID PROFILE (CORONARY RISK)2020-01-21 05:51:00 Test Item Value Reference Range Interpretation Comments TRIGLYCERIDES (test 321 MG/DL TRIGLYCE RIDES code = TRIG) REFERENCE RANGE:Normal: < 150 mg/dLBorderline High: 150-199 mg/dLHi gh: 200-499 mg/dLVe ry High: >=500 mg/ dL CHOLESTEROL (test code 168 MG/DL <200 = CHOL) HDL CHOLESTEROL (test 40 MG/DL 40-59 N code = HDL) LIPOPROTEIN LDL (test 92 MG/DL 0-99 N code = LDL) OPTIMAL........ .<100 mg/dLNEAR OPTIMAL/ABOVE OPTIMAL........ .100-12 9 mg/dL BORDERLINE HIGH.........13 0-159 mg/dL HIGH.........16 0-189 mg/dL VERY HIGH...... ...>/= 190 mg/dL [id number] 05:51:00 Test Item Value Reference Range Interpretation Comments MAGNESIUM (test code = MAG) 2.0 MG/DL 1.6-2.3 N PROTHROMBIN [id number] 05:43:00 Test Item Value Reference Range Interpretation Comments PROTHROMBIN TIME 11.4 SECONDS 9.4-12.5 N PATIENT (test code = PTP) INTERNATIONAL NORMAL 1.0 The INR is to be RATIO (test code = used only for INR) monitoring oral anticoagulantth erap y. INDICATION I NR VALUE ---- ---- ---- -------1. Prophylaxis, de ep venous thrombos is, including hig h risk surgery. 2.0 - 3.0 2. Prophylaxis, de ep venous thrombos is, hip surgery, treatment for d eep venous thrombosis or pulmonary prevention of systemic emboli sm in patients wit h valvular heart disease, atrial fibrillation, tissue heart va lve, or acute myocar dial infarction. 2.0 - 3 .0 3. Mechanical prosthesis hear t valves, recurrent syste gaustin embolism. 3.0 - 4.5 Comments to Stove Refinisher: WILL BRING TO [facility] [id number] 05:43:00 Test Item Value Reference Range Interpretation Comments PTT ACTIVATED (test code = APTT) 28.9 SECONDS 25.1-36.5 N Comments to Stove Refinisher: WILL BRING TO [facility] METABOLIC [id number] 05:42:00 Test Item Value Reference Range Interpretation Comments SODIUM (test code = 138 MMOL/L 137-145 N NA) POTASSIUM (test code = 4.8 MMOL/L 3.5-5.1 N K) CHLORIDE (test code = 102 MMOL/L 98-107 N CL) CARBON DIOXIDE (test 25 MMOL/L 22-30 N code = CO2) ANION GAP (test code = 16 MMOL/L 14-24 N GAP) GLUCOSE (test code = 340 MG/DL 74-106 HH CALLED TO MARIANA Maria& READBACK ON 01/21/20 AT 054 2 BY Stuart Kim BLOOD UREA NITROGEN 26 MG/DL 9-20 H (test code = BUN) GLOMERULAR FILTRATION > 60 Report ing units: RATE (test code = GFR) ml/mi n/1.73 m2 (Modified MDRD Formula)Referen ce Range: > or = 6 0 ml/min/1.73 m2 CREATININE (test code 1.20 MG/DL 0.66-1.25 N = CREAT) CALCIUM (test code = 9.4 MG/DL 8.4-10.2 N CA) LIPID PROFILE (CORONARY RISK)2020-01-21 05:42:00 Test Item Value Reference Range Interpretation Comments TRIGLYCERIDES (test 321 MG/DL TRIGLYCE RIDES code = TRIG) REFERENCE RANGE:Normal: < 150 mg/dLBorderline High: 150-199 mg/dLHi gh: 200-499 mg/dLVe ry High: >=500 mg/ dL CHOLESTEROL (test code 168 MG/DL <200 = CHOL) HDL CHOLESTEROL (test 40 MG/DL 40-59 N code = HDL) LIPOPROTEIN LDL (test MG/DL 0-99 code = LDL) [id number] 05:42:00 Test Item Value Reference Range Interpretation Comments MAGNESIUM (test code = MAG) 2.0 MG/DL 1.6-2.3 N CBC W/AUTO [id number] 05:41:00 Test Item Value Reference Range Interpretation Comments WHITE BLOOD CELL (test code = 6.7 K/MM3 3.8-9.8 N WBC) RED BLOOD CELL (test code = 4.70 M/MM3 3.95-5.67 N RBC) HEMOGLOBIN (test code = HGB) 14.3 G/DL 12.4-16.7 N HEMATOCRIT (test code = HCT) 42.6 % 35.9-49.5 N MEAN CELL VOLUME (test code = 91 fL 81.7-96.1 N MCV) MEAN CELL HGB (test code = MCH) 30.4 pg 27.6-33.2 N MEAN CELL HGB CONCETRATION 33.6 % 32.9-35.5 N (test code = MCHC) RED CELL DISTRIBUTION WIDTH 13.1 % 12.1-15.2 N (test code = RDW) PLATELET COUNT (test code = 235 K/MM3 129-368 N PLT) MEAN PLATELET VOLUME (test code 9.1 fl 7.4-10.4 N = MPV) NEUTROPHIL % (test code = NT%) 58.5 % 43-75 N IMMATURE GRANULOCYTE % (test 0.3 % 0.0-2.0 N code = IG%) LYMPHOCYTE % (test code = LY%) 27.0 % 14-44 N MONOCYTE % (test code = MO%) 9.6 % 4-13 N EOSINOPHIL % (test code = EO%) 3.7 % 0-6 N BASOPHIL % (test code = BA%) 0.9 % 0-2 N NUCLEATED RBC % (test code = 0.0 % 0-1.0 N NRBC%) NEUTROPHIL # (test code = NT#) 3.92 K/mm3 2.0-7.6 N IMMATURE GRANULOCYTE # (test 0.02 x10 3/uL 0-0.03 N code = IG#) LYMPHOCYTE # (test code = LY#) 1.81 K/mm3 1.0-3.8 N MONOCYTE # (test code = MO#) 0.64 K/mm3 0.1-0.8 N EOSINOPHIL # (test code = EO#) 0.25 K/mm3 0.0-0.2 H BASOPHIL # (test code = BA#) 0.06 K/mm3 0.0-0.2 N NUCLEATED RBC # (test code = 0.00 K/mm3 0.0-0.1 N NRBC#) BASIC METABOLIC [id number] 05:38:00 Test Item Value Reference Range Interpretation Comments SODIUM (test code = NA) 138 MMOL/L 137-145 N POTASSIUM (test code = K) 4.8 MMOL/L 3.5-5.1 N CHLORIDE (test code = CL) 102 MMOL/L 98-107 N CARBON DIOXIDE (test code = CO2) MMOL/L 22-30 GLUCOSE (test code = GLU) MG/DL 74-106 BLOOD UREA NITROGEN (test code = MG/DL 9-20 BUN) GLOMERULAR FILTRATION RATE (test code = GFR) CREATININE (test code = CREAT) MG/DL 0.66-1.25 CALCIUM (test code = CA) MG/DL 8.7-9.7 LIPID PROFILE (CORONARY RISK)2020-01-21 05:38:00 Test Item Value Reference Range Interpretation Comments TRIGLYCERIDES (test code = TRIG) MG/DL CHOLESTEROL (test code = CHOL) 168 MG/DL <200 HDL CHOLESTEROL (test code = HDL) MG/DL 40-59 LIPOPROTEIN LDL (test code = LDL) MG/DL 0-99 [id number] 05:38:00 Test Item Value Reference Range Interpretation Comments MAGNESIUM (test code = MAG) MG/DL 1.6-2.3 BASIC METABOLIC [id number] 05:36:00 Test Item Value Reference Range Interpretation Comments SODIUM (test code = NA) 138 MMOL/L 137-145 N POTASSIUM (test code = K) 4.8 MMOL/L 3.5-5.1 N CHLORIDE (test code = CL) 102 MMOL/L 98-107 N CARBON DIOXIDE (test code = CO2) MMOL/L 22-30 GLUCOSE (test code = GLU) MG/DL 74-106 BLOOD UREA NITROGEN (test code = MG/DL 9-20 BUN) GLOMERULAR FILTRATION RATE (test code = GFR) CREATININE (test code = CREAT) MG/DL 0.66-1.25 CALCIUM (test code = CA) MG/DL 8.7-9.7 LIPID PROFILE (CORONARY RISK)2020-01-21 05:36:00 Test Item Value Reference Range Interpretation Comments TRIGLYCERIDES (test code = TRIG) MG/DL CHOLESTEROL (test code = CHOL) MG/DL <200 HDL CHOLESTEROL (test code = HDL) MG/DL 40-59 LIPOPROTEIN LDL (test code = LDL) MG/DL 0-99 [id number] 05:36:00 Test Item Value Reference Range Interpretation Comments MAGNESIUM (test code = MAG) MG/DL 1.6-2.3
[2020-07-12 17:13] LABS: Absolute Lymphocytes (CBC) 1.8 K/uL (0.7-4.9); Basophils % 0.6 % (0-1.3); Hematocrit 37.2 % (39.6-49.0); MPV 7.3 fL (7.6-11.3); RBC Red Blood Cell Count 4.26 M/uL (4.33-5.43)
--- NOTE | 2020-07-12 17:13 | RAD REPORT ---
EXAM DESCRIPTION: CT - Ct Stroke Brain Wo Cont - 07/12/2020 5:02 pm CLINICAL HISTORY: Confused;Aphasia COMPARISON: Chest Single View dated 07/12/2020 TECHNIQUE: Axial 5 millimeter thick images of the head were obtained without IV contrast. All CT scans are performed using dose optimization technique as appropriate and may include automated exposure control or mA/KV adjustment according to patient size. FINDINGS: No intracranial hemorrhage confirmed. A 4 millimeter area of slightly increased density ne ar the genu internal capsule on the left do not suspected to be hemorrhage. No cortical edema or sulc al effacement. There is subtle decrease in attenuation along the left insular cortex and external cap zuly. Left subfrontal decreased attenuation is believed to be artifact. No mass effect, edema or shif t of midline structures. No significant chronic ischemic change in the cerebral white matter. Atrophy is mild. Ventricles are in proportion. No extra-axial fluid collections. Cadet matter-white matter d ifferentiation is preserved. Visualized portions of the mastoid air cells, paranasal sinuses, and orbits are unremarkable. Findings telephoned to the referring clinician 5:07 p.m.. IMPRESSION: No intracranial hemorrhage confirmed. Subtle hyperdensity near the left-side genu manager internship al capsule is not suspected to be blood. Patient has no gross evidence for acute ischemia. There are subtle changes near the left internal cap zuly, external capsule and insular cortex that are questionable for nonhemorrhagic infarction and cou ld explain aphasia symptoms. Follow-up MRI imaging may be helpful for further characterization.
[2020-07-12 17:16] LABS: Protime INR 1.09
[2020-07-12] MEDS ORDERED: ALTEPLASE 100 ML IV ONE (17:22)
[2020-07-12 17:26] LABS: Potassium 4.8 mmol/L (3.5-5.1)
--- NOTE | 2020-07-12 17:31 | RAD REPORT ---
EXAM DESCRIPTION: RAD - Chest Single View - 07/12/2020 5:11 pm CLINICAL HISTORY: AMS, Stroke protocol chest exam COMPARISON: None TECHNIQUE: AP portable chest image was obtained 07/12/2020 5:11 pm . FINDINGS: Lung volumes are low. Portable technique and large body habitus further limit the examinat ion. Sternotomy wires are in place. No significant failure or volume overload findings seen. No perip heral mass or consolidation identifiable. Cardiac silhouette is enlarged. Pericardial fat pads are present. No acute vascular engorgement. Car diac enlargement may be the affects of aforementioned exam limitations. No measurable pleural effusio n and no pneumothorax. No acute bony abnormality seen. No acute aortic findings suspected. IMPRESSION: Limited portable study without acute cardiopulmonary finding.
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
--- NOTE | 2020-07-12 17:32 | EDPHYS ---
Physician Documentation [facility] Name: Magdy Payan Age: 64 yrs Sex: Male : 1955 Arrival Date: 07/12/2020 Time: 16:53 Bed 8 Private MD: ED Physician Todd Martinez HPI: 07/12 17:13 This 64 yrs old Male presents to ER via EMS with complaints of AMS. kdr 17:13 The patient presents with confusion, decreased mental status, disorientation. Onset: kdr The symptoms/episode began/occurred just prior to arrival. 17:21 Possible causes: CVA or TIA, head injury. Associated signs and symptoms: The patient kdr has no apparent associated signs or symptoms. Current symptoms: In the emergency department the patient's symptoms are unchanged from the initial presentation. Patient's baseline: Neuro: alert and fully oriented, Motor: no deficits, Ambulation: walks without assistance, Speech: normal, The patient has a previous history of CAD and stents. The patient has not experienced similar symptoms in the past, Today he had a brief episode at about 11:00 AM where he was unable to speak. It is unknown whether or not the patient has recently seen a physician. . Historical: - Allergies: 17:01 NKDA; jd3 - Home Meds: 17:01 insulin [Active]; jd3 - PMHx: 17:01 Arthritis; Diabetes - NIDDM; Hypertension; jd3 - PSHx: 17:01 CABG; Heart stents; back; left knee; other heart sx; jd3 - Immunization history:: Adult Immunizations unknown. - Social history:: Smoking status: unknown. ROS: 18:08 Constitutional: Negative for fever, chills, and weight loss, Eyes: Negative for injury, kdr pain, redness, and discharge, Neck: Negative for injury, pain, and swelling, Cardiovascular: Negative for chest pain, palpitations, and edema. 18:08 Unable to obtain ROS due to altered mental status, patient's speech is incomprehensible, patient's inability to understand questions. Exam: 18:08 Constitutional: This is a well developed, well nourished patient who is awake, alert, kdr and in no acute distress. Head/Face: Normocephalic, atraumatic. Eyes: Pupils equal round and reactive to light, extra-ocular motions intact. Lids and lashes normal. Conjunctiva and sclera are non-icteric and not injected. Cornea within normal limits. Periorbital areas with no swelling, redness, or edema. Neck: Trachea midline, no thyromegaly or masses palpated, and no cervical lymphadenopathy. Supple, full range of motion without nuchal rigidity, or vertebral point tenderness. No Meningismus. Chest/axilla: Normal chest wall appearance and motion. Nontender with no deformity. No lesions are appreciated. Cardiovascular: Regular rate and rhythm with a normal S1 and S2. No gallops, murmurs, or rubs. Normal PMI, no JVD. No pulse deficits. Respiratory: Lungs have equal breath sounds bilaterally, clear to auscultation and percussion. No rales, rhonchi or wheezes noted. No increased work of breathing, no retractions or nasal flaring. Abdomen/GI: Soft, non-tender, with normal bowel sounds. No distension or tympany. No guarding or rebound. No evidence of tenderness throughout. Back: No spinal tenderness. No costovertebral tenderness. Full range of motion. Skin: Warm, dry with normal turgor. Normal color with no rashes, no lesions, and no evidence of cellulitis. MS/ Extremity: Pulses equal, no cyanosis. Neurovascular intact. Full, normal range of motion. 18:08 Neuro: Orientation: unable to test, Mentation: inappropriate for stated age, confused, unable to follow commands, Memory: unable to test, Motor: moves all fours, Sensation: unable to test. 18:32 ECG was reviewed by the Attending Physician. kdr Vital Signs: 17:01 BP 118 / 82; Pulse 85; Resp 20 S; Temp 98.4(A); Pulse Ox 98% on R/A; Weight 97.3 kg jd3 (M); Height 5 ft. 7 in. (170.18 cm) (R); Pain 0/10; 17:30 BP 101 / 64; Pulse 89; Resp 19 S; Pulse Ox 96% on R/A; Weight 97.3 kg (M); jd3 17:52 BP 83 / 44; Pulse 88; Resp 19 S; Pulse Ox 97% on R/A; jd3 18:10 BP 102 / 70; Pulse 85; Resp 20 S; Pulse Ox 98% on R/A; jd3 18:14 BP 106 / 63; Pulse 83; Resp 20 S; Pulse Ox 97% on R/A; jd3 18:19 BP 117 / 64; Pulse 81; Resp 19 S; Pulse Ox 97% on R/A; jd3 18:30 BP 109 / 69; Pulse 80; Resp 18 S; Pulse Ox 97% on R/A; jd3 18:45 BP 113 / 72; Pulse 81; Resp 20 S; Pulse Ox 97% on R/A; jd3 19:01 BP 112 / 71; Pulse 81; Resp 19 S; Pulse Ox 98% on R/A; jd3 19:51 BP 133 / 75; Pulse 80; Resp 20 S; Pulse Ox 98% on R/A; jd3 20:34 BP 129 / 62; Pulse 84; Resp 19; Pulse Ox 99% ; rr5 17:30 Body Mass Index 33.60 (97.30 kg, 170.18 cm) jd3 NIH Stroke Scale Scores: 17:00 NIHSS Score: 5 jd3 17:55 NIHSS Score: 5 jd3 MDM: 17:31 Patient medically screened. kdr 18:08 Data reviewed: vital signs, nurses notes, lab test result(s), radiologic studies. kdr Counseling: I had a detailed discussion with the patient and/or guardian regarding: the historical points, exam findings, and any diagnostic results supporting the discharge/admit diagnosis, lab results, radiology results, the need for further work-up and treatment in the hospital. Physician consultation: Martin Birch MD regarding consult, patient's condition, and will see patient in inpatient room. 07/12 16:55 Order name: Basic Metabolic Panel; Complete Time: 19:59 kdr 07/12 16:55 Order name: CBC with Diff; Complete Time: 19:59 kdr 07/12 16:55 Order name: Protime (+inr); Complete Time: 19:59 kdr 07/12 16:55 Order name: Ptt, Activated; Complete Time: 19:59 kdr 07/12 17:46 Order name: Urine Drug Screen EDAL 07/12 18:40 Order name: Hemoglobin aa5 07/12 16:55 Order name: CT Stroke Brain w/o Contrast; Complete Time: 19:59 kdr 07/12 16:55 Order name: Stroke CXR 1 View; Complete Time: 19:59 kdr 07/12 17:13 Order name: MRI - Brain Wo Cont bd 07/12 17:46 Order name: Echo with Doppler EDAL 07/12 17:46 Order name: Chest Pa And Lat (2 Views) EDAL 07/12 18:40 Order name: Hematocrit aa5 07/12 19:03 Order name: Hemoglobin; Complete Time: 19:59 EDMS 07/12 19:03 Order name: Hematocrit; Complete Time: 19:59 EDAL 07/12 16:55 Order name: EKG; Complete Time: 16:55 kdr 07/12 17:45 Order name: NPO EDAL 07/12 17:45 Order name: NPO EDAL 07/12 17:45 Order name: Physical Therapy Consult EDAL 07/12 17:45 Order name: Social Service Consult [facility] 07/12 17:46 Order name: NPO EDAL 07/12 17:46 Order name: EKG Electrocardiogram EDAL 07/12 17:46 Order name: Speech Therapy Consult [facility] 07/12 17:46 Order name: Carotid Artery Bilateral EDAL 07/12 18:50 Order name: CT Chest Abdomen W/ Contrast [facility] 07/12 19:58 Order name: MRI; Complete Time: 19:59 EDAL 07/12 20:04 Order name: CT; Complete Time: 20:16 EDAL 07/12 16:55 Order name: Accucheck; Complete Time: 19:07 kdr 07/12 16:55 Order name: Cardiac monitoring; Complete Time: 17:07 kdr 07/12 16:55 Order name: EKG - Nurse/Tech; Complete Time: 18:49 kdr 07/12 16:55 Order name: IV Saline Lock; Complete Time: 18:49 kdr 07/12 16:55 Order name: Labs collected and sent; Complete Time: 19:07 kdr 07/12 16:55 Order name: NPO; Complete Time: 18:49 kdr 07/12 16:55 Order name: O2 Per Protocol; Complete Time: 18:49 kdr 07/12 16:55 Order name: O2 Sat Monitoring; Complete Time: 18:50 kdr 07/12 16:55 Order name: Stroke Swallow Screen; Complete Time: 18:50 kdr EC:32 Rate is 87 beats/min. Rhythm is regular, Sinus Rhythm with PACs. QRS [place] is Normal. ID kdr interval is normal. QRS interval is normal. Clinical impression: LVH and Sinus arrythmia. Administered Medications: 17:24 Drug: ACTIvase {Co-Signature: iw (Karen Sullivan RN).} Route: IV Thrombolytics; Rate: jd3 calculated rate; Infused Over: 60 mins; 17:53 Follow up: Response: TPA stopped at 1753 due to low blood pressure, provider notified. jd3 17:55 Drug: NS 0.9% 1000 ml Route: IV; Rate: 1 bolus; Site: right forearm; jd3 19:06 Follow up: Response: No adverse reaction; IV Status: Completed infusion; IV Intake: jd3 1000ml 18:41 CANCELLED (Duplicate Order): NS 0.9% 1000 ml IV at 1000 ml once jd3 19:00 Drug: NS 0.9% 1000 ml Route: IV; Rate: 1 bolus; Site: left antecubital; jd3 20:42 Follow up: Response: No adverse reaction; IV Status: Completed infusion ea Point of Care Testing: Blood Glucose: 17:26 Blood Glucose: 156 mg/dL; jd3 Ranges: Critical Glucose Levels:Adult <50 mg/dl or >400 mg/dl <40 mg/dl or >180 mg/dl Disposition: 07/12/20 17:31 Hospitalization ordered by Terrie Grant for Inpatient Admission. Preliminary diagnosis are Acute Renal Failure, Abdominal and pelvic pain. - Bed requested for Intensive Care Unit. - Status is Inpatient Admission. sg - Condition is Fair. - Problem is new. - Symptoms are unchanged. NIH Stroke Scale - NIH Stroke Score Date: 07/12/2020 Time: 17:00 Total Score = 5 1a. Level of Consciousness (LOC) - 0(Alert) 1b. Level of Consciousness (LOC) (Year \T\ Age) - 1(One) 1c. LOC Commands (Open \T\ Closes Eyes/Plant Anatomist) - 0(Both) 2. Best Gaze (Lateral Gaze Paresis) - 0(Normal) 3. Visual Field Loss - 0(No visual loss) 4. Facial Palsy - 0(Normal) 5a. Left Arm: Motor (10-second hold) - 0(No drift) 5b. Right Arm: Motor (10-second hold) - 0(No drift) 6a. Left Leg: Motor (5-second hold - always test supine) - 0(No drift) 6b. Right Leg: Motor (5-second hold - always test supine) - 0(No drift) 7. Limb Ataxia (finger/nose \T\ heel/dotson - test with eyes open) - 0(Absent) 8. Sensory Loss (pinprick arms/legs/face) - 1(Mild to moderate loss) 9. Best Language: Aphasia (description/naming/reading) - 2(Severe aphasia) 10. Dysarthria (speech clarity - read or repeat words) - 1(Mild to Moderate) 11. Extinction and Inattention (visual/tactile/auditory/spatial/personal) - 0(No abnormality) Initials: jose f NIH Stroke Scale - NIH Stroke Score Date: 07/12/2020 Time: 17:55 Total Score = 5 1a. Level of Consciousness (LOC) - 0(Alert) 1b. Level of Consciousness (LOC) (Year \T\ Age) - 1(One) 1c. LOC Commands (Open \T\ Closes Eyes/Plant Anatomist) - 0(Both) 2. Best Gaze (Lateral Gaze Paresis) - 0(Normal) 3. Visual Field Loss - 0(No visual loss) 4. Facial Palsy - 0(Normal) 5a. Left Arm: Motor (10-second hold) - 0(No drift) 5b. Right Arm: Motor (10-second hold) - 0(No drift) 6a. Left Leg: Motor (5-second hold - always test supine) - 0(No drift) 6b. Right Leg: Motor (5-second hold - always test supine) - 0(No drift) 7. Limb Ataxia (finger/nose \T\ heel/dotson - test with eyes open) - 0(Absent) 8. Sensory Loss (pinprick arms/legs/face) - 1(Mild to moderate loss) 9. Best Language: Aphasia (description/naming/reading) - 2(Severe aphasia) 10. Dysarthria (speech clarity - read or repeat words) - 1(Mild to Moderate) 11. Extinction and Inattention (visual/tactile/auditory/spatial/personal) - 0(No abnormality) Initials: jose f Signatures: Dispatcher [employer] EDShantal Reich RN RN dw Gay, Steven, RN RN sg Rittger, Kevin, MD MD [facility] Svetlana Cage RN RN aa5 Manuel Mcgee PA PA cp Davies, Jonathon, RN RN jd3 Velia Fonseca RN, ea, RN iw Corrections: (The following items were deleted from the chart) 18:28 17:31 Hospitalization Ordered by Terrie Grant MD for Inpatient Admission. dw Preliminary diagnosis is Acute Renal Failure; Abdominal and pelvic pain. Bed requested for Telemetry/MedSurg (Inpatient). Status is Inpatient Admission. Condition is Fair. Problem is new. Symptoms are unchanged. kdr 18:41 18:41 NS 0.9% 1000 ml IV at 1000 ml once ordered. aa5 jd3 20:28 18:28 07/12/2020 17:31 Hospitalization Ordered by Terrie Grant MD for dw Inpatient Admission. Preliminary diagnosis is Acute Renal Failure; Abdominal and pelvic pain. Bed requested for [facility] ER HOLD. Status is Inpatient Admission. Condition is Fair. Problem is new. Symptoms are unchanged. dw 21:02 20:28 07/12/2020 17:31 Hospitalization Ordered by Terrie Grant MD for sg Inpatient Admission. Preliminary diagnosis is Acute Renal Failure; Abdominal and pelvic pain. Bed requested for Intensive Care Unit. Status is Inpatient Admission. Condition is Fair. Problem is new. Symptoms are unchanged. dw
[2020-07-12] MEDS ORDERED: ACETAMINOPHEN 500 MG TAB PO PRN (17:39)
[2020-07-12] MEDS ORDERED: ONDANSETRON 4 MG/2 ML VIAL IV PRN (17:39)
[2020-07-12] MEDS ORDERED: NA CHLORIDE 0.9% 1,000 ML ONE ×2 (18:12→22:00)
--- NOTE | 2020-07-12 19:57 | RAD REPORT ---
EXAM DESCRIPTION: MRI - Brain Wo Cont - 07/12/2020 7:37 pm CLINICAL HISTORY: CONFUSED COMPARISON: Ct Stroke Brain Wo Cont dated 07/12/2020 TECHNIQUE: Sagittal T1-weighted images were obtained along with axial PD, heavily T2-weighted and T2 -FLAIR images. Axial DWI and ADC mapping sequences were also obtained along with coronal heavily T2-w eighted images. FINDINGS: No intracranial hemorrhage, mass or acute infarction. There is no edema or shift of midlin e structures. No cortical edema or sulcal effacement. Mild atrophy changes are present. Ventricles ar e in proportion. Trace amount of chronic ischemic change seen. Cadet-matter/white matter junction is p reserved. Signal voids are seen as a normal finding in the major intracranial vessels. No globe or orbital content abnormality. No sella or supra sella abnormality. Mastoid air cells are clear. Trace amount of fluid in left maxillary sinus. IMPRESSION: No acute infarction changes. No hemorrhage, mass or acute intracranial finding. Mild atrophy changes are present with trace amount of chronic ischemic change.
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
--- NOTE | 2020-07-12 20:19 | RAD REPORT ---
EXAM DESCRIPTION: - CP - 07/12/2020 7:59 pm CLINICAL HISTORY: cva COMPARISON: No comparisons TECHNIQUE: Real-time sonographic evaluation of bilateral carotid and vertebral systems was performed . Cadet scale and Doppler interrogation were performed with waveform tracing bilaterally. FINDINGS: Normal high resistance waveforms are noted in both external carotid arteries. The common c arotid arteries and internal carotid arteries show normal low resistance waveforms. Calcified plaquing changes are present in each carotid bulb, left greater than right. Visually there is no significant degree of luminal narrowing. Peak systolic and end diastolic velocity values and th e ICA/CCA ratios are in the non-hemodynamically significant range. Antegrade flow seen in both vertebral arteries. Velocity values and ratios were recorded and are retained in the patient's imaging records. IMPRESSION: Calcified plaquing changes in each carotid bulb. No evidence of a hemodynamically significant stenosis.
[2020-07-12 21:22] VITALS: O2SAT 99
[2020-07-12 21:39] VITALS: BMI 33.6
[2020-07-12] MEDS: NA CHLORIDE 0.9% 1,000 ML IV SCH (21:55)
[2020-07-13 04:27] LABS: Protime INR 1.1
[2020-07-13 05:00] LABS: ALT/SGPT 25 U/L (12-78); AST/SGOT 19 U/L (15-37); Albumin 3.3 g/dL (3.4-5.0); Alkaline Phosphatase 56 U/L (45-117); BUN Blood Urea Nitrogen 34 mg/dL (7-18); Bicarbonate 25 mmol/L (21-32); Bilirubin Total 0.7 mg/dL (0.2-1.0); Folic Acid, (Folate) 13.9 ng/mL (3.1-17.5); Glucose Level 133 mg/dL (74-106); HDL Cholesterol 42 mg/dL (40-60); LDL Cholesterol, Calculated 59 (<130); Magnesium 1.8 mg/dL (1.8-2.4); Phosphorus 3.4 mg/dL (2.5-4.9); Potassium 4.3 mmol/L (3.5-5.1); Protein, Total 7.5 g/dL (6.4-8.2); Sodium Level 140 mmol/L (136-145); T4,Total 7.9 ug/dL (4.5-12.1); Troponin I < 0.02 ng/mL (0.0-0.045)
[2020-07-13] MEDS ORDERED: MAGNESIUM SULFATE 1 gm IVPB 1 GM/100 ML BAG IV ONE ×2 (05:33→06:21)
[2020-07-13] MEDS: NA CHLORIDE 0.9% 1,000 ML IV SCH (07:20)
[2020-07-13] MEDS: ASPIRIN EC 81 MG TAB PO SCH ×2 (09:00→09:34)
[2020-07-13] MEDS: CLOPIDOGREL 75 MG TABLET PO SCH ×2 (09:00→09:34)
[2020-07-13] MEDS ORDERED: CLOPIDOGREL 75 MG TABLET ONE (09:41)
[2020-07-13] MEDS ORDERED: ASPIRIN EC 81 MG TAB PO ONE (09:42)
[2020-07-13 11:36] LABS: Absolute Lymphocytes (CBC) 1.4 K/uL (0.7-4.9); Basophils % 0.6 % (0-1.3); Hematocrit 31.4 % (39.6-49.0); Lymphocytes % 20.4 % (15.3-44.8); MPV 7.2 fL (7.6-11.3); Potassium 4.5 mmol/L (3.5-5.1); RBC Red Blood Cell Count 3.58 M/uL (4.33-5.43)
[2020-07-13 11:37] LABS: Magnesium 2.3 mg/dL (1.8-2.4); Phosphorus 2.8 mg/dL (2.5-4.9)
--- NOTE | 2020-07-13 11:39 | EKG ---
Test Date: 2020-07-12 Test Time: 17:12:08 Tester Operator Helper: DEIRDRE MEASUREMENT RESULTS: Intervals: Rate: 87 IN: 132 QRSD: 102 QT: 360 QTc: 433 [place]ridge: P: 59 IN: 132 QRS: 55 T: 213 INTERPRETIVE STATEMENTS: Sinus rhythm with premature atrial complexes Left ventricular hypertrophy with repolarization abnormality Abnormal ECG Compared to ECG 04/06/2009 09:04:21 Atrial premature complex(es) now present Electronically Signed On 07-13-20 11:38:24 CDT by Kirill Leblanc
[2020-07-13 11:49] LABS: Barbiturates NEGATIVE (NEGATIVE); Benzodiazepines NEGATIVE (NEGATIVE); Cocaine NEGATIVE (NEGATIVE); METHAMPHETAM NEGATIVE (NEGATIVE); Methadone NEGATIVE (NEGATIVE); Opiates NEGATIVE (NEGATIVE); Phencyclidine NEGATIVE (NEGATIVE); THC Cannibis NEGATIVE (NEGATIVE)
--- NOTE | 2020-07-13 12:45 | ECHO ---
HEIGHT: 5 ft 9 in WEIGHT: 228 lb 0 oz DATE OF STUDY: 07/13/[address]: Terrie Grant MD 2-DIMENSIONAL: YES M.MODE: YES DOPPLER: YES COLOR FLOW: YES TDS: NO PORTABLE: NO DEFINITY: NO BUBBLE STUDY: NO DIAGNOSIS: STROKE CARDIAC HISTORY: CATHERIZATION: YES SURGERY: CABG PROSTHETIC VALVE: NO PACEMAKER: NO MEASUREMENTS (cm) DIASTOLIC (NORMALS) SYSTOLIC (NORMALS) IVSd 1.31 (0.6-1.2) LA Diam (1.9-4.0) LVEF 45-50% LVIDd 4.6 (3.5-5.7) LVIDs 3.1 (2.0-3.5) %FS 32% LVPWd 1.2 (0.6-1.2) Ao Diam 3.1 (2.0-3.7) 2 DIMENSIONAL ASSESSMENT: RIGHT ATRIUM: NORMAL LEFT ATRIUM: NORMAL RIGHT VENTRICLE: NORMAL LEFT VENTRICLE: NORMAL SIZE TRICUSPID VALVE: NORMAL MITRAL VALVE: NORMAL PULMONIC VALVE: NORMAL AORTIC VALVE: STENOSIS PERICARDIAL EFFUSION: NONE AORTIC ROOT: NORMAL LEFT VENTRICULAR WALL MOTION: PARADOXICAL SEPTAL MOTION. DOPPLER/COLOR FLOW: MILD AORTIC STENOSIS - AREA 1.7 CENTIMETERS SQUARED. COMMENTS: MILD AORTIC STENOSIS - AREA 1.7 CENTIMETERS SQUARED. PARADOXICAL SEPTUM. MILD GLOBAL HYPOKINESIS. 45-50% EJECTION FRACTION. TECHNOLOGIST: ELADIA GILBERT
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
[2020-07-13 16:23] LABS: Hematocrit 33.3 % (39.6-49.0); MPV 7.3 fL (7.6-11.3); RBC Red Blood Cell Count 3.77 M/uL (4.33-5.43)
[2020-07-13 17:21] VITALS: BP 118/84; TEMP 98.7
[2020-07-13] MEDS ORDERED: CYANOCOBALAMIN 1000MCG/ML INJ IM ONE (18:00)
[2020-07-13 23:27] LABS: RPR (Rapid Plasma Reagin) NON-REACT (NON-REACT)
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
== END 2020-07-13 18:28 | disposition home or self-care (01) | DRG 63 ==
LOC: ER 16:39 → ERHOLD 17:39
PROVIDERS: ADMIT Hospitalist; ATTEND Hospitalist
DX: I63.9 Cerebral infarction, unspecified (principal); E11.9 Type 2 diabetes mellitus without complications; E78.5 Hyperlipidemia, unspecified; I25.10 Atherosclerotic heart disease of native coronary artery without angina pectoris; I10 Essential (primary) hypertension; F07.81 Postconcussional syndrome; I25.2 Old myocardial infarction; R47.01 Aphasia; R29.705 NIHSS score 5; S29.9XXA Unspecified injury of thorax, initial encounter; V49.9XXA Car occupant (driver) (passenger) injured in unspecified traffic accident, initial encounter; Z79.82 Long term (current) use of aspirin; Z79.02 Long term (current) use of antithrombotics/antiplatelets; Z79.4 Long term (current) use of insulin; Z79.899 Other long term (current) drug therapy; Z95.1 Presence of aortocoronary bypass graft; Z95.5 Presence of coronary angioplasty implant and graft
CPT/HCPCS: 36415; 70450; 70551; 71045; 71250; 74176; 80048; 80053; 80061; 80307; 81240; 81241; 82306; 82607; 82746; 83090; 83735; 84100; 84436; 84443; 84484; 85014; 85018; 85025; 85027; 85300; 85302; 85305; 85306; 85610; 85730; 86021; 86147; 86592; 92610; 92977; 93005; 93306; 93880; 96360; 96361; 97116; 97161; 99285; J2997; J3420; J3475; J7030; U0002

== ENCOUNTER 2021-10-25 13:56 | Emergency (ER) | payer OTHER ==
--- OUTSIDE RECORDS SUMMARY | 2021-10-25 14:03 | XMS REPORT | Continuity of Care Document ---
:1955 Author Organization [facility] t Address [address] [place] [address] Care Team Providers Name Role Phone Simon Wells Attending Clinician Unavailable Leo Castellanos Attending Clinician Unavailable SIVER Admitting Clinician Unavailable KNOW Admitting Clinician Unavailable Leo Castellanos Admitting Clinician Unavailable Payers Payer Name Policy Type Policy Number Effective Date Expiration Date S ource Problems This patient has no known problems. Allergies, Adverse Reactions, Alerts Allergy Allergy Status Severity Reaction(s) Onset Inactive Treating Comm ents Source Name Type Date Date Clinician No Known DA Active U 2020-0 [facility] [place] [facility] 00:[facility]: [address] No Known DA Active U 2020-0 [facility] [place] 00:[place]: [address] Medications This patient has no known medications. Procedures Procedure Date / Time Performed Performing Clinician Sridevi torres [id number] 2020-02-03 00:00:00 [facility] [id number] 2020-02-03 00:00:00 [facility] [id number] 2020-02-03 00:00:00 [facility] [id number] 2020-02-03 00:00:00 [facility] [id number] 2020-02-03 00:00:00 [facility] [id number] 2020-02-03 00:00:00 [facility] [id number] 2020-02-03 00:00:00 [facility] [id number] 2020-02-03 00:00:00 [facility] [id number] 2020-02-03 00:00:00 [facility] [id number] 2020-02-03 00:00:00 [facility] Encounters Start End Encounter Admission Attending Care Care Encounter Source Date/Time Date/Time Type Type Clinicians Facility Department ID 2020-02-02 Inpatient EL Russell, [facility] OUTD [id number] [facility] 14:30:00 [facility] 2020-01-21 Inpatient BERRY Castellanos, [facility] SUR[facility] [id number] [facility] 07:00:00 Damon [id number] [facility] 2020-02-03 2020-02-03 Outpatient KIRTI WellsWU SURG [id number] [facility] 08:00:00 08:00:00 [facility] Results Test Description Test Time Test Comments Results Result Comments Source GLUCOSE BEDSIDE TESTING 2020-02-08 11:55:00 Test Item Value Reference Range Interpretation Comme nts GLUCOSE BEDSIDE TESTING (test code = GLUBED) 137 MG/DL 60-99 H GLUCOSE BEDSIDE [id number] 08:08:00 Test Item Value Reference Range Interpretation Comments GLUCOSE BEDSIDE TESTING (test code 165 MG/DL 60-99 H = GLUBED) BASIC METABOLIC [id number] 06:52:00 Test Item Value Reference Range Interpretation [...] 8.6 MG/DL 8.4-10.2 N CA) BASIC METABOLIC [id number] 06:50:00 Test Item Value Reference Range Interpretation [...] code = MG/DL 8.7-9.7 CA) BASIC METABOLIC [id number] 06:50:00 Test Item Value Reference Range Interpretation [...] code = MG/DL 8.7-9.7 CA) BASIC METABOLIC [id number] 06:47:00 Test Item Value Reference Range Interpretation [...] code = CA) MG/DL 8.7-9.7 CBC W/AUTO [id number] 06:29:00 Test Item Value Reference Range Interpretation [...] 0.05 K/mm3 0.0-0.1 N NRBC#) GLUCOSE BEDSIDE [id number] 20:18:00 Test Item Value Reference Range Interpretation Comments GLUCOSE BEDSIDE TESTING (test code 149 MG/DL 60-99 H = GLUBED) GLUCOSE BEDSIDE [id number] 16:48:00 Test Item Value Reference Range Interpretation Comments GLUCOSE BEDSIDE TESTING (test code 164 MG/DL 60-99 H = GLUBED) CBC W/AUTO [id number] 15:10:00 Test Item Value Reference Range Interpretation [...] 0.04 K/mm3 0.0-0.1 N NRBC#) BASIC METABOLIC [id number] 13:50:00 Test Item Value Reference Range Interpretation [...] 8.2 MG/DL 8.4-10.2 L CA) BASIC METABOLIC [id number] 13:48:00 Test Item Value Reference Range Interpretation [...] code = MG/DL 8.7-9.7 CA) BASIC METABOLIC [id number] 13:46:00 Test Item Value Reference Range Interpretation [...] code = CA) MG/DL 8.7-9.7 GLUCOSE BEDSIDE [id number] 09:47:00 Test Item Value Reference Range Interpretation Comments GLUCOSE BEDSIDE TESTING (test code 237 MG/DL 60-99 H = GLUBED) - XR CHEST [id number] 08:13:00 Patient Name: AKILAH ANDRES Unit No: [id number] EXAMS: CPT CODE: [id number] XR CHEST 1V 82144 EXAM: XR Chest 1 View INDICATION: S/P [...] No interval change from prior radiograph. at 0813 Reported and signed by: Gloria Goss MD CC: Case Castellanos MD Technologist: Baylee Diego RT(R) Transcrpt Date/Tm/Trnsp: 02/07/2020 (812) t.SDR.EB14 Orig Print D/T: S: 02/07/2020 (817) [facility] NAME: AKILAH ANDRES [address] PHYS: [place] [address] : 1955 AGE: 64 SEX: M LOC: Z.364 A PHONE #: [phone] EXAM DATE: 02/07/2020 STATUS: ADM IN FAX #: [phone] RADIOLOGY NO: PAGE 1 Signed ReportGLUCOSE BEDSIDE [id number] 08:07:00 Test Item Value Reference Range Interpretation Comments GLUCOSE BEDSIDE TESTING (test code 292 MG/DL 60-99 H = GLUBED) GLUCOSE BEDSIDE [id number] 03:04:00 Test Item Value Reference Range Interpretation Comments GLUCOSE BEDSIDE TESTING (test code 187 MG/DL 60-99 H = GLUBED) GLUCOSE BEDSIDE [id number] 19:58:00 Test Item Value Reference Range Interpretation Comments GLUCOSE BEDSIDE TESTING (test code 233 MG/DL 60-99 H = GLUBED) GLUCOSE BEDSIDE [id number] 14:17:00 Test Item Value Reference Range Interpretation Comments GLUCOSE BEDSIDE TESTING (test code 256 MG/DL 60-99 H = GLUBED) - XR CHEST [id number] 10:51:00 Patient Name: AKILAH ANDRES Unit No: [id number] EXAMS: CPT CODE: [id number] XR CHEST 1V 41834 Dictation location: U19. CHEST, FRONTAL VIEW HI [...] MD CC: Case Castellanos MD; Sara Dillon WHITE [employer] TANK OPERATOR Technologist: [facility] STUDENT ; Akilah Caban, RT(R) Transcrpt Date/Tm/Trnsp: 02/06/2020 (1051) t.SDR.SP17 Orig Print D/T: S: 02/06/2020 (1054) [facility] NAME: AKILAH ANDRES [id number] PHYS: GABRIELE. Santana,[place] [address] : 1955 AGE: 64 SEX: M LOC: Z.SI02 A PHONE #: [phone] EXAMDATE: 02/06/2020 STATUS: ADM IN FAX #: [phone] RADIOLOGY NO: PAGE1 Signed ReportGLUCOSE BEDSIDE [id number] 09:54:00 Test Item Value Reference Range Interpretation Comments GLUCOSE BEDSIDE TESTING (test code 222 MG/DL 60-99 H = GLUBED) GLUCOSE BEDSIDE [id number] 09:53:00 Test Item Value Reference Range Interpretation Comments GLUCOSE BEDSIDE TESTING (test code 162 MG/DL 60-99 H = GLUBED) GLUCOSE BEDSIDE [id number] 09:50:00 Test Item Value Reference Range Interpretation Comments GLUCOSE BEDSIDE TESTING (test code 135 MG/DL 60-99 H = GLUBED) GLUCOSE BEDSIDE [id number] 09:49:00 Test Item Value Reference Range Interpretation Comments GLUCOSE BEDSIDE TESTING (test code 180 MG/DL 60-99 H = GLUBED) GLUCOSE BEDSIDE [id number] 09:35:00 Test Item Value Reference Range Interpretation Comments GLUCOSE BEDSIDE TESTING (test code 231 MG/DL 60-99 H = GLUBED) - XR CHEST [id number] 07:52:00 Patient Name: AKILAH ANDRES Unit No: [id number] EXAMS: CPT CODE: [id number] XR CHEST 1V 42845 EXAM: XR Chest 1 View INDICATION: S/P [...] Technologist: Westley Granger, RT(R) Transcrpt Date/Tm/Trnsp: 02/06/2020 (751) t.SDR.EB14 Orig Print D/T: S: 02/06/2020 (075) [facility] NAME: AKILAH ANDRES [address] PHYS: [place] [address] : 1955 AGE: 64 SEX: M LOC: Z.SI02 A PHONE #: [phone] EXAM DATE: 02/06/2020 STATUS: ADM IN FAX #: [phone] RADIOLOGY NO: PAGE 1 Signed ReportBASIC METABOLIC [...] code = 8.4 MG/DL 8.4-10.2 N CA) [id number] 05:16:00 Test Item Value Reference Range Interpretation Comments MAGNESIUM (test code = MAG) 1.9 MG/DL 1.6-2.3 N BASIC METABOLIC [id number] 05:14:00 Test Item Value Reference Range Interpretation [...] CALCIUM (test code = MG/DL 8.7-9.7 CA) [id number] 05:14:00 Test Item Value Reference Range Interpretation Comments MAGNESIUM (test code = MAG) MG/DL 1.6-2.3 BASIC METABOLIC [id number] 05:13:00 Test Item Value Reference Range Interpretation [...] CALCIUM (test code = CA) MG/DL 8.7-9.7 [id number] 05:13:00 Test Item Value Reference Range Interpretation Comments MAGNESIUM (test code = MAG) MG/DL 1.6-2.3 BASIC METABOLIC [id number] 05:12:00 Test Item Value Reference Range Interpretation [...] CALCIUM (test code = CA) MG/DL 8.7-9.7 [id number] 05:12:00 Test Item Value Reference Range Interpretation Comments MAGNESIUM (test code = MAG) MG/DL 1.6-2.3 PROTHROMBIN [id number] 05:04:00 Test Item Value Reference Range Interpretation [...] syste agustin embolism. 3.0 - 4.5 PTT [id number] 05:04:00 Test Item Value Reference Range Interpretation Comments PTT ACTIVATED (test code = APTT) 23.7 SECONDS 25.1-36.5 L CBC W/AUTO [id number] 04:58:00 Test Item Value Reference Range Interpretation [...] 0.00 K/mm3 0.0-0.1 N NRBC#) GLUCOSE BEDSIDE [id number] 17:06:00 Test Item Value Reference Range Interpretation Comments GLUCOSE BEDSIDE TESTING 385 MG/DL 60-99 HH Noti fied Physician~ (test code = GLUBED) GLUCOSE BEDSIDE [id number] 12:54:00 Test Item Value Reference Range Interpretation Comments GLUCOSE BEDSIDE TESTING 357 MG/DL 60-99 HH Noti fied Physician~ (test code = GLUBED) - XR CHEST [id number] 08:06:00 Patient Name: AKILAH ANDRES Unit No: [id number] EXAMS: CPT CODE: [id number] XR CHEST 1V 50072 EXAM: CHEST ONE VIEW INDICATION: S/P CABG [...] (805) 16 Orig Print D/T: S: 02/05/2020 (0809) [facility] NAME: AKILAH ANDRES [address] PHYS: [place] [address] : 1955 AGE: 64 SEX: M LOC: Z.SI02 APHONE #: [phone] EXAM DATE: 02/05/2020 STATUS: ADM IN FAX #: [phone] RADIOLOGY NO: PAGE 1 Signed ReportBASIC METABOLIC [id number] 05:34:00 Test Item Value Reference Range Interpretation [...] code = 8.1 MG/DL 8.4-10.2 L CA) [id number] 05:34:00 Test Item Value Reference Range Interpretation Comments MAGNESIUM (test code = MAG) 1.9 MG/DL 1.6-2.3 N BASIC METABOLIC [id number] 05:33:00 Test Item Value Reference Range Interpretation [...] code = 8.1 MG/DL 8.4-10.2 L CA) [id number] 05:33:00 Test Item Value Reference Range Interpretation Comments MAGNESIUM (test code = MAG) MG/DL 1.6-2.3 BASIC METABOLIC [id number] 05:32:00 Test Item Value Reference Range Interpretation [...] CALCIUM (test code = MG/DL 8.7-9.7 CA) [id number] 05:32:00 Test Item Value Reference Range Interpretation Comments MAGNESIUM (test code = MAG) MG/DL 1.6-2.3 BASIC METABOLIC [id number] 05:30:00 Test Item Value Reference Range Interpretation [...] CALCIUM (test code = CA) MG/DL 8.7-9.7 [id number] 05:30:00 Test Item Value Reference Range Interpretation Comments MAGNESIUM (test code = MAG) MG/DL 1.6-2.3 PROTHROMBIN [id number] 05:25:00 Test Item Value Reference Range Interpretation [...] syste agustin embolism. 3.0 - 4.5 PTT [id number] 05:25:00 Test Item Value Reference Range Interpretation Comments PTT ACTIVATED (test code = APTT) 23.5 SECONDS 25.1-36.5 L CBC W/AUTO [id number] 05:12:00 Test Item Value Reference Range Interpretation [...] 0.00 K/mm3 0.0-0.1 N NRBC#) GLUCOSE BEDSIDE [id number] 21:57:00 Test Item Value Reference Range Interpretation Comments GLUCOSE BEDSIDE TESTING (test code 169 MG/DL 60-99 H = GLUBED) GLUCOSE BEDSIDE [id number] 19:33:00 Test Item Value Reference Range Interpretation Comments GLUCOSE BEDSIDE TESTING (test code 109 MG/DL 60-99 H = GLUBED) GLUCOSE BEDSIDE [id number] 18:09:00 Test Item Value Reference Range Interpretation Comments GLUCOSE BEDSIDE TESTING (test code 159 MG/DL 60-99 H = GLUBED) GLUCOSE BEDSIDE [id number] 17:26:00 Test Item Value Reference Range Interpretation Comments GLUCOSE BEDSIDE TESTING (test code 187 MG/DL 60-99 H = GLUBED) GLUCOSE BEDSIDE [id number] 17:26:00 Test Item Value Reference Range Interpretation Comments GLUCOSE BEDSIDE TESTING (test code 182 MG/DL 60-99 H = GLUBED) GLUCOSE BEDSIDE [id number] 15:47:00 Test Item Value Reference Range Interpretation Comments GLUCOSE BEDSIDE TESTING (test code 202 MG/DL 60-99 H = GLUBED) GLUCOSE BEDSIDE [id number] 14:50:00 Test Item Value Reference Range Interpretation Comments GLUCOSE BEDSIDE TESTING (test code 219 MG/DL 60-99 H = GLUBED) GLUCOSE BEDSIDE [id number] 14:50:00 Test Item Value Reference Range Interpretation Comments GLUCOSE BEDSIDE TESTING (test code 206 MG/DL 60-99 H = GLUBED) GLUCOSE BEDSIDE [id number] 12:30:00 Test Item Value Reference Range Interpretation Comments GLUCOSE BEDSIDE TESTING (test code 228 MG/DL 60-99 H = GLUBED) GLUCOSE BEDSIDE [id number] 10:07:00 Test Item Value Reference Range Interpretation Comments GLUCOSE BEDSIDE TESTING (test code 155 MG/DL 60-99 H = GLUBED) GLUCOSE BEDSIDE [id number] 09:10:00 Test Item Value Reference Range Interpretation Comments GLUCOSE BEDSIDE TESTING (test code 173 MG/DL 60-99 H = GLUBED) GLUCOSE BEDSIDE [id number] 07:43:00 Test Item Value Reference Range Interpretation Comments GLUCOSE BEDSIDE TESTING (test code 162 MG/DL 60-99 H = GLUBED) - XR CHEST [id number] 07:38:00 Patient Name: AKILAH ANDRES Unit No: [id number] EXAMS: CPT CODE: [id number] XR CHEST 1V 32072 R16 EXAM: - XR CHEST 1V HISTORY: S/P CABG COMPARISON: 02/03/2020 FINDINGS: Interval removal of endotracheal tube. [place] catheter and right subclavian central line in [...] Technologist: Westley Granger, RT(R) Transcrpt Date/Tm/Trnsp: 02/04/2020 (0738) t.SDR.VB7 Orig Print D/T: S: 02/04/2020 (0741) [facility] NAME: AKILAH ANDRES [address] PHYS: [place] [address] : 1955 AGE: 64 SEX: M LOC: Z.SI02 A PHONE #: [phone] EXAM DATE: 02/04/2020 STATUS: ADM IN FAX #: [phone] RADIOLOGY NO: PAGE 1 Signed ReportGLUCOSE BEDSIDE [id number] 06:44:00 Test Item Value Reference Range Interpretation Comments GLUCOSE BEDSIDE TESTING (test code 160 MG/DL 60-99 H = GLUBED) GLUCOSE BEDSIDE [id number] 06:44:00 Test Item Value Reference Range Interpretation Comments GLUCOSE BEDSIDE TESTING (test code 151 MG/DL 60-99 H = GLUBED) GLUCOSE BEDSIDE [id number] 06:44:00 Test Item Value Reference Range Interpretation Comments GLUCOSE BEDSIDE TESTING (test code 162 MG/DL 60-99 H = GLUBED) GLUCOSE BEDSIDE [id number] 06:44:00 Test Item Value Reference Range Interpretation Comments GLUCOSE BEDSIDE TESTING (test code 201 MG/DL 60-99 H = GLUBED) GLUCOSE BEDSIDE [id number] 06:44:00 Test Item Value Reference Range Interpretation Comments GLUCOSE BEDSIDE TESTING (test code 212 MG/DL 60-99 H = GLUBED) GLUCOSE BEDSIDE [id number] 06:44:00 Test Item Value Reference Range Interpretation Comments GLUCOSE BEDSIDE TESTING (test code 168 MG/DL 60-99 H = GLUBED) GLUCOSE BEDSIDE [id number] 06:44:00 Test Item Value Reference Range Interpretation Comments GLUCOSE BEDSIDE TESTING (test code 161 MG/DL 60-99 H = GLUBED) BASIC METABOLIC [id number] 04:38:00 Test Item Value Reference Range Interpretation [...] code = 8.6 MG/DL 8.4-10.2 N CA) [id number] 04:38:00 Test Item Value Reference Range Interpretation Comments MAGNESIUM (test code = MAG) 2.1 MG/DL 1.6-2.3 PROTHROMBIN [id number] 04:34:00 Test Item Value Reference Range Interpretation [...] syste agustin embolism. 3.0 - 4.5 PTT [id number] 04:34:00 Test Item Value Reference Range Interpretation Comments PTT ACTIVATED (test code = APTT) 23.3 SECONDS 25.1-36.5 L BASIC METABOLIC [id number] 04:34:00 Test Item Value Reference Range Interpretation [...] CALCIUM (test code = CA) MG/DL 8.7-9.7 [id number] 04:34:00 Test Item Value Reference Range Interpretation Comments MAGNESIUM (test code = MAG) MG/DL 1.6-2.3 CBC W/AUTO [id number] 04:22:00 Test Item Value Reference Range Interpretation [...] K/mm3 0.0-0.1 N NRBC#) - XR CHEST [id number] 18:08:00 Patient Name: AKILAH ANDRES Unit No: [id number] EXAMS: CPT CODE: [id number] XR CHEST 1V 95597 Site ID: [id number] HISTORY: Status post CABG COMPARISON: Chest x-ray of the prior day FINDINGS: Endotracheal tube terminates appropriately, approximately 4.5 cm above the michelle. Right subclavian line is at the SVC, [place] at the right main pulmonary artery. The [...] Sugar Anders, RT(R) Transcrpt Date/Tm/Trnsp: 02/03/2020 (1808) t.SDR.AJP6 [facility] NAME: AKILAH ANDRES [address] PHYS: [place] [address] : 1955 AGE: 64 SEX: M LOC: Z.SI02 A PHONE #: [phone] EXAM DATE: 02/03/2020 STATUS: ADM IN FAX #: [phone] RADIOLOGY NO: PAGE 1 Signed ReportBASIC METABOLIC [id number] 17:14:00 Test Item Value Reference Range Interpretation [...] code = 8.6 MG/DL 8.4-10.2 N CA) [id number] 17:14:00 Test Item Value Reference Range Interpretation Comments MAGNESIUM (test code = MAG) 2.7 MG/DL 1.6-2.3 H BASIC METABOLIC [id number] 17:11:00 Test Item Value Reference Range Interpretation [...] CALCIUM (test code = MG/DL 8.7-9.7 CA) [id number] 17:11:00 Test Item Value Reference Range Interpretation Comments MAGNESIUM (test code = MAG) MG/DL 1.6-2.3 BASIC METABOLIC [id number] 17:08:00 Test Item Value Reference Range Interpretation [...] CALCIUM (test code = CA) MG/DL 8.7-9.7 [id number] 17:08:00 Test Item Value Reference Range Interpretation Comments MAGNESIUM (test code = MAG) MG/DL 1.6-2.3 PROTHROMBIN [id number] 17:05:00 Test Item Value Reference Range Interpretation [...] syste agustin embolism. 3.0 - 4.5 PTT [id number] 17:05:00 Test Item Value Reference Range Interpretation Comments PTT ACTIVATED (test code = APTT) 28.8 SECONDS 25.1-36.5 N CBC W/AUTO [id number] 16:58:00 Test Item Value Reference Range Interpretation [...] 0.00 K/mm3 0.0-0.1 N NRBC#) ARTERIAL BLOOD [id number] 16:54:00 Test Item Value Reference Range Interpretation [...] code = COHBGFFIO2) 100 % GLUCOSE BEDSIDE [id number] 16:50:00 Test Item Value Reference Range Interpretation Comments GLUCOSE BEDSIDE TESTING (test code 198 MG/DL 60-99 H = GLUBED) BASIC METABOLIC [id number] 15:44:00 Test Item Value Reference Range Interpretation [...] = 9.1 MG/DL 8.4-10.2 CA) BASIC METABOLIC [id number] 15:42:00 Test Item Value Reference Range Interpretation [...] (test code = MG/DL 8.7-9.7 CA) PROTHROMBIN [id number] 15:40:00 Test Item Value Reference Range Interpretation [...] syste agustin embolism. 3.0 - 4.5 PTT [id number] 15:40:00 Test Item Value Reference Range Interpretation Comments PTT ACTIVATED (test code = APTT) 27.0 SECONDS 25.1-36.5 N BASIC METABOLIC [id number] 15:39:00 Test Item Value Reference Range Interpretation [...] code = CA) MG/DL 8.7-9.7 BASIC METABOLIC [id number] 15:39:00 Test Item Value Reference Range Interpretation [...] code = CA) MG/DL 8.7-9.7 BASIC METABOLIC [id number] 15:39:00 Test Item Value Reference Range Interpretation [...] code = CA) MG/DL 8.7-9.7 CBC W/AUTO [id number] 15:33:00 Test Item Value Reference Range Interpretation [...] 0.00 K/mm3 0.0-0.1 N NRBC#) BASIC METABOLIC [id number] 14:44:00 Test Item Value Reference Range Interpretation [...] MG/DL 8.4-10.2 L CA) OR 5BASIC METABOLIC [id number] 14:40:00 Test Item Value Reference Range Interpretation [...] = CA) MG/DL 8.7-9.7 OR 5BASIC METABOLIC [id number] 14:39:00 Test Item Value Reference Range Interpretation [...] = CA) MG/DL 8.7-9.7 OR 5CBC W/AUTO [id number] 14:23:00 Test Item Value Reference Range Interpretation [...] = 0.00 K/mm3 0.0-0.1 N NRBC#) OR [id number] 12:48:00 Test Item Value Reference Range Interpretation Comments POTASSIUM (test code = K) 4.6 MMOL/L 3.5-5.1 N CALL RESULTS TO EXT 8482 [id number] 12:48:00 Test Item Value Reference Range Interpretation Comments GLUCOSE (test code = 334 MG/DL 74-106 HH CALLED TO ROBBIN.D& GLU) READBACK ON 05/19 AT 1248 BY Delmar Moreno CALL RESULTS TO EXT 8482 [id number] 12:41:00 Test Item Value Reference Range Interpretation Comments POTASSIUM (test code = K) 4.6 MMOL/L 3.5-5.1 N CALL RESULTS TO EXT 8482 [id number] 12:41:00 Test Item Value Reference Range Interpretation Comments GLUCOSE (test code = GLU) MG/DL 74-106 CALL RESULTS TO EXT 8482 HGB [id number] 12:27:00 Test Item Value Reference Range Interpretation Comments HEMOGLOBIN (test code = HGB) 11.5 G/DL 12.4-16.7 L HEMATOCRIT (test code = HCT) 32.1 % 35.9-49.5 L CBC W/AUTO [id number] 10:47:00 Test Item Value Reference Range Interpretation [...] = 0.00 K/mm3 0.0-0.1 N NRBC#) CALL *02526AWRBV METABOLIC [id number] 10:47:00 Test Item Value Reference Range Interpretation [...] 8.5 MG/DL 8.4-10.2 N CA) GLUCOSE BEDSIDE [id number] 09:17:00 Test Item Value Reference Range Interpretation Comments GLUCOSE BEDSIDE TESTING (test code 279 MG/DL 60-99 H = GLUBED) BASIC METABOLIC [id number] 08:14:00 Test Item Value Reference Range Interpretation [...] 9.5 MG/DL 8.4-10.2 N CA) ARTERIAL BLOOD [id number] 08:08:00 Test Item Value Reference Range Interpretation [...] code = COHBGFFIO2) 21 % BASIC METABOLIC [id number] 08:01:00 Test Item Value Reference Range Interpretation [...] code = MG/DL 8.7-9.7 CA) BASIC METABOLIC [id number] 07:59:00 Test Item Value Reference Range Interpretation [...] code = CA) MG/DL 8.7-9.7 BASIC METABOLIC [id number] 07:58:00 Test Item Value Reference Range Interpretation [...] code = CA) MG/DL 8.7-9.7 GLYCOSYLATED HEMOGLOBIN [id number] 17:47:00 Test Item Value Reference Range Interpretation [...] (test code = MBG) HIV 12 AB [id number] 17:35:00 Test Item Value Reference Range Interpretation Comments HIV 1 2 COMBO AG/AB SCREEN AB/AG NON REACTIVE NONREACTIVE (test code = [id number]) - CT CHEST W/O [id number] 17:16:00 Patient Name: AKILAH ANDRES Unit No: [id number] EXAMS: CPT CODE: [id number] CT CHEST W/O CONTRAST 93731 EXAM: - CT CHEST W/O CONTRAST HISTORY: [...] Management of Incidental Pulmonary Nodules Detected on [facility] NAME: AKILAH ANDRES [address] PHYS: [place] [address] : 1955 AGE: 64 SEX: M LOC: Z.NVL PHONE #: [phone] EXAM DATE: 02/02/2020 STATUS: REG CLI FAX #: [phone] RAD #: D/C DT PAGE 1 Signed Report (CONTINUED) Patient Name: AKILAH ANDRES Unit No: [id number] EXAMS: CPT CODE: [id number] CT CHEST W/O CONTRAST 34785 <Continued> CT Images: From the [employer] [...] by: Mechelle Geronimo MD CC: Technologist: Virginie REESE STUDENT ; Haroldo RITCHIE CTDI: DLP: Trnscrpt: 02/02/2020 (171) kitNESTORNikiKW9 [facility] NAME: AKILAH ANDRES [address] PHYS: [place] [address] : 1955 AGE: 64 SEX: M LOC: [employer] PHONE #: [phone] EXAM DATE: 02/02/2020 STATUS: REG CLI FAX#: [phone] RAD #: D/C DT PAGE 2Signed Report Patient Name: AKILAH ANDRES Unit No: [id number] EXAMS: CPT CODE: [id number] CT CHEST W/O CONTRAST 23749 <Continued> Orig Print D/T: S: 02/02/2020 (835) [facility] Leonardo NAME: AKILAH ANDRES [id number] PHYS: [place] [address] : 1955 AGE: 64 SEX: M LOC: [employer] PHONE #: [phone] EXAM DATE: 02/02/2020 STATUS: REG CLI FAX #: [phone] RAD #: D/C DT PAGE 3 Signed Report PROTHROMBIN [id number] 16:33:00 Test Item Value Reference Range Interpretation [...] PATIENT ON ANTICOAGULANTS: YLIST ANTICOAGULANTS: PlavixCOMPREHENSIVE METABOLIC [id number] 16:32:00 Test Item Value Reference Range Interpretation Comments SODIUM (test code = NA) 136 MMOL/L 137-145 L POTASSIUM (test code = 5.5 MMOL/L 3.5-5.1 H K) CHLORIDE (test code = 101 MMOL/L 98-107 N CL) CARBON DIOXIDE (test 16 MMOL/L 22-30 L code = CO2) GLUCOSE (test code = 355 MG/DL 74-106 HH CALLED TO MAGALYS MORA) READBACK ON 04/18 AT 1632 BY Garima [...] N (test code = ALKP) COMPREHENSIVE METABOLIC [id number] 16:10:00 Test Item Value Reference Range Interpretation [...] code = ALKP) - XR CHEST 2 [id number] 16:10:00 Patient Name: AKILAH ANDRES Unit No: [id number] EXAMS: CPT CODE: [id number] XR CHEST 2 V 73282 LOCATION: T18 EXAM: CHEST 2 VIEWS INDICATION: , ME EOP COMPARISON: None. TECHNIQUE: PA and lateral [...] [email or web address] Orig Print D/T: S: 02/02/2020 (1613) [facility] NAME: AKILAH ANDRES [id number] PHYS: [place] [address] : 1955 AGE: 64 SEX: M LOC: [facility] PHONE #: [phone] EXAM DATE: 02/02/2020 STATUS: PRE SD FAX #: [phone] RADIOLOGY NO: PAGE 1 Signed ReportPROTHROMBIN [id number] 16:09:00 Test Item Value Reference Range Interpretation [...] ON ANTICOAGULANTS: YLIST ANTICOAGULANTS: PlavixPTT ACTIVATED 2020-02-02 16:09:00 Test Item Value Reference Range Interpretation Comments PTT ACTIVATED (test code = APTT) 31.5 SECONDS 25.1-36.5 N IS PATIENT ON ANTICOAGULANTS: YLIST ANTICOAGULANTS: PlavixPLT RESPONSE TO PLAVIX 2020-02-02 16:09:00 Test Item Value Reference Range Interpretation Comments PLT RESPONSE TO PLAVIX (test code = PRU 194-418 PLAVRES) IS PATIENT ON ANTICOAGULANTS: YLIST ANTICOAGULANTS: PlavixCOMPREHENSIVE METABOLIC [id number] 16:08:00 Test Item Value Reference Range Interpretation [...] code = UNITS/L 38-126 ALKP) COMPREHENSIVE METABOLIC [id number] 16:07:00 Test Item Value Reference Range Interpretation [...] code = UNITS/L 38-126 ALKP) CBC W/AUTO [id number] 15:52:00 Test Item Value Reference Range Interpretation [...] 0.00 K/mm3 0.0-0.1 N NRBC#) GLUCOSE BEDSIDE [id number] 10:33:00 Test Item Value Reference Range Interpretation Comments GLUCOSE BEDSIDE TESTING 330 MG/DL 60-99 Noti fied Physician~ (test code = GLUBED) BASIC METABOLIC [id number] 05:51:00 Test Item Value Reference Range Interpretation [...] 01/21/20 AT 054 2 BY Stuart Kim er BLOOD UREA NITROGEN 26 MG/DL 9-20 H [...] 0-189 mg/dL VERY HIGH...... ...>/= 190 mg/dL [id number] 05:51:00 Test Item Value Reference Range Interpretation Comments MAGNESIUM (test code = MAG) 2.0 MG/DL 1.6-2.3 N PROTHROMBIN [id number] 05:43:00 Test Item Value Reference Range Interpretation [...] recurrent syste agustin embolism. 3.0 - 4.5 Comments to Operations/Dispatch: WILL BRING TO LABPTT [id number] 05:43:00 Test Item Value Reference Range Interpretation Comments PTT ACTIVATED (test code = APTT) 28.9 SECONDS 25.1-36.5 N Comments to Operations/Dispatch: WILL BRING TO LABBASIC METABOLIC [id number] 05:42:00 Test Item Value Reference Range Interpretation [...] 01/21/20 AT 054 2 BY Stuart Kim er BLOOD UREA NITROGEN 26 MG/DL 9-20 H [...] LDL (test MG/DL 0-99 code = LDL) [id number] 05:42:00 Test Item Value Reference Range Interpretation Comments MAGNESIUM (test code = MAG) 2.0 MG/DL 1.6-2.3 N CBC W/AUTO [id number] 05:41:00 Test Item Value Reference Range Interpretation [...] 0.00 K/mm3 0.0-0.1 N NRBC#) BASIC METABOLIC [id number] 05:38:00 Test Item Value Reference Range Interpretation [...] LDL (test code = LDL) MG/DL 0-99 [id number] 05:38:00 Test Item Value Reference Range Interpretation Comments MAGNESIUM (test code = MAG) MG/DL 1.6-2.3 BASIC METABOLIC [id number] 05:36:00 Test Item Value Reference Range Interpretation [...] LDL (test code = LDL) MG/DL 0-99 [id number] 05:36:00 Test Item Value Reference Range Interpretation Comments MAGNESIUM (test code = MAG) MG/DL 1.6-2.3
--- NOTE | 2021-10-25 15:38 | RAD REPORT ---
EXAM DESCRIPTION: [place] Single View10/25/2021 3:31 pm CLINICAL HISTORY: Shortness of breath COMPARISON: 2019 FINDINGS: The lungs appear clear of acute infiltrate. Upper lobe vessels are prominent indicative o f pulmonary venous hypertension. The heart is moderately enlarged
[2021-10-25 18:11] LABS: Absolute Lymphocytes (CBC) 1.1 K/uL (0.7-4.9); Basophils % 1.4 % (0-1.3); Hematocrit 31.7 % (39.6-49.0); Lymphocytes % 13.7 % (15.3-44.8); MPV 7.2 fL (7.6-11.3); RBC Red Blood Cell Count 3.57 M/uL (4.33-5.43)
[2021-10-25 18:14] LABS: Protime INR 1.34
[2021-10-25 18:35] LABS: Albumin 3.5 g/dL (3.4-5.0); Bilirubin Direct 0.3 mg/dL (0-0.2); Potassium 4.2 mmol/L (3.5-5.1); Protein, Total 8.5 g/dL (6.4-8.2)
[2021-10-25] MEDS ORDERED: FUROSEMIDE 40 MG/4 ML VIAL ONE (18:49)
--- NOTE | 2021-10-25 20:21 | ER ---
Nurse's Notes [facility] Name: Magdy Payan Age: 66 yrs Sex: Male : 1955 Arrival Date: 10/25/2021 Time: 14:00 Bed 18 Private MD: Diagnosis: Unspecified combined systolic (congestive) and diastolic (congestive) heart failure Presentation: 10/25 14:22 Chief complaint: Patient states: SOB x 2 months. 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 Pt states, "I think I have fluid build up.". Coronavirus screen: Client denies travel out of the [place] in the last 14 days. Ebola Screen: Patient denies exposure to infectious person. Patient denies travel to an Ebola-affected area in the 21 days before illness onset. Initial Sepsis Screen: Does the patient meet any 2 criteria? No. Patient's initial sepsis screen is negative. Does the patient have a suspected source of infection? No. Patient's initial sepsis screen is negative. Risk Assessment: Do you want to hurt yourself or someone else? Patient reports no desire to harm self or others. Onset of symptoms was July 2021. 14:22 Method Of Arrival: Ambulatory ss 14:22 Acuity: ANTONIO 3 ss Historical: - Allergies: 14:24 NKDA; ss - PMHx: 14:24 Arthritis; Diabetes - NIDDM; Hypertension; Congestive heart failure; ss - Immunization history:: Client reports receiving the 2nd dose of the Covid vaccine. - Social history:: Smoking status: Patient denies any tobacco usage or history of. Screenin:28 Abuse screen: Denies threats or abuse. Denies injuries from another. Nutritional ss screening: No deficits noted. Tuberculosis screening: Never had TB. Fall Risk None identified. Assessment: 17:28 General: Appears in no apparent distress. Behavior is calm, cooperative, Denies fever, ss feeling ill. Pain: Denies pain. Neuro: Level of Consciousness is awake, alert, obeys commands, Oriented to person, place, time, situation. Cardiovascular: Capillary refill < 3 seconds is brisk in bilateral fingers Patient's skin is warm and dry. Cardiovascular: Pulses are palpable in right radial artery, right posterior tibial artery, left radial artery and left posterior tibial artery Chest pain is denied. Respiratory: Reports shortness of breath on exertion since x 2 months, has gotten worse over the past few days Airway is patent Respiratory effort is even, unlabored, Respiratory pattern is regular, symmetrical, Breath sounds are diminished in left posterior lower lobe and right posterior lower lobe. GI: Patient currently denies abdominal pain, diarrhea, nausea, vomiting. Derm: Skin is pink, warm \\T\\ dry. normal. Musculoskeletal: Circulation, motion, and sensation intact. Range of motion: intact in all extremities. Vital Signs: 14:22 Resp 22; Weight 104.33 kg; Height 5 ft. 9 in. (175.26 cm); Pain 0/10; ss 14:26 BP 129 / 70; Pulse 80; Resp 20; Temp 98.3(O); Pulse Ox 93% ; Weight 104.33 kg; Height 5 ss ft. 9 in. (175.26 cm); 21:42 BP 124 / 83; Pulse 76; Resp 18; Temp 98.9; Pulse Ox 96% ; kb 14:26 Body Mass Index 33.96 (104.33 kg, 175.26 cm) ss ED Course: 14:00 Patient arrived in ED. mr 14:24 Triage completed. ss 14:24 Arm band placed on right wrist. ss 15:32 XRAY Chest (1 view) In Process Unspecified. EDMS 17:22 [facility] Jasmine [facility]-C [facility] kb 17:22 Todd Martinez MD is Attending Physician. kb 17:28 Patient has correct armband on for positive identification. Bed in low position. Call ss light in reach. Side rails up X 1. conveyor monitor on. Pulse ox on. NIBP on. Warm blanket given. 17:32 Dilia Malcolm, GARCIA is Primary Nurse. ss 18:00 Inserted saline lock: 20 gauge in right antecubital area, using aseptic technique. ss ,using aseptic technique. Insertion by Sravan Jasmine NP Blood collected. 19:10 COVID-19 SARS RT PCR (Document "Date of Onset" if Symptomatic) Sent. [facility] 19:10 Initial lab(s) drawn, by ED staff, sent to lab. COVID swab sent to lab. [facility] 20:20 No provider procedures requiring assistance completed. IV discontinued, intact, ss bleeding controlled, No redness/swelling at site. Pressure dressing applied. Administered Medications: 19:03 Drug: Lasix (furosemide) 40 mg Route: IVP; Site: right antecubital; 20:20 Follow up: Response: No adverse reaction Outcome: 20:20 AMA AMA form signed ss 20:20 Condition: stable 20:20 Instructed on follow up and referral plans. 20:22 Patient left the ED. Signatures: Dispatcher [employer] EDSravan Forde, MOIZ BABB-Kathi Dominguez Shelby, RN RN Shawanda Montiel [facility]
--- NOTE | 2021-10-25 20:22 | EDPHYS ---
Physician Documentation [facility] Name: Magdy Payan Age: 66 yrs Sex: Male : 1955 Arrival Date: 10/25/2021 Time: 14:00 Bed 18 Private MD: ED Physician Todd Martinez HPI: 10/25 19:11 This 66 yrs old Male presents to ER via Ambulatory with complaints of kb Breathing Difficulty. 19:11 The patient has shortness of breath with light activity. Onset: The symptoms/episode kb began/occurred 3 month(s) ago. Duration: The symptoms are intermittent. The patient's shortness of breath is aggravated by exertion. Associated signs and symptoms: The patient has no apparent associated signs or symptoms. Severity of symptoms: At their worst the symptoms were moderate in the emergency department the symptoms are unchanged. The patient has not experienced similar symptoms in the past. The patient has not recently seen a physician. Pt reports shortness of breath on exertion for 3 months. 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 States he came today because he is tired of being short of breath when he tries to do anything. Historical: - Allergies: 14:24 NKDA; ss - PMHx: 14:24 Arthritis; Diabetes - NIDDM; Hypertension; Congestive heart failure; ss - Immunization history:: Client reports receiving the 2nd dose of the Covid vaccine. - Social history:: Smoking status: Patient denies any tobacco usage or history of. ROS: 19:10 Constitutional: Negative for fever, chills, and weight loss. kb 19:10 Respiratory: Positive for dyspnea on exertion, shortness of breath. 19:10 All other systems are negative. Exam: 19:10 Constitutional: This is a well developed, well nourished patient who is awake, alert, kb and in no acute distress. Head/Face: Normocephalic, atraumatic. ENT: Moist Mucous membranes Cardiovascular: Regular rate and rhythm with a normal S1 and S2. No gallops, murmurs, or rubs. No pulse deficits. Respiratory: Respirations even and unlabored. No increased work of breathing, no retractions or nasal flaring. Abdomen/GI: Soft, non-tender. No distention Skin: Warm, dry with normal turgor. Normal color. MS/ Extremity: Pulses equal, no cyanosis. Neurovascular intact. Full, normal range of motion. Neuro: Awake and alert, GCS 15, oriented to person, place, time, and situation. Moves all extremities. Normal gait. Psych: Awake, alert, with orientation to person, place and time. Behavior, mood, and affect are within normal limits. Vital Signs: 14:22 Resp 22; Weight 104.33 kg; Height 5 ft. 9 in. (175.26 cm); Pain 0/10; ss 14:26 BP 129 / 70; Pulse 80; Resp 20; Temp 98.3(O); Pulse Ox 93% ; Weight 104.33 kg; Height 5 ss ft. 9 in. (175.26 cm); 21:42 BP 124 / 83; Pulse 76; Resp 18; Temp 98.9; Pulse Ox 96% ; kb 14:26 Body Mass Index 33.96 (104.33 kg, 175.26 cm) ss MDM: 17:28 Patient medically screened. kb 19:03 Data reviewed: vital signs, nurses notes. Data interpreted: Pulse oximetry: on room air kb is 96 %. Interpretation: normal. 19:06 Counseling: I had a detailed discussion with the patient and/or guardian regarding: the kb historical points, exam findings, and any diagnostic results supporting the discharge/admit diagnosis, lab results, radiology results, the need for further work-up and treatment in the hospital. ED course: Pt educated on d-dimer elevation and need for CT to rule out PE, but unable to do so due to elevated creatinine so I will admit him to have VQ scan done. Pt states "I don't want to stay here. I will call my dr on Thursday and go see him. I should be good with what you gave me." Will discharge pt home with strict return precautions. 20:01 ED course: After discussing EKG with Dr fowler, he recommends pt be admitted or he will kb have to sign out AMA. Discussed this with pt. Pt still wants to go home. 10/25 14:26 Order name: COVID-19 SARS RT PCR (Document "Date of Onset" if Symptomatic) 10/25 14:27 Order name: SARS-COV-2 RT PCR; Complete Time: 17:23 EDMS 10/25 17:40 Order name: Basic Metabolic Panel; Complete Time: 18:37 kb 10/25 17:40 Order name: CBC with Diff; Complete Time: 18:14 kb 10/25 17:40 Order name: LFT's; Complete Time: 18:37 kb 10/25 17:40 Order name: Magnesium; Complete Time: 18:37 kb 10/25 14:25 Order name: XRAY Chest (1 view); Complete Time: 17:23 ss 10/25 17:40 Order name: NT PRO-BNP; Complete Time: 18:37 kb 10/25 17:40 Order name: PT-INR; Complete Time: 18:31 kb 10/25 17:40 Order name: EKG; Complete Time: 17:41 kb 10/25 18:01 Order name: D-Dimer; Complete Time: 18:59 em1 10/25 17:40 Order name: Cardiac monitoring; Complete Time: 18:26 kb 10/25 17:40 Order name: EKG - Nurse/Tech; Complete Time: 19:07 kb 10/25 17:40 Order name: IV Saline Lock; Complete Time: 18:57 kb 10/25 17:40 Order name: Labs collected and sent; Complete Time: 18:26 kb 10/25 17:40 Order name: O2 Per Protocol; Complete Time: 18:26 kb 10/25 17:40 Order name: O2 Sat Monitoring; Complete Time: 18:26 kb Administered Medications: 19:03 Drug: Lasix (furosemide) 40 mg Route: IVP; Site: right antecubital; ss 20:20 Follow up: Response: No adverse reaction ss Disposition Summary: 10/25/21 20:21 Left Against Medical Advice Location: Home kb Problem: new kb Symptoms: are unchanged kb Condition: Stable kb Diagnosis - Unspecified combined systolic (congestive) and diastolic (congestive) heart failure kb Followup: kb - With: Emergency Department - When: As needed - Reason: Worsening of condition Followup: kb - With: Private Physician - When: 2 - 3 days - Reason: Recheck today's complaints, Continuance of care, Re-evaluation by your physician Discharge Instructions: - Discharge Summary Sheet kb - Heart Failure, Diagnosis, [id number] kb Addendum: 10/27/2021 09:15 Co-signature as Attending Physician, Todd Martinez MD I agree with the assessment and k dr plan of care. Signatures: Dispatcher [employer] EDMS Kenroy Fiordaliza, ASSOCIATE CHIEF NURSE-C ASSOCIATE CHIEF NURSE-Ckb Todd Martinez MD MD [facility] Dilia Malcolm, GARCIA RN ss Corrections: (The following items were deleted from the chart) 10/25 19:02 19:00 Chest For Pe Angio ordered. EDNM EDNM 19:10 19:06 ED course: Pt educated on d-dimer elevation and need for CT to rule out PE, but kb unable to do so due to elevated creatinine so I will admit him to have VQ scan done. Pt states "I don't want to stay here. I will call my dr on Thursday and go see him. I should be good with what you gave me.". kb 19:19 19:00 Chest For PE Angio+CT.RAD.BRZ ordered. EDNM EDNM
[2021-10-25 20:37] VITALS: BP 129/70; TEMP 98.3; O2SAT 93
== END 2021-10-25 20:22 | disposition left against medical advice (07) ==
LOC: ER 13:56
DX: I50.40 Unspecified combined systolic (congestive) and diastolic (congestive) heart failure (principal); I10 Essential (primary) hypertension; Z20.822 Contact with and (suspected) exposure to COVID-19
CPT/HCPCS: 93005; 85025; 80048; 36415; 83735; 85610; 85379; 80076; 83880; 71045; 96374; 99284; U0003; J1940

== ENCOUNTER 2022-02-27 11:20 | Observation (INO) | payer OTHER ==
--- OUTSIDE RECORDS SUMMARY | 2022-02-27 11:25 | XMS REPORT | Continuity of Care Document ---
:1955 Author Organization [facility] t Address [address] [place] [address] Care Team Providers Name Role Phone Simon [...] DA Active U 2020-0 [facility] 00:00: [address] No Known DA Active U 2020-0 [facility] 00:00: [address] Medications This patient has no known medications. Procedures Procedure Date / Time Performed Performing Clinician Sridevi torres [id number] 2020-02-03 00:00:00 [facility] [id number] 2020-02-03 00:00:00 [facility] [id number] 2020-02-03 00:00:00 [facility] [id number] 2020-02-03 00:00:00 [facility] [id number] 2020-02-03 00:00:00 [facility] [id number] 2020-02-03 00:00:00 [facility] [id number] 2020-02-03 00:00:00 [facility] [id number] 2020-02-03 00:00:00 [facility] [id number] 2020-02-03 00:00:00 [facility] [id number] 2020-02-03 00:00:00 [facility] Encounters Start End Encounter Admission Attending Care Care Encounter Source Date/Time Date/Time Type Type Clinicians Facility Department ID 2020-02-02 Inpatient EL Russell, [facility] OUTD [id number] [facility] 14:[facility]:[address] [facility] 2020-01-21 Inpatient BERRY Castellanos, [facility] SURG [id number] [facility] 07:00:[id number] [facility] 2020-02-03 2020-02-03 Outpatient KIRTI WellsWU SURG [id number] [facility] 08:00:00 08:00:[address] [facility] Results Test Description Test Time Test Comments Results Result Comments Source GLUCOSE BEDSIDE TESTING 2020-02-08 11:55:00 Test Item Value Reference Range Interpretation Comme nts GLUCOSE BEDSIDE TESTING (test code = GLUBED) 137 MG/DL 60-99 H GLUCOSE BEDSIDE [id number] 08:08:00 Test Item Value Reference Range Interpretation Comments GLUCOSE BEDSIDE TESTING (test code 165 MG/DL 60-99 H = GLUBED) BASIC METABOLIC [id number] 06:52:00 Test Item Value Reference Range Interpretation [...] 8.6 MG/DL 8.4-10.2 N CA) BASIC METABOLIC [id number] 06:50:00 Test Item Value Reference Range Interpretation [...] code = MG/DL 8.7-9.7 CA) BASIC METABOLIC [id number] 06:50:00 Test Item Value Reference Range Interpretation [...] code = MG/DL 8.7-9.7 CA) BASIC METABOLIC [id number] 06:47:00 Test Item Value Reference Range Interpretation [...] code = CA) MG/DL 8.7-9.7 CBC W/AUTO [id number] 06:29:00 Test Item Value Reference Range Interpretation [...] 0.05 K/mm3 0.0-0.1 N NRBC#) GLUCOSE BEDSIDE [id number] 20:18:00 Test Item Value Reference Range Interpretation Comments GLUCOSE BEDSIDE TESTING (test code 149 MG/DL 60-99 H = GLUBED) GLUCOSE BEDSIDE [id number] 16:48:00 Test Item Value Reference Range Interpretation Comments GLUCOSE BEDSIDE TESTING (test code 164 MG/DL 60-99 H = GLUBED) CBC W/AUTO [id number] 15:10:00 Test Item Value Reference Range Interpretation [...] 0.04 K/mm3 0.0-0.1 N NRBC#) BASIC METABOLIC [id number] 13:50:00 Test Item Value Reference Range Interpretation [...] 8.2 MG/DL 8.4-10.2 L CA) BASIC METABOLIC [id number] 13:48:00 Test Item Value Reference Range Interpretation [...] code = MG/DL 8.7-9.7 CA) BASIC METABOLIC [id number] 13:46:00 Test Item Value Reference Range Interpretation [...] code = CA) MG/DL 8.7-9.7 GLUCOSE BEDSIDE [id number] 09:47:00 Test Item Value Reference Range Interpretation Comments GLUCOSE BEDSIDE TESTING (test code 237 MG/DL 60-99 H = GLUBED) - XR CHEST [id number] 08:13:00 Patient Name: AKILAH ANDRES Unit No: [id number] EXAMS: CPT CODE: [id number] XR CHEST 1V 63125 EXAM: XR Chest 1 View INDICATION: S/P [...] t.SDR.EB14 Orig Print D/T: S: 02/07/2020 (817) [facility] NAME: AKILAH ANDRES [id number] PHYS: [place] [address] : 1955 AGE: 64 SEX: M LOC: Z.364 A PHONE #: [phone] EXAM DATE: 02/07/2020 STATUS: ADM IN FAX #: [phone] RADIOLOGY NO: PAGE 1 Signed ReportGLUCOSE BEDSIDE [id number] 08:07:00 Test Item Value Reference Range Interpretation Comments GLUCOSE BEDSIDE TESTING (test code 292 MG/DL 60-99 H = GLUBED) GLUCOSE BEDSIDE [id number] 03:04:00 Test Item Value Reference Range Interpretation Comments GLUCOSE BEDSIDE TESTING (test code 187 MG/DL 60-99 H = GLUBED) GLUCOSE BEDSIDE [id number] 19:58:00 Test Item Value Reference Range Interpretation Comments GLUCOSE BEDSIDE TESTING (test code 233 MG/DL 60-99 H = GLUBED) GLUCOSE BEDSIDE [id number] 14:17:00 Test Item Value Reference Range Interpretation Comments GLUCOSE BEDSIDE TESTING (test code 256 MG/DL 60-99 H = GLUBED) - XR CHEST [id number] 10:51:00 Patient Name: AKILAH ANDRES Unit No: [id number] EXAMS: CPT CODE: [id number] XR CHEST 1V 63505 Dictation location: U19. CHEST, FRONTAL VIEW HI [...] MD CC: Case Castellanos MD; Sara Dillon [employer] Technologist: FORMERLY [facility] STUDENT ; Akilah Caban, RT(R) Transcrpt Date/Tm/Trnsp: 02/06/2020 (1051) t.SDR.SP17 Orig Print D/T: S: 02/06/2020 (1054) [facility] NAME: AKILAH ANDRES [id number] PHYS: GABRIELE. Santana,[place] [address] : 1955 AGE: 64 SEX: M LOC: Z.SI02 A PHONE #: [phone] EXAMDATE: 02/06/2020 STATUS: ADM IN FAX #: [phone] RADIOLOGY NO: PAGE1 Signed ReportGLUCOSE BEDSIDE [id number] 09:54:00 Test Item Value Reference Range Interpretation Comments GLUCOSE BEDSIDE TESTING (test code 222 MG/DL 60-99 H = GLUBED) GLUCOSE BEDSIDE [id number] 09:53:00 Test Item Value Reference Range Interpretation Comments GLUCOSE BEDSIDE TESTING (test code 162 MG/DL 60-99 H = GLUBED) GLUCOSE BEDSIDE [id number] 09:50:00 Test Item Value Reference Range Interpretation Comments GLUCOSE BEDSIDE TESTING (test code 135 MG/DL 60-99 H = GLUBED) GLUCOSE BEDSIDE [id number] 09:49:00 Test Item Value Reference Range Interpretation Comments GLUCOSE BEDSIDE TESTING (test code 180 MG/DL 60-99 H = GLUBED) GLUCOSE BEDSIDE [id number] 09:35:00 Test Item Value Reference Range Interpretation Comments GLUCOSE BEDSIDE TESTING (test code 231 MG/DL 60-99 H = GLUBED) - XR CHEST [id number] 07:52:00 Patient Name: AKILAH ANDRES Unit No: [id number] EXAMS: CPT CODE: [id number] XR CHEST 1V 71663 EXAM: XR Chest 1 View INDICATION: S/P [...] t.SDR.EB14 Orig Print D/T: S: 02/06/2020 (075) [facility] NAME: AKILAH ANDRES [id number] PHYS: [place] [address] : 1955 AGE: 64 SEX: M LOC: Z.SI02 A PHONE #: [phone] EXAM DATE: 02/06/2020 STATUS: ADM IN FAX #: [phone] RADIOLOGY NO: PAGE 1 Signed ReportBASIC METABOLIC [...] code = 8.4 MG/DL 8.4-10.2 N CA) [id number] 05:16:00 Test Item Value Reference Range Interpretation Comments MAGNESIUM (test code = MAG) 1.9 MG/DL 1.6-2.3 N BASIC METABOLIC [id number] 05:14:00 Test Item Value Reference Range Interpretation [...] CALCIUM (test code = MG/DL 8.7-9.7 CA) [id number] 05:14:00 Test Item Value Reference Range Interpretation Comments MAGNESIUM (test code = MAG) MG/DL 1.6-2.3 BASIC METABOLIC [id number] 05:13:00 Test Item Value Reference Range Interpretation [...] CALCIUM (test code = CA) MG/DL 8.7-9.7 [id number] 05:13:00 Test Item Value Reference Range Interpretation Comments MAGNESIUM (test code = MAG) MG/DL 1.6-2.3 BASIC METABOLIC [id number] 05:12:00 Test Item Value Reference Range Interpretation [...] CALCIUM (test code = CA) MG/DL 8.7-9.7 [id number] 05:12:00 Test Item Value Reference Range Interpretation Comments MAGNESIUM (test code = MAG) MG/DL 1.6-2.3 PROTHROMBIN [id number] 05:04:00 Test Item Value Reference Range Interpretation [...] syste agustin embolism. 3.0 - 4.5 PTT [id number] 05:04:00 Test Item Value Reference Range Interpretation Comments PTT ACTIVATED (test code = APTT) 23.7 SECONDS 25.1-36.5 L CBC W/AUTO [id number] 04:58:00 Test Item Value Reference Range Interpretation [...] 0.00 K/mm3 0.0-0.1 N NRBC#) GLUCOSE BEDSIDE [id number] 17:06:00 Test Item Value Reference Range Interpretation Comments GLUCOSE BEDSIDE TESTING 385 MG/DL 60-99 HH Noti fied Physician~ (test code = GLUBED) GLUCOSE BEDSIDE [id number] 12:54:00 Test Item Value Reference Range Interpretation Comments GLUCOSE BEDSIDE TESTING 357 MG/DL 60-99 HH Noti fied Physician~ (test code = GLUBED) - XR CHEST [id number] 08:06:00 Patient Name: AKILAH ANDRES Unit No: [id number] EXAMS: CPT CODE: [id number] XR CHEST 1V 73817 EXAM: CHEST ONE VIEW INDICATION: S/P CABG [...] 16 Orig Print D/T: S: 02/05/2020 (0809) [facility] NAME: AKILAH ANDRES [address] PHYS: [place] [address] : 1955 AGE: 64 SEX: M LOC: Z.SI02 APHONE #: [phone] EXAM DATE: 02/05/2020 STATUS: ADM IN FAX #: [phone] RADIOLOGY NO: PAGE 1 Signed ReportBASIC METABOLIC [id number] 05:34:00 Test Item Value Reference Range Interpretation [...] code = 8.1 MG/DL 8.4-10.2 L CA) [id number] 05:34:00 Test Item Value Reference Range Interpretation Comments MAGNESIUM (test code = MAG) 1.9 MG/DL 1.6-2.3 N BASIC METABOLIC [id number] 05:33:00 Test Item Value Reference Range Interpretation [...] code = 8.1 MG/DL 8.4-10.2 L CA) [id number] 05:33:00 Test Item Value Reference Range Interpretation Comments MAGNESIUM (test code = MAG) MG/DL 1.6-2.3 BASIC METABOLIC [id number] 05:32:00 Test Item Value Reference Range Interpretation [...] CALCIUM (test code = MG/DL 8.7-9.7 CA) [id number] 05:32:00 Test Item Value Reference Range Interpretation Comments MAGNESIUM (test code = MAG) MG/DL 1.6-2.3 BASIC METABOLIC [id number] 05:30:00 Test Item Value Reference Range Interpretation [...] CALCIUM (test code = CA) MG/DL 8.7-9.7 [id number] 05:30:00 Test Item Value Reference Range Interpretation Comments MAGNESIUM (test code = MAG) MG/DL 1.6-2.3 PROTHROMBIN [id number] 05:25:00 Test Item Value Reference Range Interpretation [...] syste agustin embolism. 3.0 - 4.5 PTT [id number] 05:25:00 Test Item Value Reference Range Interpretation Comments PTT ACTIVATED (test code = APTT) 23.5 SECONDS 25.1-36.5 L CBC W/AUTO [id number] 05:12:00 Test Item Value Reference Range Interpretation [...] 0.00 K/mm3 0.0-0.1 N NRBC#) GLUCOSE BEDSIDE [id number] 21:57:00 Test Item Value Reference Range Interpretation Comments GLUCOSE BEDSIDE TESTING (test code 169 MG/DL 60-99 H = GLUBED) GLUCOSE BEDSIDE [id number] 19:33:00 Test Item Value Reference Range Interpretation Comments GLUCOSE BEDSIDE TESTING (test code 109 MG/DL 60-99 H = GLUBED) GLUCOSE BEDSIDE [id number] 18:09:00 Test Item Value Reference Range Interpretation Comments GLUCOSE BEDSIDE TESTING (test code 159 MG/DL 60-99 H = GLUBED) GLUCOSE BEDSIDE [id number] 17:26:00 Test Item Value Reference Range Interpretation Comments GLUCOSE BEDSIDE TESTING (test code 187 MG/DL 60-99 H = GLUBED) GLUCOSE BEDSIDE [id number] 17:26:00 Test Item Value Reference Range Interpretation Comments GLUCOSE BEDSIDE TESTING (test code 182 MG/DL 60-99 H = GLUBED) GLUCOSE BEDSIDE [id number] 15:47:00 Test Item Value Reference Range Interpretation Comments GLUCOSE BEDSIDE TESTING (test code 202 MG/DL 60-99 H = GLUBED) GLUCOSE BEDSIDE [id number] 14:50:00 Test Item Value Reference Range Interpretation Comments GLUCOSE BEDSIDE TESTING (test code 219 MG/DL 60-99 H = GLUBED) GLUCOSE BEDSIDE [id number] 14:50:00 Test Item Value Reference Range Interpretation Comments GLUCOSE BEDSIDE TESTING (test code 206 MG/DL 60-99 H = GLUBED) GLUCOSE BEDSIDE [id number] 12:30:00 Test Item Value Reference Range Interpretation Comments GLUCOSE BEDSIDE TESTING (test code 228 MG/DL 60-99 H = GLUBED) GLUCOSE BEDSIDE [id number] 10:07:00 Test Item Value Reference Range Interpretation Comments GLUCOSE BEDSIDE TESTING (test code 155 MG/DL 60-99 H = GLUBED) GLUCOSE BEDSIDE [id number] 09:10:00 Test Item Value Reference Range Interpretation Comments GLUCOSE BEDSIDE TESTING (test code 173 MG/DL 60-99 H = GLUBED) GLUCOSE BEDSIDE [id number] 07:43:00 Test Item Value Reference Range Interpretation Comments GLUCOSE BEDSIDE TESTING (test code 162 MG/DL 60-99 H = GLUBED) - XR CHEST [id number] 07:38:00 Patient Name: AKILAH ANDRES Unit No: [id number] EXAMS: CPT CODE: [id number] XR CHEST 1V 42634 R16 EXAM: - XR CHEST 1V HISTORY: S/P CABG COMPARISON: 02/03/2020 FINDINGS: Interval removal of endotracheal tube. [place] catheter and right subclavian central line in [...] t.SDR.VB7 Orig Print D/T: S: 02/04/2020 (0741) [facility] NAME: AKILAH ANDRES [id number] PHYS: [place] [address] : 1955 AGE: 64 SEX: M LOC: Z.SI02 A PHONE #: [phone] EXAM DATE: 02/04/2020 STATUS: ADM IN FAX #: [phone] RADIOLOGY NO: PAGE 1 Signed ReportGLUCOSE BEDSIDE [id number] 06:44:00 Test Item Value Reference Range Interpretation Comments GLUCOSE BEDSIDE TESTING (test code 160 MG/DL 60-99 H = GLUBED) GLUCOSE BEDSIDE [id number] 06:44:00 Test Item Value Reference Range Interpretation Comments GLUCOSE BEDSIDE TESTING (test code 151 MG/DL 60-99 H = GLUBED) GLUCOSE BEDSIDE [id number] 06:44:00 Test Item Value Reference Range Interpretation Comments GLUCOSE BEDSIDE TESTING (test code 162 MG/DL 60-99 H = GLUBED) GLUCOSE BEDSIDE [id number] 06:44:00 Test Item Value Reference Range Interpretation Comments GLUCOSE BEDSIDE TESTING (test code 201 MG/DL 60-99 H = GLUBED) GLUCOSE BEDSIDE [id number] 06:44:00 Test Item Value Reference Range Interpretation Comments GLUCOSE BEDSIDE TESTING (test code 212 MG/DL 60-99 H = GLUBED) GLUCOSE BEDSIDE [id number] 06:44:00 Test Item Value Reference Range Interpretation Comments GLUCOSE BEDSIDE TESTING (test code 168 MG/DL 60-99 H = GLUBED) GLUCOSE BEDSIDE [id number] 06:44:00 Test Item Value Reference Range Interpretation Comments GLUCOSE BEDSIDE TESTING (test code 161 MG/DL 60-99 H = GLUBED) BASIC METABOLIC [id number] 04:38:00 Test Item Value Reference Range Interpretation [...] code = 8.6 MG/DL 8.4-10.2 N CA) [id number] 04:38:00 Test Item Value Reference Range Interpretation Comments MAGNESIUM (test code = MAG) 2.1 MG/DL 1.6-2.3 PROTHROMBIN [id number] 04:34:00 Test Item Value Reference Range Interpretation [...] syste agustin embolism. 3.0 - 4.5 PTT [id number] 04:34:00 Test Item Value Reference Range Interpretation Comments PTT ACTIVATED (test code = APTT) 23.3 SECONDS 25.1-36.5 L BASIC METABOLIC [id number] 04:34:00 Test Item Value Reference Range Interpretation [...] CALCIUM (test code = CA) MG/DL 8.7-9.7 [id number] 04:34:00 Test Item Value Reference Range Interpretation Comments MAGNESIUM (test code = MAG) MG/DL 1.6-2.3 CBC W/AUTO [id number] 04:22:00 Test Item Value Reference Range Interpretation [...] K/mm3 0.0-0.1 N NRBC#) - XR CHEST [id number] 18:08:00 Patient Name: AKILAH ANDRES Unit No: [id number] EXAMS: CPT CODE: [id number] XR CHEST 1V 07297 Site ID: [id number] HISTORY: Status post CABG COMPARISON: Chest x-ray of the prior day FINDINGS: Endotracheal tube terminates appropriately, approximately 4.5 cm above the michelle. Right subclavian line is at the SVC, [place] at the right main pulmonary artery. The [...] Anders, RT(R) Transcrpt Date/Tm/Trnsp: 02/03/2020 (1808) t.SDR.AJP6 [facility] NAME: AKILAH ANDRES [id number] [address] PHYS: [place] [address] : 1955 AGE: 64 SEX: M LOC: Z.SI02 A PHONE #: [phone] EXAM DATE: 02/03/2020 STATUS: ADM IN FAX #: [phone] RADIOLOGY NO: PAGE 1 Signed ReportBASIC METABOLIC [id number] 17:14:00 Test Item Value Reference Range Interpretation [...] code = 8.6 MG/DL 8.4-10.2 N CA) [id number] 17:14:00 Test Item Value Reference Range Interpretation Comments MAGNESIUM (test code = MAG) 2.7 MG/DL 1.6-2.3 H BASIC METABOLIC [id number] 17:11:00 Test Item Value Reference Range Interpretation [...] CALCIUM (test code = MG/DL 8.7-9.7 CA) [id number] 17:11:00 Test Item Value Reference Range Interpretation Comments MAGNESIUM (test code = MAG) MG/DL 1.6-2.3 BASIC METABOLIC [id number] 17:08:00 Test Item Value Reference Range Interpretation [...] CALCIUM (test code = CA) MG/DL 8.7-9.7 [id number] 17:08:00 Test Item Value Reference Range Interpretation Comments MAGNESIUM (test code = MAG) MG/DL 1.6-2.3 PROTHROMBIN [id number] 17:05:00 Test Item Value Reference Range Interpretation [...] syste agustin embolism. 3.0 - 4.5 PTT [id number] 17:05:00 Test Item Value Reference Range Interpretation Comments PTT ACTIVATED (test code = APTT) 28.8 SECONDS 25.1-36.5 N CBC W/AUTO [id number] 16:58:00 Test Item Value Reference Range Interpretation [...] 0.00 K/mm3 0.0-0.1 N NRBC#) ARTERIAL BLOOD [id number] 16:54:00 Test Item Value Reference Range Interpretation [...] code = COHBGFFIO2) 100 % GLUCOSE BEDSIDE [id number] 16:50:00 Test Item Value Reference Range Interpretation Comments GLUCOSE BEDSIDE TESTING (test code 198 MG/DL 60-99 H = GLUBED) BASIC METABOLIC [id number] 15:44:00 Test Item Value Reference Range Interpretation [...] = 9.1 MG/DL 8.4-10.2 CA) BASIC METABOLIC [id number] 15:42:00 Test Item Value Reference Range Interpretation [...] (test code = MG/DL 8.7-9.7 CA) PROTHROMBIN [id number] 15:40:00 Test Item Value Reference Range Interpretation [...] syste agustin embolism. 3.0 - 4.5 PTT [id number] 15:40:00 Test Item Value Reference Range Interpretation Comments PTT ACTIVATED (test code = APTT) 27.0 SECONDS 25.1-36.5 N BASIC METABOLIC [id number] 15:39:00 Test Item Value Reference Range Interpretation [...] code = CA) MG/DL 8.7-9.7 BASIC METABOLIC [id number] 15:39:00 Test Item Value Reference Range Interpretation [...] code = CA) MG/DL 8.7-9.7 BASIC METABOLIC [id number] 15:39:00 Test Item Value Reference Range Interpretation [...] code = CA) MG/DL 8.7-9.7 CBC W/AUTO [id number] 15:33:00 Test Item Value Reference Range Interpretation [...] 0.00 K/mm3 0.0-0.1 N NRBC#) BASIC METABOLIC [id number] 14:44:00 Test Item Value Reference Range Interpretation [...] MG/DL 8.4-10.2 L CA) OR 5BASIC METABOLIC [id number] 14:40:00 Test Item Value Reference Range Interpretation [...] = CA) MG/DL 8.7-9.7 OR 5BASIC METABOLIC [id number] 14:39:00 Test Item Value Reference Range Interpretation [...] = CA) MG/DL 8.7-9.7 OR 5CBC W/AUTO [id number] 14:23:00 Test Item Value Reference Range Interpretation [...] = 0.00 K/mm3 0.0-0.1 N NRBC#) OR [id number] 12:48:00 Test Item Value Reference Range Interpretation Comments POTASSIUM (test code = K) 4.6 MMOL/L 3.5-5.1 N CALL RESULTS TO EXT 8482 [id number] 12:48:00 Test Item Value Reference Range Interpretation Comments GLUCOSE (test code = 334 MG/DL 74-106 HH CALLED TO ROBBIN.D& GLU) READBACK ON 05/19 AT 1248 BY Delmar Moreno CALL RESULTS TO EXT 8482 [id number] 12:41:00 Test Item Value Reference Range Interpretation Comments POTASSIUM (test code = K) 4.6 MMOL/L 3.5-5.1 N CALL RESULTS TO EXT 8482 [id number] 12:41:00 Test Item Value Reference Range Interpretation Comments GLUCOSE (test code = GLU) MG/DL 74-106 CALL RESULTS TO EXT 8482 HGB [id number] 12:27:00 Test Item Value Reference Range Interpretation Comments HEMOGLOBIN (test code = HGB) 11.5 G/DL 12.4-16.7 L HEMATOCRIT (test code = HCT) 32.1 % 35.9-49.5 L CBC W/AUTO [id number] 10:47:00 Test Item Value Reference Range Interpretation [...] = 0.00 K/mm3 0.0-0.1 N NRBC#) CALL *49339RQDXL METABOLIC [id number] 10:47:00 Test Item Value Reference Range Interpretation [...] 8.5 MG/DL 8.4-10.2 N CA) GLUCOSE BEDSIDE [id number] 09:17:00 Test Item Value Reference Range Interpretation Comments GLUCOSE BEDSIDE TESTING (test code 279 MG/DL 60-99 H = GLUBED) BASIC METABOLIC [id number] 08:14:00 Test Item Value Reference Range Interpretation [...] 9.5 MG/DL 8.4-10.2 N CA) ARTERIAL BLOOD [id number] 08:08:00 Test Item Value Reference Range Interpretation [...] code = COHBGFFIO2) 21 % BASIC METABOLIC [id number] 08:01:00 Test Item Value Reference Range Interpretation [...] code = MG/DL 8.7-9.7 CA) BASIC METABOLIC [id number] 07:59:00 Test Item Value Reference Range Interpretation [...] code = CA) MG/DL 8.7-9.7 BASIC METABOLIC [id number] 07:58:00 Test Item Value Reference Range Interpretation [...] code = CA) MG/DL 8.7-9.7 GLYCOSYLATED HEMOGLOBIN [id number] 17:47:00 Test Item Value Reference Range Interpretation [...] (test code = MBG) HIV 12 AB [id number] 17:35:00 Test Item Value Reference Range Interpretation Comments HIV 1 2 COMBO AG/AB SCREEN AB/AG NON REACTIVE NONREACTIVE (test code = XSY87SHUAQ) - CT CHEST W/O [id number] 17:16:00 Patient Name: AKILAH ANDRES Unit No: [id number] EXAMS: CPT CODE: [id number] CT CHEST W/O CONTRAST 34228 EXAM: - CT CHEST W/O CONTRAST HISTORY: [...] Management of Incidental Pulmonary Nodules Detected on [facility] NAME: AKILAH ANDRES [address] [address] PHYS: [place] [address] : 1955 AGE: 64 SEX: M LOC: Z.NVL PHONE #: [phone] EXAM DATE: 02/02/2020 STATUS: REG CLI FAX #: [phone] RAD #: D/C DT PAGE 1 Signed Report (CONTINUED) Patient Name: AKILAH ANDRES Unit No: [id number] EXAMS: CPT CODE: [id number] CT CHEST W/O CONTRAST 79255 <Continued> CT Images: From the [employer] [...] (171) [id number] [facility] NAME: AKILAH ANDRES [id number] PHYS: [place] [address] : 1955 AGE: 64 SEX: M LOC: AndrewTransmetricsL PHONE #: [phone] EXAM DATE: 02/02/2020 STATUS: REG CLI FAX#: [phone] RAD #: D/C DT PAGE 2Signed Report Patient Name: AKILAH ANDRES Unit No: [id number] EXAMS: CPT CODE: [id number] CT CHEST W/O CONTRAST 40813 <Continued> Orig Print D/T: S: 02/02/2020 (456) [facility] Leonardo NAME: AKILAH ANDRES [id number] [address] PHYS: [place] [address] : 1955 AGE: 64 SEX: M LOC: AndrewSofar Sounds PHONE #: [phone] EXAM DATE: 02/02/2020 STATUS: REG CLI FAX #: [phone] RAD #: D/C DT PAGE 3 Signed Report PROTHROMBIN [id number] 16:33:00 Test Item Value Reference Range Interpretation [...] PATIENT ON ANTICOAGULANTS: YLIST ANTICOAGULANTS: PlavixCOMPREHENSIVE METABOLIC [id number] 16:32:00 Test Item Value Reference Range Interpretation [...] N (test code = ALKP) COMPREHENSIVE METABOLIC [id number] 16:10:00 Test Item Value Reference Range Interpretation [...] code = ALKP) - XR CHEST 2 [id number] 16:10:00 Patient Name: AKILAH ANDRES Unit No: [id number] EXAMS: CPT CODE: [id number] XR CHEST 2 V 25736 LOCATION: T18 EXAM: CHEST 2 VIEWS INDICATION: , NC EOP COMPARISON: None. TECHNIQUE: PA and lateral [...] [email or web address] Orig Print D/T: S: 02/02/2020 (1613) [facility] NAME: AKILAH ANDRES [id number] [address] PHYS: [place] [address] : 1955 AGE: 64 SEX: M LOC: Z.SRG PHONE #: [phone] EXAM DATE: 02/02/2020 STATUS: PRE SD FAX #: [phone] RADIOLOGY NO: PAGE 1 Signed ReportPROTHROMBIN [id number] 16:09:00 Test Item Value Reference Range Interpretation [...] PATIENT ON ANTICOAGULANTS: YLIST ANTICOAGULANTS: PlavixCOMPREHENSIVE METABOLIC [id number] 16:08:00 Test Item Value Reference Range Interpretation [...] code = UNITS/L 38-126 ALKP) COMPREHENSIVE METABOLIC [id number] 16:07:00 Test Item Value Reference Range Interpretation [...] code = UNITS/L 38-126 ALKP) CBC W/AUTO [id number] 15:52:00 Test Item Value Reference Range Interpretation [...] 0.00 K/mm3 0.0-0.1 N NRBC#) GLUCOSE BEDSIDE [id number] 10:33:00 Test Item Value Reference Range Interpretation Comments GLUCOSE BEDSIDE TESTING 330 MG/DL 60-99 Noti fied Physician~ (test code = GLUBED) BASIC METABOLIC [id number] 05:51:00 Test Item Value Reference Range Interpretation [...] 0-189 mg/dL VERY HIGH...... ...>/= 190 mg/dL [id number] 05:51:00 Test Item Value Reference Range Interpretation Comments MAGNESIUM (test code = MAG) 2.0 MG/DL 1.6-2.3 N PROTHROMBIN [id number] 05:43:00 Test Item Value Reference Range Interpretation [...] agustin embolism. 3.0 - 4.5 Comments to Quality Control Chemist: WILL BRING TO LABPTT [id number] 05:43:00 Test Item Value Reference Range Interpretation Comments PTT ACTIVATED (test code = APTT) 28.9 SECONDS 25.1-36.5 N Comments to Quality Control Chemist: WILL BRING TO LABBASIC METABOLIC [id number] 05:42:00 Test Item Value Reference Range Interpretation [...] LDL (test MG/DL 0-99 code = LDL) [id number] 05:42:00 Test Item Value Reference Range Interpretation Comments MAGNESIUM (test code = MAG) 2.0 MG/DL 1.6-2.3 N CBC W/AUTO [id number] 05:41:00 Test Item Value Reference Range Interpretation [...] 0.00 K/mm3 0.0-0.1 N NRBC#) BASIC METABOLIC [id number] 05:38:00 Test Item Value Reference Range Interpretation [...] LDL (test code = LDL) MG/DL 0-99 [id number] 05:38:00 Test Item Value Reference Range Interpretation Comments MAGNESIUM (test code = MAG) MG/DL 1.6-2.3 BASIC METABOLIC [id number] 05:36:00 Test Item Value Reference Range Interpretation [...] LDL (test code = LDL) MG/DL 0-99 [id number] 05:36:00 Test Item Value Reference Range Interpretation Comments MAGNESIUM (test code = MAG) MG/DL 1.6-2.3
[2022-02-27] MEDS ORDERED: FUROSEMIDE 40 MG/4 ML VIAL ONE (12:13)
[2022-02-27 12:21] LABS: Absolute Lymphocytes (CBC) 0.7 K/uL (0.7-4.9); Hematocrit 30.9 % (39.6-49.0); Lymphocytes % 13.4 % (15.3-44.8); MPV 7.6 fL (7.6-11.3); RBC Red Blood Cell Count 3.74 M/uL (4.33-5.43)
[2022-02-27 12:26] LABS: Protime INR 1.39
[2022-02-27 12:42] LABS: Albumin 3.7 g/dL (3.4-5.0); Bilirubin Direct 0.6 mg/dL (0-0.2); Bilirubin Total 1.1 mg/dL (0.2-1.0); Potassium 3.8 mmol/L (3.5-5.1); Protein, Total 8.4 g/dL (6.4-8.2); Troponin High Sensitivity 17.5 pg/mL (<58.9)
--- NOTE | 2022-02-27 12:56 | ER ---
Nurse's Notes [facility] Name: Magdy Payan Age: 66 yrs Sex: Male : 1955 Arrival Date: 02/27/2022 Time: 11:22 Bed 6 Private MD: Diagnosis: Unspecified combined systolic (congestive) and diastolic (congestive) heart failure;Acute pulmonary edema;Dyspnea, unspecified Presentation: 02/27 11:28 Chief complaint: Patient states: he feels like he has a lot of fluid on his chest. ap3 patient reports having to be admitted a few months ago for need of diuresing with IV lasix. Patient reports feeling short of breath, and complains of having bilateral lower extremity swelling. Coronavirus screen: At this time, the client does not indicate any symptoms associated with coronavirus-19. Ebola Screen: No symptoms or risks identified at this time. Initial Sepsis Screen: Does the patient meet any 2 criteria? No. Patient's initial sepsis screen is negative. Does the patient have a suspected source of infection? No. Patient's initial sepsis screen is negative. Risk Assessment: Do you want to hurt yourself or someone else? Patient reports no desire to harm self or others. 11:28 Method Of Arrival: Ambulatory ap3 11:28 Acuity: ANTONIO 3 ap3 11:31 Onset of symptoms was September 2022. ap3 Triage Assessment: 11:33 General: Appears in no apparent distress. comfortable, Behavior is calm, cooperative, ap3 appropriate for age. Pain: Denies pain. Neuro: Level of Consciousness is awake, alert, obeys commands, Oriented to person, place, time, situation, Appropriate for age. Cardiovascular: Patient's skin is warm and dry. Respiratory: Reports shortness of breath Onset: The symptoms/episode began/occurred over the last 5 months, the patient has mild shortness of breath. Musculoskeletal: Swelling present in right leg and left leg pitting edema present in fior lower extremities. Historical: - Allergies: 11:32 NKDA; ap3 - PMHx: 11:32 Arthritis; Congestive heart failure; Diabetes - NIDDM; Hypertension; ap3 - Immunization history:: Client reports receiving the 2nd dose of the Covid vaccine, and booster Pneumococcal vaccine is not up to date, Flu vaccine is up to date. - Social history:: Smoking status: Patient denies any tobacco usage or history of. Patient uses alcohol, only on a social basis. - Family history:: not pertinent. - Hospitalizations: : No recent hospitalization is reported. Screenin:35 Abuse screen: Denies threats or abuse. Nutritional screening: No deficits noted. ap3 Tuberculosis screening: No symptoms or risk factors identified. 11:35 Fall Risk Fall in past 12 months (25 points). No secondary diagnosis (0 pts). Gait- ap3 Weak (10 pts.). Mental Status- Oriented to own ability (0 pts). Total Curiel Fall Scale indicates Low Risk Score (25-44 pts). Fall prevention measures have been instituted. Placed close to Nursing Station Frequent Obs/Assesments occuring Family Present and informed to notify staff if they need to leave bedside As available Patient and Family Educated on Fall Prevention Program and strategies. Assessment: 11:35 Respiratory: Airway is patent Respiratory effort is even, unlabored. ap3 11:45 General: Appears in no apparent distress. comfortable, Behavior is calm, cooperative. vg1 Pain: Denies pain. Neuro: Level of Consciousness is awake, alert, obeys commands, Oriented to person, place, time, situation. Cardiovascular: Patient's skin is warm and dry. Respiratory: Reports shortness of breath Airway is patent Respiratory effort is even, unlabored, Respiratory pattern is tachypnea Breath sounds with crackles in right posterior middle lobe. GI: Abdomen is round distended. : No signs and/or symptoms were reported regarding the genitourinary system. EENT: No signs and/or symptoms were reported regarding the EENT system. Derm: Skin is intact, Skin is pink, warm \T\ dry. Musculoskeletal: Swelling present in right leg and left leg. 13:00 Reassessment: Patient appears in no apparent distress at this time. No changes from vg1 previously documented assessment. Patient and/or family updated on plan of care and expected duration. Pain level reassessed. Patient is alert, oriented x 3, equal unlabored respirations, skin warm/dry/pink. 14:10 Reassessment: Patient appears in no apparent distress at this time. No changes from vg1 previously documented assessment. Patient and/or family updated on plan of care and expected duration. Pain level reassessed. Patient is alert, oriented x 3, equal unlabored respirations, skin warm/dry/pink. 15:00 Reassessment: Patient appears in no apparent distress at this time. Patient and/or vg1 family updated on plan of care and expected duration. Pain level reassessed. Patient is alert, oriented x 3, equal unlabored respirations, skin warm/dry/pink. Patient denies pain at this time. 16:15 Reassessment: Patient appears in no apparent distress at this time. No changes from vg1 previously documented assessment. Patient and/or family updated on plan of care and expected duration. Pain level reassessed. Patient is alert, oriented x 3, equal unlabored respirations, skin warm/dry/pink. 17:29 Reassessment: Attempted to call report. Reassessment: Patient appears in no apparent vg1 distress at this time. No changes from previously documented assessment. Patient and/or family updated on plan of care and expected duration. Pain level reassessed. Patient is alert, oriented x 3, equal unlabored respirations, skin warm/dry/pink. Vital Signs: 11:28 BP 132 / 78; Pulse 72; Resp 17; Temp 98.7; Pulse Ox 97% on R/A; Weight 106.59 kg; ap3 Height 5 ft. 9 in. (175.26 cm); 12:33 BP 123 / 89; Pulse 53; Resp 27; Pulse Ox 97% on R/A; vg1 13:30 BP 124 / 59; Pulse 65; Resp 24; Pulse Ox 94% on R/A; vg1 14:30 BP 140 / 72; Pulse 66; Resp 19; Pulse Ox 94% on R/A; vg1 15:30 BP 143 / 59; Pulse 60; Resp 22; Pulse Ox 94% on R/A; vg1 16:30 BP 133 / 81; Pulse 64; Resp 18; Pulse Ox 94% on R/A; vg1 17:00 BP 126 / 76; Pulse 76; Resp 20; Pulse Ox 97% on R/A; vg1 11:28 Body Mass Index 34.70 (106.59 kg, 175.26 cm) ap3 ED Course: 11:22 Patient arrived in ED. kz 11:30 Triage completed. ap3 11:33 Steven Herrera MD is Attending Physician. rn 11:35 Arm band placed on left wrist. ap3 11:36 Patient has correct armband on for positive identification. Placed in gown. Bed in low ap3 position. Call light in reach. Side rails up X 1. Adult w/ patient. 11:37 COVID swab sent to lab. ap3 11:42 Mya No, RN is Primary Nurse. vg1 11:58 Missed attempt(s): 20 gauge in right antecubital area. vg1 12:04 Initial lab(s) drawn, by me, sent to lab. Inserted saline lock: 22 gauge in right vg1 wrist, using aseptic technique. Blood collected. 12:04 First set of blood cultures drawn by me. vg1 12:55 Jazmyn Green MD is Hospitalizing Provider. rn 13:11 XRAY CXR (1 view) In Process Unspecified. EDMS 13:21 Second set of blood cultures drawn by lab staff. vg1 16:53 No provider procedures requiring assistance completed. Patient admitted, IV remains in ph place. Administered Medications: 12:12 Drug: Lasix (furosemide) 40 mg Route: IVP; Site: right wrist; vg1 17:59 Follow up: Response: No adverse reaction vg1 Outcome: 12:56 Decision to Hospitalize by Provider. rn 18:01 Admitted to Tele accompanied by tech, room 208, with chart, Report called to Irma ZELAYA vg1 18:01 Condition: good 18:01 Instructed on the need for admit. 18:15 Patient left the ED. vg1 Signatures: Dispatcher [employer] EDSteven Espinosa MD MD rn Hall, Patricia, RN RN Sana Colbert RN RN ap Mya No, GARCIA ZELAYA vg1 Negin Jerez
--- NOTE | 2022-02-27 12:56 | EDPHYS ---
Physician Documentation [facility] Name: Magdy Payan Age: 66 yrs Sex: Male : 1955 Arrival Date: 02/27/2022 Time: 11:22 Bed 6 Private MD: ED Physician Steven Herrera HPI: 02/27 11:44 This 66 yrs old Male presents to ER via Ambulatory with complaints of rn Breathing Difficulty. 11:44 The patient has shortness of breath at rest, with light activity. Onset: The rn symptoms/episode began/occurred 3 week(s) ago. 11:44 Duration: The symptoms are intermittent. The patient's shortness of breath is rn aggravated by exertion, light activity, supine position, talking, walking. Associated signs and symptoms: Pertinent positives: This patient does not have any pertinent positive signs or symptoms associated with shortness of breath. Pertinent negatives: non-productive cough, fever, hemoptysis. Severity of symptoms: At their worst the symptoms were moderate in the emergency department the symptoms are unchanged. The patient has experienced similar episodes in the past. The patient has been recently seen by a physician:. Reports feels like has fluid build up again, + increased swelling of legs and pants fitting tight, feels bloated. PCP increased his lasix recently and still not helping. No fever or cough. Reports waking up a lot at night having trouble breathing and sleeping in recliner. . Historical: - Allergies: 11:32 NKDA; ap3 - PMHx: 11:32 Arthritis; Congestive heart failure; Diabetes - NIDDM; Hypertension; ap3 - Immunization history:: Client reports receiving the 2nd dose of the Covid vaccine, and booster Pneumococcal vaccine is not up to date, Flu vaccine is up to date. - Social history:: Smoking status: Patient denies any tobacco usage or history of. Patient uses alcohol, only on a social basis. - Family history:: not pertinent. - Hospitalizations: : No recent hospitalization is reported. ROS: 11:44 Constitutional: Negative for fever, chills, and weight loss, Eyes: Negative for injury, rn pain, redness, and discharge, Neck: Negative for injury, pain, and swelling, Cardiovascular: Negative for chest pain, palpitations, + edema Respiratory: + sob Abdomen/GI: Negative for abdominal pain, nausea, vomiting, diarrhea, and constipation, : Negative for injury, bleeding, discharge, and swelling, MS/Extremity: Negative for injury and deformity, Skin: Negative for injury, rash, and discoloration, Neuro: Negative for headache, weakness, numbness, tingling, and seizure. Exam: 11:44 Constitutional: This is a well developed, well nourished patient who is awake, alert, rn and in no acute distress. Head/Face: Normocephalic, atraumatic. Eyes: Periorbital areas with no swelling, redness, or edema. ENT: NO stridor Cardiovascular: Regular rate and rhythm. No pulse deficits. Respiratory: No increased work of breathing, no retractions or nasal flaring. Abdomen/GI: Soft, non-tender Skin: Warm, dry with normal turgor. Normal color with no rashes, no lesions, and no evidence of cellulitis. MS/ Extremity: Pulses equal, no cyanosis. Neurovascular intact. Full, normal range of motion. Equal circumference. 2+ pitting edema bilateral lower ext Neuro: Awake and alert, GCS 15 Vital Signs: 11:28 BP 132 / 78; Pulse 72; Resp 17; Temp 98.7; Pulse Ox 97% on R/A; Weight 106.59 kg; ap3 Height 5 ft. 9 in. (175.26 cm); 12:33 BP 123 / 89; Pulse 53; Resp 27; Pulse Ox 97% on R/A; vg1 13:30 BP 124 / 59; Pulse 65; Resp 24; Pulse Ox 94% on R/A; vg1 14:30 BP 140 / 72; Pulse 66; Resp 19; Pulse Ox 94% on R/A; vg1 15:30 BP 143 / 59; Pulse 60; Resp 22; Pulse Ox 94% on R/A; vg1 16:30 BP 133 / 81; Pulse 64; Resp 18; Pulse Ox 94% on R/A; vg1 17:00 BP 126 / 76; Pulse 76; Resp 20; Pulse Ox 97% on R/A; vg1 11:28 Body Mass Index 34.70 (106.59 kg, 175.26 cm) ap3 MDM: 11:33 Patient medically screened. rn 12:54 Differential diagnosis: Bronchitis CHF exacerbation, Chronic Obstructive Pulmonary rn Disease Pneumothorax pulmonary edema. Antibiotic administration:. Data reviewed: vital signs, nurses notes, lab test result(s), EKG, radiologic studies, plain films, and as a result, I will admit patient. Counseling: I had a detailed discussion with the patient and/or guardian regarding: the historical points, exam findings, and any diagnostic results supporting the discharge/admit diagnosis, lab results, radiology results, the need for further work-up and treatment in the hospital. Response to treatment: There is no appreciated change of the patient's symptoms at this time, and as a result, I will admit patient. Admission orders: after a detailed discussion of the patient's condition and case, the admit orders are written by me. 02/27 11:31 Order name: COVID-19 SARS RT PCR (Document "Date of Onset" if Symptomatic); Complete ap3 Time: 12:52 02/27 11:41 Order name: BMP; Complete Time: 12:52 02/27 11:41 Order name: Blood Culture Adult (2) 02/27 11:41 Order name: CBC with Diff; Complete Time: 12:52 02/27 11:41 Order name: Hepatic Function; Complete Time: 12:52 02/27 11:41 Order name: NT PRO-BNP; Complete Time: 12:52 02/27 11:41 Order name: PT-INR; Complete Time: 12:52 02/27 11:41 Order name: Ptt, Activated; Complete Time: 12:52 02/27 11:41 Order name: Troponin HS; Complete Time: 12:52 02/27 16:23 Order name: Thyroid Stimulating Hormone [facility] 02/27 16:23 Order name: UR CREAT [facility] 02/27 16:23 Order name: UR SODIUM [facility] 02/27 16:23 Order name: CBC with Automated Diff [facility] 02/27 16:23 Order name: CBC with Automated Diff [facility] 02/27 11:41 Order name: XRAY CXR (1 view); Complete Time: 13:29 02/27 11:41 Order name: EKG; Complete Time: 11:42 02/27 16:23 Order name: CONS Physician Consult [facility] 02/27 16:23 Order name: 60g Consistent Carbohydrate (ADA 1800/2000) [facility] 02/27 16:23 Order name: Echo with Doppler [facility] 02/27 16:23 Order name: Comprehensive Metabolic Panel [facility] 02/27 16:23 Order name: Comprehensive Metabolic Panel [facility] 02/27 16:23 Order name: Magnesium [facility] 02/27 16:23 Order name: Magnesium [facility] 02/27 16:23 Order name: Magnesium [facility] 02/27 16:23 Order name: Magnesium [facility] 02/27 16:23 Order name: Troponin High Sensitivity [facility] 02/27 16:23 Order name: Troponin High Sensitivity [facility] 02/27 16:23 Order name: Troponin High Sensitivity [facility] 02/27 16:23 Order name: Renal Ultrasound-Complete [facility] 02/27 11:41 Order name: IV Start; Complete Time: 12:09 rn 02/27 11:41 Order name: Cardiac monitoring; Complete Time: 12:23 rn 02/27 11:41 Order name: EKG - Nurse/Tech; Complete Time: 12:23 rn 02/27 11:41 Order name: Labs collected and sent; Complete Time: 12:09 rn 02/27 11:41 Order name: O2 Per Protocol; Complete Time: 12: rn 02/27 11:41 Order name: O2 Sat Monitoring; Complete Time: 12: rn 02/27 16:26 Order name: CONS Physician Consult [facility] Administered Medications: 12:12 Drug: Lasix (furosemide) 40 mg Route: IVP; Site: right wrist; vg1 17:59 Follow up: Response: No adverse reaction vg1 Disposition Summary: 02/27/22 12:56 Hospitalization Ordered Hospitalization Status: Inpatient Admission rn Provider: Jazmyn Green rn Location: Telemetry/MedSurg (Inpatient) rn Condition: Stable rn Problem: an acute exacerbation rn Symptoms: have improved rn Bed/Room Type: Standard rn Room Assignment: 208(02/27/22 17:13) em1 Diagnosis - Unspecified combined systolic (congestive) and diastolic (congestive) heart failure rn - Acute pulmonary edema rn - Dyspnea, unspecified rn Forms: - Medication Reconciliation Form rn - SBAR form rn Signatures: Dispatcher [employer] Steven Horne MD MD rn Martinez, Eric em1 Sana Colbert RN RN Mya Ortiz, RN RN vg1 Corrections: (The following items were deleted from the chart) 17:13 12:56 rn em1
--- NOTE | 2022-02-27 13:23 | RAD REPORT ---
EXAM DESCRIPTION: RAD - Chest Single View - 02/27/2022 1:09 pm CLINICAL HISTORY: DYSPNEA COMPARISON: Portable 10/25/2021 and 07/12/2020 TECHNIQUE: AP portable chest image was obtained 02/27/2022 1:09 pm . FINDINGS: No peripheral mass or consolidation. Interstitial markings are prominent as a baseline can also accentuated by shallow inspiration. Sternotomy wires are in place. Enlarged cardiac silhouette is again noted. No measurable pleural effusion and no pneumothorax. No acute bony abnormality seen. N o acute aortic findings suspected. IMPRESSION: Mild CHF/volume overload pattern, much of which is chronic. No peripheral mass or consolidation.
[2022-02-27] MEDS ORDERED: MORPHINE 2 MG/ML SYR IV PRN (16:12)
[2022-02-27] MEDS ORDERED: ALBUTEROL 2.5 MG/3 ML NEB SOL NEB PRN (16:12)
[2022-02-27] MEDS ORDERED: ONDANSETRON 4 MG/2 ML VIAL IV PRN (16:12)
[2022-02-27] MEDS ORDERED: ACETAMINOPHEN 500 MG TAB PO PRN (16:12)
--- NOTE | 2022-02-27 16:12 | P.HP ---
Certification for Inpatient With expected LOS: >2 Midnights Patient will require the following post-hospital care: None Practitioner: I am a practitioner with admitting privileges, knowledge of patient current condition, hospital course, and medical plan of care. Services: Services provided to patient in accordance with Admission requirements found in Title 42 Section 412.3 of the Code of Federal Regulations Patient History Date of Service: 02/27/22 Reason for admission: Shortness of breath History of Present Illness: 66-year-old male with past medical history of hypertension, CAD status post CABG x2 last 2 years ago, history of systolic CHF with echo from 2019 showing EF of 45% with global hypokinesis, states he follows with Dr. Petit, status post evaluated recently by pulmonary as recommended home CPAP presented because of increasing shortness of breath since the last 2 weeks. He admits to increasing lower extremity edema. Initial shortness of breath was on exertion becoming at rest. He states intermittent paroxysmal nocturnal dyspnea. He was previously taking Lasix 40 twice daily but was recently increased 200 mg every morning due to urine frequency worse at night. He states his leg swelling has been worsening based unable to tell much weight gain. On presentation ED ED his O2 sat was at 90% on room air but noted with easy dyspnea. EKG shows mild sinus bradycardia at [address] segment changes. Chest x-ray shows cardiomegaly with mild pulmonary edema. He has been admitted for CHF exacerbation. He was also noted with elevated creatinine Allergies No Known Drug Rondey Allergy (Uncoded 08/06/16 20:51) Unknown Home Medications: Amlodipine Besylate/Benazepril [Amlodipine-Benazepril 5-20 mg] 1 tab PO DAILY 07/12/20 Aspirin [Aspirin EC 81 MG] 81 mg PO DAILY 07/12/20 Atorvastatin Calcium [Lipitor] 40 mg PO BEDTIME 07/12/20 Carvedilol [Coreg] 25 mg PO DAILY 07/12/20 Clopidogrel Bisulfate [Plavix*] 75 mg PO DAILY 07/12/20 Fenofibrate [Tricor*] 48 mg PO DAILY 07/12/20 Ferrous Sulfate [Ferrous Sulfate*] 325 mg PO BID 07/12/20 Furosemide 40 mg PO BID 07/12/20 Gabapentin [Gralise] 300 mg PO BID 07/12/20 Glipizide [Glipizide ER] 5 mg PO DAILY 07/12/20 Insulin Glargine,Hum.rec.anlog [Lantus Solostar] 30 units SQ BEDTIME 07/12/20 Sitagliptin Phos/Metformin HCl [Janumet 50-1,000 mg Tablet] 1 tab PO BEDTIME 07/12/20 Cyanocobalamin/Cobamamide [Vitamin B-12 5,000 Mcg Tab Sl] 1 each SL DAILY #30 tab.subl 07/13/20 - Past Medical/Surgical History Diabetic: Yes -: hypertension -: coronary artery disease -: hyperlipidemia -: IDDM -: NM -: CABAG x2 -: left knee sx - Family History Father -: Heart disease, Hypertension, Diabetes Mother -: Heart disease, Hypertension - Social History Smoking Status: Never smoker Smoking therapy provided: No Patient receptive to therapy: No Alcohol use: Yes CD- Drugs: No Caffeine use: Yes Place of Residence: Home Review of Systems 10-point ROS is otherwise unremarkable Physical Examination - Physical Exam General: Alert, In no apparent distress, Oriented x3 HEENT: Atraumatic, Normocephalic, PERRLA Neck: Supple, 2+ carotid pulse no bruit, JVD not distended Respiratory: Diminished, Crackles/rales Cardiovascular: Regular rate/rhythm, Normal S1 S2, Edema Capillary refill: <2 Seconds Gastrointestinal: Normal bowel sounds, Soft and benign, Non-distended, No ascites Musculoskeletal: No tenderness, Swelling Neurological: Normal gait, Normal speech, Normal strength at 5/5 x4 extr, Normal tone - Studies Laboratory Data (last 24 hrs) 02/27/22 12:04: PT 15.4 H, INR 1.39, APTT 38.1 H 02/27/22 12:04: WBC 5.3, Hgb 10.1 L, Hct 30.9 L, Plt Count 309 02/27/22 12:04: Sodium 140, Potassium 3.8, BUN 26 H, Creatinine 1.49 H, Glucose 129 H, Total Bilirubin 1.1 H, AST 12 L, ALT 15, Alkaline Phosphatase 109 Assessment and Plan - Plan Acute systolic CHF exacerbation Persistent fluid overload/pulmonary edema/lower extremity edema Hypertensioncontrolled Coronary artery disease status post CABGstable History of obstructive sleep apnea Diabetes mellitus Hyperlipidemia CKD stage III Plan We will admit patient to observation We will obtain repeat echo Start Lasix 40 mg every 12 Mild elevation in creatinine to 1.49, obtain renal sonogram to rule out urinary retention as well as hydronephrosis May need cardiology consult Serial set of cardiac enzymes Follow O2 sats post ambulation in a.m. after echo Subcutaneous Lovenox for DVT prophylaxis Strict glycemic control, continue home regimen with Accu-Cheks - Advance Directives Does patient have a Living Will: No Does patient have a Durable POA for Healthcare: No Physician Review: Patient Assessed, Agree with Above Assessment and Plan Critical Care: No Time Spent Managing Pts Care (In Minutes): 70
[2022-02-27] MEDS ORDERED: HYDRALAZINE HCL 20 MG/ML VIAL IV PRN (16:18)
[2022-02-27] MEDS ORDERED: Oxycodone HCl/Acetaminophen 1 TAB TAB PO PRN (16:19)
[2022-02-27] MEDS: INSULIN -REGULAR HUMAN 50 UNIT/0.5 ML ML SQ SCH ×2 (16:30→20:48)
[2022-02-27] MEDS: glipiZIDE 5 MG TAB PO SCH (17:00)
[2022-02-27] MEDS: FUROSEMIDE 40 MG/4 ML VIAL IV SCH (18:22)
[2022-02-27] MEDS: ENOXAPARIN 40 MG/0.4 ML SQ SCH (18:22)
[2022-02-27 18:34] VITALS: BMI 34.5
[2022-02-27 20:18] LABS: Thyroid Stimulating Hormone 1.53 uIU/mL (0.360-3.740)
[2022-02-27 20:32] VITALS: O2SAT 93
--- NOTE | 2022-02-27 20:36 | RAD REPORT ---
EXAM DESCRIPTION: US - Renal Ultrasound-Complete - 02/27/2022 8:27 pm CLINICAL HISTORY: ARF COMPARISON: Abdomen Pelvis W Contrast dated 08/06/2016 FINDINGS: The right kidney measures 10.0 x 4.8 x 3.8 cm. The left kidney measures 10.9 x 6.1 x 4.3 cm. Renal cortical thickness and echogenicity are normal. No hydronephrosis or suspicious renal mass. No bladder wall thickening or mass. No intraluminal stone or mass. IMPRESSION: No hydronephrosis or suspicious renal mass. No other significant findings.
[2022-02-27] MEDS ORDERED: ATORVASTATIN 40 MG TAB PO SCH (21:00)
[2022-02-28 06:14] LABS: Absolute Lymphocytes (CBC) 0.8 K/uL (0.7-4.9); Hematocrit 31.7 % (39.6-49.0); Lymphocytes % 12.6 % (15.3-44.8); MPV 7.4 fL (7.6-11.3); RBC Red Blood Cell Count 3.85 M/uL (4.33-5.43)
[2022-02-28] MEDS: FUROSEMIDE 40 MG/4 ML VIAL IV SCH (06:25)
[2022-02-28 06:35] LABS: Albumin 3.6 g/dL (3.4-5.0); Bilirubin Total 1.3 mg/dL (0.2-1.0); Potassium 3.5 mmol/L (3.5-5.1); Protein, Total 8.4 g/dL (6.4-8.2)
[2022-02-28] MEDS: INSULIN -REGULAR HUMAN 50 UNIT/0.5 ML ML SQ SCH ×2 (07:30→11:30)
--- NOTE | 2022-02-28 07:33 | P.CNS ---
Date of Consult: 02/28/22 Reason for Consult: JAVIER Requesting Physician: Salvador Rosario Chief Complaint: Shortness of breath History of Present Illness: 66M w/ PMHx of Htn, CAD s/p CABG, & chronic systolic HF, most recent LVEF 45%, who p/w a 2 week hx of progressive SOB & BLE edema, admitted for acute exacerbation of CHF, & referred to Nephrology for JAVIER. His baseline SCr is 1.0- 1.1 as of Aug 2017. SCr on adm is 1.49, & today at 1.55. He denies obstructive or irritative voiding complaints. He denies dysuria, flank pain, or fever. Allergies No Known Allergies Allergy (Unverified 02/28/22 12:50) Home Medications: Aspirin [Aspirin EC 81 MG] 81 mg PO DAILY 07/12/20 Atorvastatin Calcium [Lipitor] 40 mg PO BEDTIME 07/12/20 Carvedilol [Coreg] 25 mg PO DAILY 07/12/20 Clopidogrel Bisulfate [Plavix*] 75 mg PO DAILY 07/12/20 Fenofibrate [Tricor*] 48 mg PO DAILY 07/12/20 Furosemide 40 mg PO DAILY 07/12/20 Gabapentin [Gralise] 600 mg PO BID 07/12/20 Glipizide [Glipizide ER] 5 mg PO DAILY 07/12/20 Insulin Glargine,Hum.rec.anlog [Lantus Solostar] 30 units SQ BEDTIME 07/12/20 Sitagliptin Phos/Metformin HCl [Janumet 50-1,000 mg Tablet] 1 tab PO BID 07/12/20 Furosemide [Lasix] 80 mg PO DAILY #30 tablet 02/28/22 - Past Medical/Surgical History Diabetic: Yes -: hypertension -: coronary artery disease -: hyperlipidemia -: IDDM -: MD -: CABAG x2 -: left knee sx - Family History Father Medical History: Heart disease, Hypertension, Diabetes Mother Medical History: Heart disease, Hypertension - Social History Smoking Status: Unknown if ever smoked Alcohol use: Yes CD- Drugs: No Caffeine use: Yes Place of Residence: Home Review of Systems General: Weakness Eyes: Unremarkable ENT: Unremarkable Respiratory: Shortness of Breath, SOB with Excertion Cardiovascular: Paroxysmal Noc. Dyspnea, Edema Gastrointestinal: Unremarkable Genitourinary: Unremarkable Musculoskeletal: Pedal edema Integumentary: Unremarkable Neurological: Unremarkable Lymphatics: Unremarkable Physical Examination Temp Pulse Resp BP Pulse Ox 97.7 F 88 18 140/68 93 02/28/22 04:00 02/28/22 04:00 02/28/22 04:00 02/28/22 04:00 02/28/22 04:00 General: In no apparent distress HEENT: Atraumatic, Normocephalic Neck: Supple Respiratory: Crackles/rales Cardiovascular: No rubs, No murmurs Gastrointestinal: Soft and benign, No guarding Musculoskeletal: No clubbing, Swelling Integumentary: No rashes, No warmth Neurological: Normal speech, Normal tone Lymphatics: No axilla or inguinal lymphadenopathy Urinary: Other (no bladder distention) External genitalia: Deferred Rectal: Deferred Laboratory Data (last 24 hrs) 02/27/22 12:04: PT 15.4 H, INR 1.39, APTT 38.1 H 02/27/22 12:04: WBC 5.3, Hgb 10.1 L, Hct 30.9 L, Plt Count 309 02/27/22 12:04: Sodium 140, Potassium 3.8, BUN 26 H, Creatinine 1.49 H, Glucose 129 H, Total Bilirubin 1.1 H, AST 12 L, ALT 15, Alkaline Phosphatase 109 Conclusions/Impression: # JAVIER 2/2 CRS1 SCr on adm 1.49, today at 1.55 Baseline SCr 1.0-1.1 as of Aug 2017 CK wnl, no rhabdo Urine chem non-prerenal No overt proteinuria, random UPCR 0.1g Renal US unremarkable Basye po fluid intake Monitor renal panel # Acute on chronic systolic HF Hx of CAD s/p CABG SOB & BLE edema improved BNP sig elevated, trop neg CXR +congestion TTE in 2019 showed LVEF of 45-50% Chest CT in Jun 2020 showed no e/o of pulmo Htn. Urine chem showed no secondary hyperaldo physiology. No indication to add flaquito. Revise diuretics to Lasix 120 mg po bid Weigh daily. Once dry weight is achieved, plan on adjusting lasix to keep wt w/in 5 lbs up/down from target. If wt increases > 5 lbs above target wt, double lasix dose. Conversely, if wt decreases > 5 lbs below target wt, halve lasix dose. Keep lasix bid dosing Low Na diet < 2g/d Basye po fluid intake unless he develops hyponatremia < 130 meq/L # Htn BP at goal # Anemia Monitor H/H
[2022-02-28] MEDS ORDERED: ASPIRIN EC 81 MG TAB PO SCH (09:00)
[2022-02-28] MEDS ORDERED: FENOFIBRATE 48 MG TAB PO SCH (09:00)
[2022-02-28] MEDS ORDERED: CLOPIDOGREL 75 MG TABLET PO SCH (09:00)
[2022-02-28] MEDS: ENOXAPARIN 40 MG/0.4 ML SQ SCH (09:40)
[2022-02-28] MEDS: glipiZIDE 5 MG TAB PO SCH (09:40)
[2022-02-28] MEDS ORDERED: PNEUMOCOCCAL VACCINE 0.5 ML IMVAC ONE (13:00)
--- NOTE | 2022-02-28 13:11 | P.DS ---
Admission Date: 02/27/22 Discharge Date: 02/28/22 Disposition: ROUTINE DISCHARGE Discharge Condition: GOOD Reason for Admission: Shortness of breath Brief History of Present Illness: Patient is 66 years of age failed outpatient therapy for presumed diastolic dysfunction also had renal insufficiency therapy in the hospital Hospital Course: Patient was aggressively diuresed with IV Lasix he is responded much better by pharmacy aide no evidence of hydronephrosis commend 80 mg of Lasix with additional 40 mg is a weight increase more than 5 pounds labs all reviewed the time of discharge he was alert oriented responsive vital signs all stable pressure satisfactory chest clear cardiovascular system heart sounds normal abdomen soft plan to discharge home with follow-up with DrNiki With Dr. Bella Vital Signs/Physical Exam: Temp Pulse Resp BP Pulse Ox 97.7 F 75 16 144/76 H 93 02/28/22 08:00 02/28/22 08:00 02/28/22 08:00 02/28/22 08:00 02/28/22 08:00 Laboratory Data at Discharge: WBC 6.2 K/uL (4.3-10.9) D 02/28/22 05:53 Hgb 10.3 g/dL (13.6-17.9) L 02/28/22 05:53 Hct 31.7 % (39.6-49.0) L 02/28/22 05:53 Plt Count 320 K/uL (152-406) 02/28/22 05:53 PT 15.4 SECONDS (9.5-12.5) H 02/27/22 12:04 INR 1.39 02/27/22 12:04 APTT 38.1 SECONDS (24.3-36.9) H 02/27/22 12:04 Sodium 138 mmol/L (136-145) 02/28/22 05:53 Potassium 3.5 mmol/L (3.5-5.1) 02/28/22 05:53 BUN 23 mg/dL (7-18) H 02/28/22 05:53 Creatinine 1.55 mg/dL (0.55-1.3) H 02/28/22 05:53 Glucose 116 mg/dL (74-106) H 02/28/22 05:53 Magnesium 2.0 mg/dL (1.8-2.4) 02/27/22 17:36 Total Bilirubin 1.3 mg/dL (0.2-1.0) H 02/28/22 05:53 AST 14 U/L (15-37) L 02/28/22 05:53 ALT 19 U/L (12-78) 02/28/22 05:53 Alkaline Phosphatase 106 U/L (45-117) 02/28/22 05:53 Home Medications: Aspirin [Aspirin EC 81 MG] 81 mg PO DAILY 07/12/20 Atorvastatin Calcium [Lipitor] 40 mg PO BEDTIME 07/12/20 Carvedilol [Coreg] 25 mg PO DAILY 07/12/20 Clopidogrel Bisulfate [Plavix*] 75 mg PO DAILY 07/12/20 Fenofibrate [Tricor*] 48 mg PO DAILY 07/12/20 Furosemide 40 mg PO DAILY 07/12/20 Gabapentin [Gralise] 600 mg PO BID 07/12/20 Glipizide [Glipizide ER] 5 mg PO DAILY 07/12/20 Insulin Glargine,Hum.rec.anlog [Lantus Solostar] 30 units SQ BEDTIME 07/12/20 Sitagliptin Phos/Metformin HCl [Janumet 50-1,000 mg Tablet] 1 tab PO BID 07/12/20 Furosemide [Lasix] 80 mg PO DAILY #30 tablet 02/28/22 New Medications: Furosemide [Lasix] 80 mg PO DAILY #30 tablet Physician Discharge Instructions: Weight himself daily if weight increase more than 5 pounds additional 40 mg of Lasix 6 has been increased to 80 mg once a day follow-up with Dr. Bella in 1 week Diet: Low sodium Followup: FRANSISCO MOODY [Primary Care Provider] - Doris Bella [ACTIVE - CAN ADMIT] -
[2022-02-28 17:05] VITALS: BP 142/89; TEMP 97.7
--- NOTE | 2022-03-03 07:01 | ECHO ---
HEIGHT: 5 ft 9 in WEIGHT: 234 lb 0 oz DATE OF STUDY: 02/28/[address]: Jazmyn Green MD 2-DIMENSIONAL: YES M.MODE: YES DOPPLER: YES COLOR FLOW: YES TDS: NO PORTABLE: NO DEFINITY: NO BUBBLE STUDY: NO DIAGNOSIS: CVA, RULE OUT VEGETATION CARDIAC HISTORY: CATHERIZATION:YES SURGERY: YES PROSTHETIC VALVE: NO PACEMAKER: NO MEASUREMENTS (cm) DIASTOLIC (NORMALS) SYSTOLIC (NORMALS) IVSd 1.1 (0.6-1.2) LA Diam 4.2 (1.9-4.0) LVEF 63% LVIDd 5.1 (3.5-5.7) LVIDs 3.4 (2.0-3.5) %FS 34% LVPWd 1.2 (0.6-1.2) Ao Diam 2.9 (2.0-3.7) 2 DIMENSIONAL ASSESSMENT: RIGHT ATRIUM: NORMAL LEFT ATRIUM: ENLARGED RIGHT VENTRICLE: NORMAL LEFT VENTRICLE: NORMAL TRICUSPID VALVE: MITRAL VALVE: MITRAL ANNULAR CALCIFICATION PULMONIC VALVE: NORMAL AORTIC VALVE: THICKENED PERICARDIAL EFFUSION: NONE AORTIC ROOT: NORMAL LEFT VENTRICULAR WALL MOTION: NORMAL DOPPLER/COLOR FLOW: SEE BELOW COMMENTS: NORMAL LEFT VENTRICULAR EJECTION FRACTION 60-65%. THICKENED, CALCIFIED MITRAL VALVE WITH MILD MITRAL REGURGITATION. CANNOT RULE OUT VEGETATION, RECOMMEND PAMELA. THICKENED AORTIC VALVE WITH MODERATE AORTIC STENOSIS AND MILD AORTIC SCLEROSIS. MILD TRICUSPID REGURGITATION. LEFT ATRIAL ENLARGEMENT. TECHNOLOGIST: Candace WASHINGTON
--- NOTE | 2022-03-03 11:25 | EKG ---
Test Date: 2022-02-27 Test Time: 12:20:05 Hospital Pharmacy Technician: SAMIRA MEASUREMENT RESULTS: Intervals: Rate: 61 WV: 144 QRSD: 88 QT: 442 QTc: 444 [place]: P: 99 WV: 144 QRS: 65 T: 259 INTERPRETIVE STATEMENTS: Sinus rhythm with premature atrial complexes ST & T wave abnormality, consider inferolateral ischemia Abnormal ECG Compared to ECG 10/25/2021 19:11:33 Atrial premature complex(es) now present Prolonged QT interval no longer present ST (T wave) deviation still present Possible ischemia still present Electronically Signed On 03-03-22 11:14:12 CDT by Kirill Leblanc
== END 2022-02-28 16:30 | disposition home or self-care (01) ==
LOC: ER 11:20 → ERHOLD 16:57 → 2ND 18:02
PROVIDERS: ADMIT Internal Medicine; ATTEND Internal Medicine
DX: I11.0 Hypertensive heart disease with heart failure (principal); I50.23 Acute on chronic systolic (congestive) heart failure; N17.9 Acute kidney failure, unspecified; E11.9 Type 2 diabetes mellitus without complications; E78.5 Hyperlipidemia, unspecified; I25.2 Old myocardial infarction; Z95.1 Presence of aortocoronary bypass graft; Z20.822 Contact with and (suspected) exposure to COVID-19
CPT/HCPCS: 93005; 93306; 87040 ×2; 85025 ×2; 80048; 36415; 83735; 82550; 85610; 84300; 82947 ×3; 80076; 85730; 84443; 82570; 84484 ×3; 80053; 83880; 84156; 71045; 90471; 90732; 76770; 94760 ×2; 96374; 99285; U0003; J1940 ×4; J1650 ×2; G0378 ×3